=== PATIENT | female | born 1945 | race Caucasian/White ===

== ENCOUNTER 2023-10-10 03:09 | Observation (INO) | payer MEDICARE, OTHER, SELFPAY ==
[2023-10-10] VITALS (26 sets, daily range): BP systolic 98–188; BP diastolic 57–85; PULSE 66–85; RESP 10–22; TEMP 36.4–36.8; O2SAT 92–98; BMI 28.3; BMI 29.9
--- NOTE | 2023-10-10 03:22 | EDS_ITS ---
HPI History of Present Illness Chief Complaint: Headache Informant: patient and spouse/S.O. Narrative Narrative: Patient presents for a headache that started about 6 hours prior to arrival while she was resting. She states it is sharp, bifrontal, and seem like it was behind her eyes. She then states that she thinks she may have had a mini stroke. In discussing more these details, for symptom she had was that her left hand went numb around 1530 yesterday, which is around 12 hours prior to arrival/evaluation. She then noticed that the left side of her mouth/lower face did not seem to work and seem droopy then when she looked at it. She thinks this lasted maybe 30 minutes before went away. At some point she remembers being off balance yesterday but does not recall exactly what time that started. She has been walking crooked all day. The headache it seems started later, and at 1 point she states she had trouble seeing anything off to the left but that seems to have resolved. She denies having any trouble speaking or understanding others. The tells me that she was doing things that made him think she was confused off and on this evening. For instance she would turn the water faucet on for no good reason and then not know why she turned it on. She has a history of TIAs in the past. She also has a history of CAD status post CABG, stent last year, and A-fib. She is on aspirin and clopidogrel no anticoagulants. Denies any bleeding from anywhere recently. [facility] Medical History (Updated 10/10/23 @ 04:[address] Parish Cárdenas MD) CAD (coronary artery disease) GERD (gastroesophageal reflux disease) HTN (hypertension) Hypothyroid Home Medications amlodipine 10 mg tablet 10 mg PO DAILY 10/10/23 [History Last Taken Unknown] aspirin 81 mg tablet,delayed release 81 mg PO DAILY 10/10/23 [History Last Taken Unknown] atenolol 25 mg tablet 25 mg PO DAILY 10/10/23 [History Last Taken Unknown] atorvastatin 40 mg tablet 40 mg PO DAILY 10/10/23 [History Last Taken Unknown] clopidogrel 75 mg tablet 75 mg PO DAILY 10/10/23 [History Last Taken Unknown] ergocalciferol (vitamin D2) 1,250 mcg (50,000 unit) capsule 50,000 unit PO QWEEK 10/10/23 [History Last Taken Unknown] ferrous sulfate 325 mg (65 mg iron) tablet 650 mg PO DAILY 10/10/23 [History Last Taken Unknown] levothyroxine 100 mcg tablet 100 mcg PO MOWEFR 10/10/23 [History Last Taken Unknown] levothyroxine 88 mcg tablet 88 mcg PO SUTUTHSA 10/10/23 [History Last Taken Unknown] omeprazole 20 mg capsule,delayed release 20 mg PO DAILY 10/10/23 [History Last Taken Unknown] oxybutynin chloride 10 mg tablet,extended release 24 hr 10 mg PO DAILY 10/10/23 [History Last Taken Unknown] Allergy/AdvReac Type Severity Reaction Status Date / Time meperidine [From Demerol] Allergy Vomiting Verified 10/10/23 03:15 morphine Allergy Vomiting Verified 10/10/23 03:15 Surgical History (Updated 10/10/23 @ 04:[address] Parish Cárdenas MD) H/O heart artery stent Hx of CABG Social History Smoking Status: Never smoker ROS ROS ED Constitutional Constitutional ED: Denies chills or fever(s) Eyes Eyes: Reports change in vision bilateral (Trouble with visual rodriguez to the left earlier, but vision back to normal/baseline now); Denies diplopia ENT ENT ED: Denies rhinorrhea or sore throat Cardiovascular Cardiovascular: Denies chest pain or palpitations Respiratory/Chest Respiratory/Chest: Denies cough or dyspnea Gastrointestinal Gastrointestinal: Denies abdominal pain, diarrhea, nausea or vomiting Genitourinary Genitourinary ED: Denies dysuria or hematuria Musculoskeletal Musculoskeletal: Denies back pain or neck pain Integumentary Denies abscess or rash Neurologic Neurologic: Reports as per HPI, headache(s), lack of coordination and paresthesias LUE (Resolved now); Denies seizures, syncope, vertigo or weakness Psychiatric Psychiatric: Denies anxiety or suicidal thoughts EXAM Physical Exam Const Vital Signs: 10/10/23 03:10 10/10/23 03:30 10/10/23 03:51 Temperature 98.2 F Temperature Source Temporal Pulse Rate 66 74 Respiratory Rate 10 L 20 H Blood Pressure 171/79 H 169/76 H Blood Pressure Mean 109 107 Pulse Ox 92 94 Oxygen Delivery Method Room Air Room Air Room Air 10/10/23 04:00 10/10/23 04:30 10/10/23 04:47 Temperature 98.0 F Temperature Source Pulse Rate 70 73 78 Respiratory Rate 18 18 19 H Blood Pressure 161/75 H 170/85 H 169/77 H Blood Pressure Mean 103 113 107 Pulse Ox 98 93 97 Oxygen Delivery Method Room Air Room Air Positive well nourished and well developed General Appearance ED: well developed and NAD HEENT Reports moist mucous membranes normocephalic and atraumatic Eyes PERRL and EOMs intact bilaterally Neck full ROM and supple Neck Narrative: No audible carotid bruits bilaterally Resp normal respiratory effort and clear to auscultation bilaterally Cardio regular rate, regular rhythm and no murmurs Rate: Negative for tachycardic GI non-tender and non-distended Auscultation: normoactive bowel sounds Palpation: soft Back/Spine no CVA tenderness General Back: other FROM Extremity normal to inspection General Extremety ED: Negative for edema, pulses abnormal or tenderness General Extremity: Negative for edema or pulses abnormal Neuro oriented x3, CN's II-XII intact bilaterally and no sensory deficits noted Neuro Narrative: Normal speech, no aphasia. Normal neurologic exam. Normal [id number] and [id number] bilaterally. Ambulatory without ataxia but short shuffling, cautious gait. Sensorium / Orientation: awake and alert Motor Exam: strength 5/5 throughout Psych mental status grossly normal Skin no rashes or lesions noted and no wounds NIHSS NIHSS Initial: 1a Level of Consciousness: 0 1b LOC Questions (Score 2 if aphasic/stupor): 0 1c LOC Commands (Only score 1st attempt): 0 2 Best Gaze (If aphasic, use reflexive mvmts.): 0 3 Visual: 0 4 Facial Palsy: 0 5 Motor Arm Right (UN = amputation/fusion): 0 5 Motor Arm Left: 0 6 Motor Leg Right: 0 6 Motor Leg Left: 0 7 Limb ataxia (Only + if out of proportion): 0 8 Sensory (Aphasia/stupor=0 or 1, coma=2): 0 9 Best Language: 0 10 Dysarthria (mute, coma=2, intubated=UN): 0 11 Extinction and Inattention (only scored if +): 0 Total Score: 0 MDM MDM MDM Narrative Medical decision making narrative: Patient sent for emergent CT/CT angiography, I reviewed the images and the report which I agree with, it shows no hemorrhage and no LVO. Discussed with hospitalist for admission, patient was given Reglan to see if that would help her headache and prevent any nausea. It did not help her headache, so as long as she passes her ED dysphagia screen, she may have Tylenol. Blood pressure remained stable 169-171 systolic. She will need further workup. Lab Data Attestation: I reviewed the patient's lab results. Labs: Laboratory Results - last 24 hr 10/10/23 10/10/23 03:24 03:28 WBC 6.9 RBC 4.69 Hgb 13.5 Hct 41.9 MCV 89.3 MCH 28.8 MCHC 32.2 RDW Std Deviation 45.0 H RDW Coeff of Van 14.0 Plt Count 218 MPV 10.8 Immature Gran % (Auto) 0.400 Neut % (Auto) 62.8 Lymph % (Auto) 25.9 [place] % (Auto) 7.3 Eos % (Auto) 2.9 Baso % (Auto) 0.7 Absolute Neuts (auto) 4.3 Absolute Lymphs (auto) 1.78 Nucleated RBC % 0 PT 11.8 INR 0.9 APTT 27.4 Sodium 144 Potassium 3.6 Chloride 107 Carbon Dioxide 31.0 Anion Gap 6 BUN 11 Creatinine 0.77 Estim Creat Clear Calc 37.26 Est GFR (MDRD) Af Amer 93 Est GFR (MDRD) Non-Af 77 BUN/Creatinine Ratio 14.2 Glucose 120 H Calcium 8.6 Troponin I High Sens 20 POC Glucose 138 H Radiography Chest X-Ray - ED: 1 View, Read by ED Physician, No Acute Disease and Chronic Changes Diagnostic Testing: Clinical Impression(s) from Imaging Studies Head/Neck CTA 10/10/23 03:22 IMPRESSION: undefined Rhythm Strip Rhythm Strip: Sinus Rhythm Rate: 70 Ectopy: None EKG Initial EKG: Attestation: I personally reviewed and interpreted this EKG as follows: Interpretation: Sinus Rhythm, No Acute Injury Pattern and LBBB Prior EKG tracings: not available for review Prior: No Prior Management Discussion w/another healthcare provider: Hospitalist Stroke Documentation Questions Stroke Team Activated: No (Unknown when ataxia started; therefore exact last known well unk, NIHSS 0) Was Patient considered for Endovascular Intervention?: No-CTA negative, determined not to be an endovascular candidate IV Thrombolytic Administered: No (due to resolution of sx and timing) Discharge Plan Dx/Rx/DC Orders Clinical Impression: Brain TIA, Headache, Dysequilibrium Disposition Disposition: Acute Care Hospital [facility]
--- NOTE | 2023-10-10 03:22 | CT_ITS ---
EXAM: CT brain without IV contrast. HISTORY: Neuro deficit, acute, stroke suspected TECHNIQUE: No intravenous contrast. A radiation dose optimization technique was used for this scan. COMPARISON: None. LIMITATIONS: None. BRAIN: Mild involutional change. Mild low attenuation bilaterally within the deep white matter, likely secondary to chronic microvascular ischemia. 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 VENTRICLES: No hydrocephalus. EXTRA-AXIAL SPACES: No acute hemorrhage. CALVARIUM/SKULL BASE: No acute fracture. FACE/SINUSES: Mucous retention cysts or polyps in the maxillary sinuses bilaterally. SOFT TISSUES: Normal. OTHER: None. CONCLUSION: No acute intracranial abnormality. EXAM: CT angiogram brain. HISTORY: Neuro deficit, acute, stroke suspected TECHNIQUE: CTA Head and Neck Stroke W/ Contrast (and W/O if performed). Multiplanar reconstructions and 3-D reformats were obtained. A radiation dose optimization technique was used for this scan. COMPARISON: None. LIMITATIONS: None. DISTAL CAROTID ARTERIES: No significant stenosis. ANTERIOR CEREBRAL ARTERIES: No significant stenosis. MIDDLE CEREBRAL ARTERIES: No significant stenosis. POSTERIOR CEREBRAL ARTERIES: No significant stenosis. BASILAR ARTERY: No significant stenosis. OTHER: None. CONCLUSION: No aneurysm or significant stenosis. EXAM: CT angiogram neck. HISTORY: Neuro deficit, acute, stroke suspected TECHNIQUE: CTA Head and Neck Stroke W/ Contrast (and W/O if performed). Multiplanar reconstructions and 3-D reformats were obtained. A radiation dose optimization technique was used for this scan. COMPARISON: None. LIMITATIONS: Motion artifact. CAROTID ARTERIES: Calcification of the carotid bulbs bilaterally. Query postsurgical change at the left carotid bulb. Stenosis of the proximal left ICA with decrease in diameter of 50% or less. No significant stenosis. VERTEBRAL ARTERIES: No significant stenosis. BONES/SOFT TISSUES: No acute fracture. OTHER: Included portions of the upper chest show a 1.8 x 1.4 cm nodule in the right upper lobe. CONCLUSION: No significant stenosis. 1.8 cm pulmonary nodule in the right upper lobe. Malignancy is not excluded. Nonemergent chest CT is recommended to evaluate for additional pulmonary nodules. An additional chest CT is recommended in 3 months with consideration for PET/CT or biopsy. Electronically Signed: August Wang MD at 4:25 EST , CT/CTA Head AND Neck W/ Contrast IMPRESSION: undefined
[2023-10-10 03:31] LABS: Absolute Lymphocyte Count 1.78 X10^3/uL (0.83-4.51); Absolute Neutrophil Count 4.3 X10^3/uL (2.0-7.7); Basophil# 0.05 X10^3/uL; Basophil% 0.7 % (0-1); Eosinophils% 2.9 % (0-5); Hematocrit 41.9 % (37-47); Hemoglobin 13.5 g/dL (12.0-15.0); Lymphocyte # 1.78 X10^3/ul (0.83-4.51); Lymphocyte % 25.9 % (19-41); Mean Corp Hgb Conc 32.2 g/dL (32-36); Mean Corpuscular Hgb 28.8 pg (27.0-32.0); Mean Corpuscular Volume 89.3 fL (81-99); Mean Platelet Vol. 10.8 fl (6.2-12.0); Monocyte% 7.3 % (0-10); NRBC Flagged by Analyzer 0 % (0-5); Neutrophil # 4.32 X10^3/uL (2.7-7.7); Neutrophil % 62.8 % (47-70); Platelet Count 218 K/mm3 (150-450); Red Blood Count 4.69 M/mm3 (4.2-5.4); White Blood Count 6.9 K/mm3 (4.4-11.0)
--- NOTE | 2023-10-10 03:40 | RAD_ITS ---
INDICATION: Neuro deficit, acute, stroke suspected EXAMINATION: Frontal view of the chest COMPARISON: None. FINDINGS: Frontal view of the chest was obtained. The cardiac silhouette is not enlarged. No confluent airspace disease. 1.6 cm pulmonary nodule in the right upper lobe. No pneumothorax. Bilateral shoulder prostheses. Postsurgical changes after CABG. RAD/Chest 1 View IMPRESSION: 1.6 cm pulmonary nodule in the right upper lobe. Malignancy is not excluded. Nonemergent chest CT follow-up is recommended. Electronically Signed: August Wang MD at 5:19 EST ,
[2023-10-10 03:47] LABS: Bedside Glucose 138 mg/dL (74-106)
[2023-10-10] MEDS: Metoclopramide 10 MG/2 ML Vial 5 MG IV (03:49)
[2023-10-10 03:50] LABS: Anion Gap 6 (5-15); BUN 11 mg/dL (7-18); BUN/Creat Ratio 14.2 RATIO (10-20); Calcium,Total 8.6 mg/dL (8.5-10.1); Chloride 107 mmol/L (98-107); Creatinine, Serum 0.77 mg/dL (0.55-1.02); EST Glomerular Filtration Rate 77 mL/min (>60); Est Glom Filt Rate - Afr Amer 93 mL/min (>60); Estimated Creatinine Clearance 37.26 ml/min; Glucose 120 mg/dL (74-106); Potassium 3.6 mmol/L (3.5-5.1); Sodium Level 144 mmol/L (136-145); Troponin-I HS 20 pg/mL (3.0-54.0)
[2023-10-10 04:00] LABS: International Normalized Ratio 0.9; Prothrombin Time (Protime)PT. 11.8 SECONDS (11.7-14.9)
[2023-10-10 04:01] LABS: Partial Thromboplast Time 27.4 Seconds (24.1-36.2)
[2023-10-10] MEDS: Acetaminophen 500 MG Tablet 1000 MG PO (04:36)
--- NOTE | 2023-10-10 05:08 | PCM.HP.STD ---
[facility] - [facility] General Date of Service: 10/10/23 Chief Complaint: Severe left eye pain, headache, disequilibrium and confusion. HPI Narrative CORNELIO VERMA, is a 77 right-handed female with a past medical history of essential hypertension, hyperlipidemia, overweight; with a BMI of 28.3 this admission, history of CAD; s/p CABG with subsequent stent placed last year still on BASA and Plavix, history of Atrial Fibrillation, history of TIA, history of multinodular goiter; status post thyroidectomy on chronic Synthroid, history of coronary artery disease; status post stents on chronic baby aspirin and Plavix, history of carotid stenosis; status post endarterectomy, iron-deficiency anemia, overactive bladder, GERD and OA who presents to [facility] ER complaining of severe Left eye pain, headache, disequilibrium and confusion. Mrs. Verma has a vague recollection of recent events, but thankfully her was at the bedside to augment the history as he was a direct eyewitness. According to him her symptoms began abruptly around 19:00 hours on the evening of October 09, 2023 with the sudden-onset of a headache that was present across her entire forehead while she was resting. She then developed a sharp pain behind her Left eye that was ~9/10 and excruciating with a significant decrease in her Left-sided visual rodriguez along with a Left facial droop and numbness in her Left hand that lasted about 30 minutes before it virtually resolved. Her then noticed her having trouble with her balance while she was fumbling with the sink along with significant confusion with the patient not able to follow commands or understand him though she denies any trouble speaking or understanding others. She is not currently anticoagulated and she denies similar previous symptoms. She is still having a mild headache with faint residual pain behind her Left eye with her blood pressure persistently elevated in the ~170 mm Hg systolic range suspicious for TIA/CVA. She denies associated fever, chills, nausea, vomiting, diarrhea or constipation. She was then admitted to the CDU under observation status for a TIA/CVA workup for a stay that is expected to be less than 48 hours. [facility] Medical History (Updated 10/10/23 @ 06:[address] Kavon Whitt DO) CAD (coronary artery disease) GERD (gastroesophageal reflux disease) HTN (hypertension) Hypothyroid Home Medications amlodipine 10 mg tablet 10 mg PO DAILY 10/10/23 [History Last Taken Unknown] aspirin 81 mg tablet,delayed release 81 mg PO DAILY 10/10/23 [History Last Taken Unknown] atenolol 25 mg tablet 25 mg PO DAILY 10/10/23 [History Last Taken Unknown] atorvastatin 40 mg tablet 40 mg PO DAILY 10/10/23 [History Last Taken Unknown] clopidogrel 75 mg tablet 75 mg PO DAILY 10/10/23 [History Last Taken Unknown] ergocalciferol (vitamin D2) 1,250 mcg (50,000 unit) capsule 50,000 unit PO QWEEK 10/10/23 [History Last Taken Unknown] ferrous sulfate 325 mg (65 mg iron) tablet 650 mg PO DAILY 10/10/23 [History Last Taken Unknown] levothyroxine 100 mcg tablet 100 mcg PO MOWEFR 10/10/23 [History Last Taken Unknown] levothyroxine 88 mcg tablet 88 mcg PO SUTUTHSA 10/10/23 [History Last Taken Unknown] omeprazole 20 mg capsule,delayed release 20 mg PO DAILY 10/10/23 [History Last Taken Unknown] oxybutynin chloride 10 mg tablet,extended release 24 hr 10 mg PO DAILY 10/10/23 [History Last Taken Unknown] Allergy/AdvReac Type Severity Reaction Status Date / Time meperidine [From Demerol] Allergy Vomiting Verified 10/10/23 03:15 morphine Allergy Vomiting Verified 10/10/23 03:15 Surgical History (Updated 10/10/23 @ 06:[address] Kavon Whitt DO) H/O heart artery stent Hx of CABG Social History Smoking Status: Never smoker ROS ROS Narrative Review of systems: Constitutional: Patient denies fevers or chills. Eyes: Patient admits to left visual field cut with vision now back to baseline. She denies diplopia. ENT: Patient denies runny nose, sore throat or ear pain. Cardiovascular: Patient denies chest pain, palpitations or lower extremity edema. Respiratory: Patient denies shortness of breath or cough. Gastrointestinal: Patient denies abdominal pain, nausea, vomiting, diarrhea or constipation. Genitourinary: Patient denies dysuria, hematuria or urinary frequency. Musculoskeletal: Patient denies neck pain or back pain. Integumentary: Patient denies abscess, abrasion or rash. Neurologic: As per HPI the patient admits to frontal headache along with left visual field cut and severe pain from behind the left eye. Now the symptoms have virtually resolved. Psychiatric: Patient denies anxiety or suicidal thoughts. Allergic: Patient denies lip swelling, tongue swelling or urticaria. Hematologic: Patient denies easy bleeding or easy bruisability. 14 point review systems otherwise negative except for positives noted above in HPI. Vital Signs Vital Signs Vital Signs: 10/10/23 03:10 10/10/23 03:30 10/10/23 03:51 Temperature 98.2 F Temperature Source Temporal Pulse Rate 66 74 Respiratory Rate 10 L 20 H Blood Pressure 171/79 H 169/76 H Blood Pressure Mean 109 107 Pulse Ox 92 94 Oxygen Delivery Method Room Air Room Air Room Air 10/10/23 04:00 10/10/23 04:30 10/10/23 04:47 Temperature 98.0 F Temperature Source Pulse Rate 70 73 78 Respiratory Rate 18 18 19 H Blood Pressure 161/75 H 170/85 H 169/77 H Blood Pressure Mean 103 113 107 Pulse Ox 98 93 97 Oxygen Delivery Method Room Air Room Air 10/10/23 05:00 Temperature Temperature Source Pulse Rate 72 Respiratory Rate 16 Blood Pressure 155/81 H Blood Pressure Mean 105 Pulse Ox 98 Oxygen Delivery Method Room Air Weight Weight: 154 lb 15.759 oz Body Mass Index (BMI) 28.3 Physical Exam Const alert, oriented x3, no apparent distress, average body habitus and healthy appearing General Appearance: cooperative HEENT normocephalic, head/scalp atraumatic, hearing grossly normal bilaterally, moist oral mucous membranes and oropharynx normal Eyes PERRL, EOMs intact bilaterally and conjunctivae normal Neck no lymphadenopathy and supple Resp normal respiratory effort, no retractions, no use of accessory muscles and clear to auscultation bilaterally Cardio regular rate and regular rhythm GI normal to inspection, nondistended, normoactive bowel sounds, soft to palpation, non-tender and non-distended Extremity normal to inspection and full ROM Skin Skin Narrative: Patient has no evidence of rash at this time. Neuro oriented x3, CN's II-XII intact bilaterally, moves all extremities and no focal motor deficits Sensorium / Orientation: awake, alert, oriented to person, oriented to place and oriented to time Speech: speech normal Motor Exam: strength 5/5 throughout Psych affect normal Results Medical Records Data Attestation: I reviewed the patient's medical records Lab / Micro Data Attestation: I reviewed the patient's lab results. 10/10/23 03:24 10/10/23 03:24 Labs: Laboratory Results - last 24 hr 10/10/23 03:24: WBC 6.9, RBC 4.69, Hgb 13.5, Hct 41.9, MCV 89.3, MCH 28.8, MCHC 32.2, RDW Std Deviation 45.0 H, RDW Coeff of Van 14.0, Plt Count 218, MPV 10.8, Immature Gran % (Auto) 0.400, Neut % (Auto) 62.8, Lymph % (Auto) 25.9, [place] % (Auto) 7.3, Eos % (Auto) 2.9, Baso % (Auto) 0.7, Absolute Neuts (auto) 4.3, Absolute Lymphs (auto) 1.78, Nucleated RBC % 0, PT 11.8, INR 0.9, APTT 27.4, Sodium 144, Potassium 3.6, Chloride 107, Carbon Dioxide 31.0, Anion Gap 6, BUN 11, Creatinine 0.77, Estim Creat Clear Calc 37.26, Est GFR (MDRD) Af Amer 93, Est GFR (MDRD) Non-Af 77, BUN/Creatinine Ratio 14.2, Glucose 120 H, Calcium 8.6, Troponin I High Sens 20 10/10/23 03:28: POC Glucose 138 H Rhythm Strip Rhythm Strip: Sinus Rhythm Rate: 70 Ectopy: None Imagaing Radiology Impression Head/Neck CTA 10/10/23 03:22 IMPRESSION: undefined Assessment & Plan Assessment/Plan (1) Brain TIA: (2) Headache: QUALIFIERS: Headache type: unspecified Headache chronicity pattern: acute headache Intractability: not intractable Qualified Code(s): R51.9 - Headache, unspecified (3) Dysequilibrium: PLAN: Plan 1. TIA versus CVA; with transient frontal headache, severe retro-orbital left eye pain with transient loss of left-sided visual field, disequilibrium and confusion in the setting of a known previous history of TIA (but not as severe as this episode) - Admit to CDU under observation status. Proceed with MRI of the brain without contrast to definitively evaluate for CVA with CTA of the head and neck in the ER negative for acute pathologic changes. Check carotid Doppler to evaluate for stenosis. Check echocardiogram to evaluate left ventricular ejection fraction and to assess for possible thrombus in the left atrial appendage with history of atrial fibrillation. Continue baby aspirin, Plavix and statin as previous. Allow for permissive hypertension until CVA is definitively ruled out on MRI. Finally, we will consult [facility] to see this patient on rounds in the a.m. without appreciated in advance. 2. History of carotid stenosis; status post carotid endarterectomy - Apparently stable with no issues till now. Carotid Doppler pending in the a.m. as outlined above. 3. Essential hypertension - Hold scheduled antihypertensives. Systolic blood pressure should only be treated if it rises above ~210 mm Hg. 3. Hyperlipidemia - Continue statin and check lipid profile this admission in light of #1. 4. Overweight; with a BMI of 28.3 this admission - Weight loss will be recommended. 5. History of CAD; s/p CABG with subsequent stent placed last year still on BASA and Plavix - Stable. Resume current antiplatelet regimen as previous. 6. History of Atrial Fibrillation - Patient currently in normal sinus rhythm but we will monitor for possible intermittent arrhythmia that could potentially explain #1. 7. History of multinodular goiter; status post thyroidectomy on chronic Synthroid - Continue Synthroid as previous and check TSH this admission. 8. Iron-deficiency anemia - Resume oral iron supplementation. 9. Overactive bladder - Continue oxybutynin. 10. GERD - Stable with patient not on PPI or H2 heather at this time. 11. OA - Stable. Give Tylenol as needed pain 12. DVT prophylaxis - Lovenox 40 mg subcu daily. Total time: Approximately 45 minutes. Charges/Coding Visit Charges OBSV E&M: 18399 Observ/hosp same date L1
[2023-10-10] MEDS: Ondansetron 4 MG/2 ML Vial IV (06:03)
[2023-10-10] MEDS: fentaNYL 100 MCG/2 ML Ampul 25 MCG IV (06:04)
--- NOTE | 2023-10-10 06:15 | CDU_ITS ---
Reason For Study: TIA Rt. Velocities/BP Lt. Velocities/BP Prox CCA 56.3/12.8 cm/sec. Prox CCA 66.3/12.5 cm/sec. Mid CCA 53.5/14.7 cm/sec. Mid CCA 43.3/11.9 cm/sec. Dist CCA 48.7/12.8 cm/sec. Dist CCA 48.5/14.5 cm/sec. Prox ICA 65.8/20.4 cm/sec. Prox ICA 161.6/51.8 cm/sec. Mid ICA 64.6/25.3 cm/sec. Mid ICA 101.0/22.6 cm/sec. Dist ICA 75.6/29.0 cm/sec. Dist ICA 65.8/18.5 cm/sec. Rt. ICA/CCA = 1.4. Lt. ICA/CCA = 3.7. Prox ECA 62.9/9.1 cm/sec. Prox ECA 90.4/6.9 cm/sec. Rt. Vert. 44.9/13.0 cm/sec. Lt. Vert. 37.4/12.5 cm/sec. Right Extracranial There is intimal thickening but no significant atherosclerotic plaque noted in the right common carotid artery. There is heterogeneous, irregular atherosclerotic plaque noted in the right internal carotid artery. HX CEA. There is homogeneous, smooth atherosclerotic plaque noted in the right external carotid artery. Antegrade flow is noted in the right vertebral artery. Left Extracranial There is heterogeneous, irregular atherosclerotic plaque noted in the left common carotid artery. There is heterogeneous, irregular atherosclerotic plaque noted in the left internal carotid artery. There is heterogeneous, irregular atherosclerotic plaque noted in the left external carotid artery. Antegrade flow is noted in the left vertebral artery. Procedure Carotid Duplex [id number]. This is a Carotid Duplex examination using B-mode, color flow and specral Doppler. The exam was diagnostic. Exam performed in department. VL/Carotid Duplex Ultrasound Interpretation Summary Mild (<50%) stenosis right extracranial internal carotid. Moderate (50-69%) stenosis left extracranial internal carotid. Patent and antegrade vertebrals bilaterally. Ordering Physician: Kavon Whitt Performed By: Oscar Fuentes RVT
--- NOTE | 2023-10-10 06:15 | MRI_ITS ---
HISTORY: TIA versus CVA with severe left frontal headache. TECHNIQUE: Multiplanar and multisequence MR images of the brain were obtained without contrast. 278 images. COMPARISON: CT same day, MRI 04/15/2009. FINDINGS: BRAIN PARENCHYMA: Increased foci of increased FLAIR signal in the bilateral cerebral white matter compared to remote prior. No abnormal focus of restricted diffusion. No acute intracranial hemorrhage identified. CSF SPACES: Mild volume loss. No significant midline shift or other mass effect.No extra-axial fluid collection. VASCULAR SYSTEM: Major intracranial flow voids are maintained. PARANASAL SINUSES AND MASTOID AIR CELLS: No significant air fluid levels. ORBITS: Bilateral lens resections. MRI/Brain without Contrast IMPRESSION: No evidence for acute infarct. Chronic involutional and white matter changes. Electronically Signed: Betty Vang MD at 11:46 EST ,
--- NOTE | 2023-10-10 06:15 | ECHOD_ITS ---
Reason For Study: TIA/CVA Procedure This was a 2D Doppler, Color Flow transthoracic echocardiogram. Exam performed portable in patient room. Left Ventricle Normal LV size. Moderate concentric left ventricular hypertrophy. The left ventricular ejection fraction is 70 %. Diastolic function is indeterminate. Right Ventricle Normal right ventricle. Atria The left atrium is mildly enlarged. Normal right atrium. Bubble contrast study is negative for PFO/ASD. Mitral Valve Severe mitral annular calcification. Mild (1+) mitral valve insufficiency. Tricuspid Valve Moderate to severe tricuspid valve insufficiency. Right ventricular systolic pressure estimated to be 55 mmHg. Aortic Valve Trisinus/trileaflet aortic valve. Severe calcification of the noncoronary cusp of the aortic valve. Mild (1+) aortic valve insufficiency. Pulmonic Valve Mild (1+) pulmonic valve insufficiency. Great Vessels Normal sized aortic root. Pericardium/Pleural No pericardial effusion. Medication Performed a rapid injection of agitated mix of 9 cc saline and 1cc air to assess for atrial septal defect. MMode/2D Measurements & Calculations LVIDd: 4.4 cm IVSd: 1.3 cm LVOT diam: 2.0 cm LVIDs: 2.9 cm LVPWd: 1.2 cm RVDd: 3.7 cm FS: 33.5 % LVOT area: 3.0 cm2 Ao root diam: 3.2 cm LAV(MOD-bp): 51.6 ml LVAd ap4: 30.1 cm2 LAV(MOD-bp) Indexed: 30.2 ml/m2 LVLd ap4: 7.9 cm LAV(MOD-sp2): 50.1 ml EDV(MOD-sp4): 92.6 ml LAV(MOD-sp4): 50.4 ml EDV(sp4-el): 96.9 ml LVAs ap4: 16.6 cm2 LVLs ap4: 6.6 cm ESV(MOD-sp4): 34.0 ml ESV(sp4-el): 35.4 ml EF(MOD-sp4): 63.3 % EF(sp4-el): 63.5 % SV(MOD-sp4): 58.6 ml SV(sp4-el): 61.5 ml LA A4 area: 18.9 cm2 LA dimension(2D): 4.2 cm RA A4 area: 18.0 cm2 Time Measurements MV dec time: 0.24 sec Doppler Measurements & Calculations MV E max adrián: 136.0 cm/sec Lat Peak E' Adrián: 4.4 cm/sec Med Peak E' Adrián: 5.2 cm/sec MV A max adrián: 150.4 cm/sec E/E' lat: 30.8 E/E' med: 26.0 MV E/A: 0.90 MV V2 max: 170.6 cm/sec MV P1/2t max adrián: 135.1 cm/sec Ao V2 max: 182.1 cm/sec MV max P.6 mmHg MV P1/2t: 99.2 msec Ao max P.3 mmHg MV V2 mean: 112.7 cm/sec MV dec slope: 399.1 cm/sec2 Ao V2 mean: 139.0 cm/sec MV mean P.6 mmHg MVA(P1/2t): 2.2 cm2 Ao mean P.5 mmHg MV V2 VTI: 47.6 cm Ao V2 VTI: 44.6 cm MVA(VTI): 2.0 cm2 AV (velocity ratio): 0.72 CEDRIC(I,D): 2.2 cm2 CEDRIC(V,D): 2.0 cm2 AI max adrián: 463.0 cm/sec LV V1 max: 120.1 cm/sec SV(LVOT): 97.2 ml AI max P.8 mmHg LV V1 max P.8 mmHg LV V1 mean P.9 mmHg AI dec slope: 329.8 cm/sec2 LV V1 mean: 93.8 cm/sec AI P1/2t: 411.2 msec LV V1 VTI: 32.1 cm PA V2 max: 112.3 cm/sec TR max adrián: 352.6 cm/sec TR max P.7 mmHg ECHO/Echo Complete Interpretation Summary Moderate concentric left ventricular hypertrophy. The left ventricular ejection fraction is 70 %. Diastolic function is indeterminate. The left atrium is mildly enlarged. Bubble contrast study is negative for PFO/ASD. Severe mitral annular calcification. Mild (1+) mitral valve insufficiency. Moderate to severe tricuspid valve insufficiency. Right ventricular systolic pressure estimated to be 55 mmHg. Severe calcification of the noncoronary cusp of the aortic valve. Mild (1+) aortic valve insufficiency. Ordering Physician: Kavon Whitt Referring Physician: KEITH MARTI Performed By: Vita Womack RDCS
[2023-10-10 07:08] LABS: Alcohol, Blood (Medical)-Serum < 3.0 mg/dL
[2023-10-10 07:15] LABS: Thyroid Stim Hormone (TSH) 0.51 uIU/mL (0.358-3.74)
[2023-10-10] MEDS: Acetaminophen 325 MG Tablet 650 MG PO ×2 (10:27→14:36)
--- NOTE | 2023-10-10 11:12 | CT_ITS ---
INDICATION: lung mass EXAMINATION: CT CHEST WITHOUT CONTRAST - CT Chest W/O Contrast Injection TECHNIQUE: Helically acquired images were obtained of the chest. A radiation dose optimization technique was used for this scan. IV Contrast dosage and agent: None. RADIATION DOSAGE (If Supplied By Facility): CTDIvol = ( 14.23 ) mGy, DLP = ( 426.63 ) mGycm COMPARISON: Chest radiograph dated October 10, 2023 FINDINGS: Motion artifact degrades anatomic detail. LUNGS, PLEURA AND LARGE AIRWAYS: Within the right upper lobe there is a 2.2 x 1.6 x 1.6 cm pulmonary nodule. There is minimal lower lobe dependent atelectasis. THYROID: No thyroid lesions. HEART AND PERICARDIUM: There is cardiomegaly. No pericardial effusion. There are mitral annulus calcifications. CORONARY ARTERIES: Coronary artery calcification is seen. VESSELS: Thoracic aorta is not dilated. There are peripheral calcifications of the thoracic aorta. MEDIASTINUM AND BASILIA: There appears to be soft tissue prominence within the right hilar region. Esophagus is unremarkable. No hiatal hernia. UPPER ABDOMEN: No acute pathology. BONES: There are degenerative changes of the thoracic spine. There are bilateral shoulder arthroplasties in place. CT/Chest without Contrast IMPRESSION: 2.2 x 1.6 x 1.6 and meter right upper lobe pulmonary nodule concerning for malignancy, recommend tissue sampling or PET/CT for further evaluation. Prominence of the right hilar region which may be secondary to lymphadenopathy. Cardiomegaly. Atherosclerosis. Electronically Signed: Kayla Miner MD at 15:49 EST ,
--- NOTE | 2023-10-10 11:18 | PCM.PN.HOSP ---
Reason for Visit Reason for Visit: Diagnoses Transient cerebral ischemic attack, unspecified (10/10/23) Dizziness and giddiness (10/10/23) Headache, unspecified (10/10/23) Presence of aortocoronary bypass graft (10/10/23) Presence of coronary angioplasty implant and graft (10/10/23) Objective Data Objective Data Vital Signs: Vital Signs Temp Pulse Resp BP Pulse Ox O2 Del Method O2 Flow Rate 98.2 F 70 16 155/74 H 94 Nasal Cannula 2 10/10/23 08:05 10/10/23 08:05 10/10/23 08:05 10/10/23 08:05 10/10/23 08:05 10/10/23 08:05 10/10/23 08:05 Oxygen Flow Rate (L/min) 2 Oxygen Delivery Method Nasal Cannula Weight: 74.4 kg Body Mass Index (BMI) 29.9 Lab / Micro Data 10/10/23 03:24 10/10/23 03:24 Labs: Laboratory Results - last 24 hr 10/10/23 03:24: WBC 6.9, RBC 4.69, Hgb 13.5, Hct 41.9, MCV 89.3, MCH 28.8, MCHC 32.2, RDW Std Deviation 45.0 H, RDW Coeff of Van 14.0, Plt Count 218, MPV 10.8, Immature Gran % (Auto) 0.400, Neut % (Auto) 62.8, Lymph % (Auto) 25.9, Hubbard % (Auto) 7.3, Eos % (Auto) 2.9, Baso % (Auto) 0.7, Absolute Neuts (auto) 4.3, Absolute Lymphs (auto) 1.78, Nucleated RBC % 0, PT 11.8, INR 0.9, APTT 27.4, Sodium 144, Potassium 3.6, Chloride 107, Carbon Dioxide 31.0, Anion Gap 6, BUN 11, Creatinine 0.77, Estim Creat Clear Calc 37.26, Est GFR (MDRD) Af Amer 93, Est GFR (MDRD) Non-Af 77, BUN/Creatinine Ratio 14.2, Glucose 120 H, Calcium 8.6, Troponin I High Sens 20, TSH 0.51 10/10/23 03:28: POC Glucose 138 H 10/10/23 06:20: Ethyl Alcohol < 3.0 Radiography Diagnostic Testing: Radiology Impression Head/Neck CTA 10/10/23 03:22 IMPRESSION: undefined Chest X-Ray 10/10/23 03:40 IMPRESSION: 1.6 cm pulmonary nodule in the right upper lobe. Malignancy is not excluded. Nonemergent chest CT follow-up is recommended. Electronically Signed: August Wang MD at 5:19 EST Reading Location ID and State: [address] [place] [address] Tel , Service support , Rhythm Strip Rhythm Strip: Sinus Rhythm Rate: 70 Ectopy: None Assessment & Plan Assessment/Plan (1) Brain TIA: (2) Headache: QUALIFIERS: Headache type: unspecified Headache chronicity pattern: acute headache Intractability: not intractable Qualified Code(s): R51.9 - Headache, unspecified (3) Dysequilibrium: PLAN: Plan 1. TIA versus CVA; with transient frontal headache, severe retro-orbital left eye pain with transient loss of left-sided visual field, disequilibrium and confusion in the setting of a known previous history of TIA (but not as severe as this episode) - Admit to CDU under observation status. Proceed with MRI of the brain without contrast to definitively evaluate for CVA with CTA of the head and neck in the ER negative for acute pathologic changes. Check carotid Doppler to evaluate for stenosis. Check echocardiogram to evaluate left ventricular ejection fraction and to assess for possible thrombus in the left atrial appendage with history of atrial fibrillation. Continue baby aspirin, Plavix and statin as previous. Allow for permissive hypertension until CVA is definitively ruled out on MRI. Finally, we will consult [facility] to see this patient on rounds in the a.m. without appreciated in advance. 2. History of carotid stenosis; status post carotid endarterectomy - Apparently stable with no issues till now. Carotid Doppler pending in the a.m. as outlined above. 3. Essential hypertension - Hold scheduled antihypertensives. Systolic blood pressure should only be treated if it rises above ~210 mm Hg. 3. Hyperlipidemia - Continue statin and check lipid profile this admission in light of #1. 4. Overweight; with a BMI of 28.3 this admission - Weight loss will be recommended. 5. History of CAD; s/p CABG with subsequent stent placed last year still on BASA and Plavix - Stable. Resume current antiplatelet regimen as previous. 6. History of Atrial Fibrillation - Patient currently in normal sinus rhythm but we will monitor for possible intermittent arrhythmia that could potentially explain #1. 7. History of multinodular goiter; status post thyroidectomy on chronic Synthroid - Continue Synthroid as previous and check TSH this admission. 8. Iron-deficiency anemia - Resume oral iron supplementation. 9. Overactive bladder - Continue oxybutynin. 10. GERD - Stable with patient not on PPI or H2 heather at this time. 11. OA - Stable. Give Tylenol as needed pain 12. DVT prophylaxis - Lovenox 40 mg subcu daily. Total time: Approximately 45 minutes.
[2023-10-10] MEDS: Ketorolac 15 MG/ML Vial IV (12:05)
[2023-10-10] MEDS: 0.9% Saline Lock 10 ML Syringe IV ×2 (12:06→16:59)
--- NOTE | 2023-10-10 12:46 | STROKE.CONS ---
Assessment and Plan: Stroke Assessment/Plan CORNELIO VERMA is a 77 right handed F with a history of Afib (was on coumadin several years ago but was taken off it by her welfare aide- she denies bleeding problems on it), CAD s/p cardiac stents 07/2023 on Asa/plavix, GERD, HTN, Hypothyroidism who presents for evaluation of epsidoe of left facial droop and left hand numbness. Neurological examination shows nonfocal exam, NIHSS-0. Neuroimaging shows negative CT/CTA/MRI brain DWI. Assessment: DWI negative TIA Plan: TIA work-up completed. TIA mechanism most like cardioembolism due to atrial fibrillation. Discussed with patient, the guidelines for secondary stroke prevention in Afib is for anti-coagulation. Recommend starting NOAC (Eliquis). However, I recommend avoiding triple therapy (Eliquis/asa/plavix) which is to high risk for bleeding. If agree [facility] hospital cardiology, would favor Eliquis and aspirin (stopping plavix). If cardiology wants dual anti-platelets due to cardiac stents, then would delay eliquis until after dAPT is discontinued. I messaged primary team Dr. Freedman my recommendations. HPI Consult Data Date of Consult: 10/10/23 HPI Narrative HPI Narrative: CORNELIO VERMA, is a 77 F right handed F with a history of Afib (was on coumadin several years ago but was taken off it by her welfare aide- she denies bleeding problems on it), CAD s/p cardiac stents, GERD, HTN, Hypothyroidism on Asa/plavix at home who presents for evaluation of episode of left facial droop and left hand numbness that occurred on 10/09/2023 at 7p. Episode lasted abut 30 minutes then resolved. She also noted a severe headache since yesterday 06/16, tylenol does not work. She presented to [place] ER yesterday. CT brain negative. CTA head/neck negative. MRI brain DWI negative. TTE EF 70% with mild LA enlargement, no shunt. This morning she feels back to baseline, aside from the headache which persists. She denies history of migraines. [facility] Medical History CAD (coronary artery disease) GERD (gastroesophageal reflux disease) HTN (hypertension) Hypothyroid Home Medications amlodipine 10 mg tablet 10 mg PO DAILY blood pressure 10/10/23 [History Last Taken Unknown] aspirin 81 mg tablet,delayed release 81 mg PO DAILY heart health 10/10/23 [History Last Taken Unknown] atenolol 25 mg tablet 25 mg PO DAILY blood pressure 10/10/23 [History Last Taken Unknown] atorvastatin 40 mg tablet 40 mg PO DAILY cholesterol 10/10/23 [History Last Taken Unknown] clopidogrel 75 mg tablet 75 mg PO DAILY blood thinner 10/10/23 [History Last Taken Unknown] ergocalciferol (vitamin D2) 1,250 mcg (50,000 unit) capsule 50,000 unit PO QWEEK supplement 10/10/23 [History Last Taken Unknown] ferrous sulfate 325 mg (65 mg iron) tablet 650 mg PO DAILY supplement 10/10/23 [History Last Taken Unknown] levothyroxine 100 mcg tablet 100 mcg PO MOWEFR thryoid 10/10/23 [History Last Taken Unknown] levothyroxine 88 mcg tablet 88 mcg PO SUTUTHSA thyroid 10/10/23 [History Last Taken Unknown] omeprazole 20 mg capsule,delayed release 20 mg PO DAILY stomach 10/10/23 [History Last Taken Unknown] oxybutynin chloride 10 mg tablet,extended release 24 hr 10 mg PO DAILY bladder 10/10/23 [History Last Taken Unknown] Allergy/AdvReac Type Severity Reaction Status Date / Time meperidine [From Demerol] Allergy Vomiting Verified 10/10/23 03:15 morphine Allergy Vomiting Verified 10/10/23 03:15 Surgical History H/O heart artery stent Hx of CABG Social History (Updated 10/10/23 @ 08:26 by Raeann Treadwell) household members: spouse housing: house Smoking Status: Never smoker Vital Signs Vital Signs Vital Signs: 10/10/23 03:10 10/10/23 03:30 10/10/23 03:51 Temperature 98.2 F Temperature Source Temporal Pulse Rate 66 74 Respiratory Rate 10 L 20 H Blood Pressure 171/79 H 169/76 H Blood Pressure Mean 109 107 Blood Pressure Source Blood Pressure Position Blood Pressure Location Pulse Ox 92 94 Oxygen Delivery Method Room Air Room Air Room Air Oxygen Flow Rate (L/min) 10/10/23 04:00 10/10/23 04:30 10/10/23 04:47 Temperature 98.0 F Temperature Source Pulse Rate 70 73 78 Respiratory Rate 18 18 19 H Blood Pressure 161/75 H 170/85 H 169/77 H Blood Pressure Mean 103 113 107 Blood Pressure Source Blood Pressure Position Blood Pressure Location Pulse Ox 98 93 97 Oxygen Delivery Method Room Air Room Air Oxygen Flow Rate (L/min) 10/10/23 05:00 10/10/23 05:30 10/10/23 06:00 Temperature Temperature Source Pulse Rate 72 85 74 Respiratory Rate 16 15 18 Blood Pressure 155/81 H 155/68 H 161/72 H Blood Pressure Mean 105 97 101 Blood Pressure Source Blood Pressure Position Blood Pressure Location Pulse Ox 98 94 93 Oxygen Delivery Method Room Air Room Air Room Air Oxygen Flow Rate (L/min) 10/10/23 06:30 10/10/23 07:00 10/10/23 07:09 Temperature Temperature Source Pulse Rate 68 68 Respiratory Rate 16 16 16 Blood Pressure 163/67 H 143/67 H Blood Pressure Mean 99 92 Blood Pressure Source Blood Pressure Position Blood Pressure Location Pulse Ox 98 95 Oxygen Delivery Method Room Air Room Air Oxygen Flow Rate (L/min) 10/10/23 08:05 Temperature 98.2 F Temperature Source Temporal Pulse Rate 70 Respiratory Rate 16 Blood Pressure 155/74 H Blood Pressure Mean 101 Blood Pressure Source Monitor Blood Pressure Position Semi-Fowlers Blood Pressure Location Right Arm Pulse Ox 94 Oxygen Delivery Method Nasal Cannula Oxygen Flow Rate (L/min) 2 Weight Weight: 74.4 kg Body Mass Index (BMI) 29.9 EEG Results Procedure Details EEG Procedure Details: NIHSS NIHSS Nursing Documentation NIHSS Nursing Documentation: NIHSS: Ischemic Stroke/TIA Start: 10/10/23 07:58 Text: For ICU Patients: NIH sroke scale at Status: Complete presentation and every 2 hours or with change in RN caregiver Freq: [id number] Protocol: Activity Type Activity Date Activity User E-sign Co-sign Detail Recorded Client Recorded Date Recorded By Document 10/10/23 08:06 JS Desktop 10/10/23 08:16 JS 10/10/23 08:06 NIH Stroke Scale [NIHSS] A score of 0 is normal or asymptomatic . Total possible score is 42. Inpatient: RN or Physician to activate a stroke alert for onset of new stroke symptoms or with NIHSS increase >/= 3 points. Following change in neurological status, NIHSS will be performed per physician order or more frequently PRN. -1a. Level of Consciousness Alert; keenly responsive -1b. LOC Questions Answers BOTH questions correctly. -1c. LOC Commands Performs both tasks correctly . -2. Best Gaze Normal -3. Visual Partial hemianopia -4. Facial Palsy Normal symmetrical movements -5a. Left Arm No drift; arm holds 90 (or 45 ) degrees for full 10 seconds -'UN' explanation Unable to fully extend arm d/t bad shoulder -5b. Right Arm No drift; arm holds 90 (or 45 ) degrees for full 10 seconds -6a. Left Leg No drift; leg holds 30-degree position for full 5 seconds -6b. Right Leg No drift; leg holds 30-degree position for full 5 seconds -7. Limb Ataxia Absent -8. Sensory Normal; no sensory loss -9. Best Language No aphasia; normal -10. Dysarthria Normal -11. Extinction and Inattention No abnormality -Total 1 Query Text:A score of 0 is normal or asymptomatic. Total possible score is 42 . ED: Notify Physician for NIHSS increase by > / = 3 points. Inpatient: RN or Physician to activate a stroke alert for NIHSS increase of > / = 3 points. Coma Scale [Assess] -Eye Opening Spontaneous -Motor Obeys Commands -Verbal Oriented [Total] -Coma Scale Total 15 NIHSS 1a. Level of Consciousness: Alert; keenly responsive 1b. LOC Questions: Answers BOTH questions correctly. 1c. LOC Commands: Performs both tasks correctly. 2. Best Gaze: Normal 3. Visual: No visual loss 4. Facial Palsy: Normal symmetrical movements 5a. Left Arm: No drift; arm holds 90 (or 45) degrees for full 10 seconds 5b. Right Arm: No drift; arm holds 90 (or 45) degrees for full 10 seconds 6a. Left Leg: No drift; leg holds 30-degree position for full 5 seconds 6b. Right Leg: No drift; leg holds 30-degree position for full 5 seconds 7. Limb Ataxia: Absent 8. Sensory: Normal; no sensory loss 9. Best Language: No aphasia; normal 10. Dysarthria: Normal 11. Extinction and Inattention: No abnormality Total: 0 Physical Exam Neuro Neuro Narrative: Neurological examination: General: The patient appears nutritionally appropriate, well-groomed, and appears comfortable in no acute distress. Mental Status: The patient?s mental status was normal including orientation. Language was intact. Cranial nerves: Visual rodriguez full, extra-ocular motion was intact. Face motion symmetric. Bilateral shoulder shrug was intact. Tongue was midline with normal movement. There was no dysarthria. Motor: Normal strength in all four extremities. No pronator drift. Sensation: Intact light touch bilaterally, no extinction. Coordination: Bilateral finger to nose was normal. There was no dysmetria. Gait: deferred. NIHSS-0 Lab / Micro Data 10/10/23 03:24 10/10/23 03:24 Labs: Laboratory Results - last 24 hr 10/10/23 03:24: WBC 6.9, RBC 4.69, Hgb 13.5, Hct 41.9, MCV 89.3, MCH 28.8, MCHC 32.2, RDW Std Deviation 45.0 H, RDW Coeff of Van 14.0, Plt Count 218, MPV 10.8, Immature Gran % (Auto) 0.400, Neut % (Auto) 62.8, Lymph % (Auto) 25.9, Dodge % (Auto) 7.3, Eos % (Auto) 2.9, Baso % (Auto) 0.7, Absolute Neuts (auto) 4.3, Absolute Lymphs (auto) 1.78, Nucleated RBC % 0, PT 11.8, INR 0.9, APTT 27.4, Sodium 144, Potassium 3.6, Chloride 107, Carbon Dioxide 31.0, Anion Gap 6, BUN 11, Creatinine 0.77, Estim Creat Clear Calc 37.26, Est GFR (MDRD) Af Amer 93, Est GFR (MDRD) Non-Af 77, BUN/Creatinine Ratio 14.2, Glucose 120 H, Calcium 8.6, Troponin I High Sens 20, TSH 0.51 10/10/23 03:28: POC Glucose 138 H 10/10/23 06:20: Ethyl Alcohol < 3.0 Rhythm Strip Rhythm Strip: Sinus Rhythm Rate: 70 Ectopy: None Imagaing Radiology Impression Head/Neck CTA 10/10/23 03:22 IMPRESSION: undefined Chest X-Ray 10/10/23 03:40 IMPRESSION: 1.6 cm pulmonary nodule in the right upper lobe. Malignancy is not excluded. Nonemergent chest CT follow-up is recommended. Electronically Signed: August Wang MD at 5:19 EST , Brain MRI 10/10/23 06:15 IMPRESSION: No evidence for acute infarct. Chronic involutional and white matter changes. Electronically Signed: Betty Vang MD at 11:46 EST , Echocardiogram 10/10/23 06:15 Interpretation Summary Moderate concentric left ventricular hypertrophy. The left ventricular ejection fraction is 70 %. Diastolic function is indeterminate. The left atrium is mildly enlarged. Bubble contrast study is negative for PFO/ASD. Severe mitral annular calcification. Mild (1+) mitral valve insufficiency. Moderate to severe tricuspid valve insufficiency. Right ventricular systolic pressure estimated to be 55 mmHg. Severe calcification of the noncoronary cusp of the aortic valve. Mild (1+) aortic valve insufficiency. Ordering Physician: Kavon Whitt Referring Physician: KEITH MARTI Performed By: Vita Womack RDCS Active Medications Active Medications Active Medications: Current Medications Generic Name Dose Route Start Last Admin Trade Name Freq PRN Reason Stop Dose Admin Acetaminophen 650 mg 10/10/23 07:58 10/10/23 10:27 Acetaminophen 325 Mg Tablet PO 650 mg Q4H PRN PRN Administration Pain 1-10 Or Fever>99.6 Aspirin 81 mg 10/10/23 10:00 Aspirin E.C. 81 Mg Tablet PO DAILY [facility] Atorvastatin Calcium 40 mg 10/10/23 10:00 Atorvastatin Calcium 40 Mg Tablet PO DAILY [facility] Clopidogrel Bisulfate 75 mg 10/10/23 10:00 Clopidogrel Bisulfate 75 Mg Tablet PO DAILY [facility] Ergocalciferol 1.25 mg 10/13/23 10:00 Ergocalciferol 1.25 Mg (50, 000 Unit) Capsule PO QWEEK [facility] Ferrous Sulfate 650 mg 10/10/23 10:00 [facility] 5 mg 10/10/23 07:58 Hydralazine 20 Mg/Ml Vial IV Q30M PRN to maintain BP goals Sodium Chloride 250 mls @ 15 mls/hr 10/10/23 09:43 IV .[id number] PRN Additional IVPB Infusion Sodium Chloride 250 mls @ 15 mls/hr 10/10/23 09:43 IV .[id number] PRN Saline Flush Levothyroxine Sodium 100 mcg 10/11/23 06:00 Levothyroxine 100 Mcg Tablet PO [email or web address] [facility] Levothyroxine Sodium 88 mcg 10/10/23 10:00 Levothyroxine 88 Mcg Tablet PO [email or web address] [facility] Pantoprazole Sodium 20 mg 10/10/23 10:00 Pantoprazole Sodium 20 Mg Tablet PO DAILY [facility] Sodium Chloride 10 - 40 ml 10/10/23 09:43 10/10/23 12:06 0.9% Saline Lock 10 Ml Syringe IV 10 ml UD PRN Administration SALINE FLUSH Tolterodine Tartrate 2 mg 10/10/23 10:00 Tolterodine Tartrate 2 Mg Cap.Sa PO DAILY [facility]
[2023-10-10] MEDS: Levothyroxine 88 MCG Tablet PO (12:53)
[2023-10-10] MEDS: Aspirin E.C. 81 MG Tablet PO (14:36)
[2023-10-10] MEDS: Atorvastatin Calcium 40 MG Tablet PO (14:36)
[2023-10-10] MEDS: Clopidogrel Bisulfate 75 MG Tablet PO (14:36)
[2023-10-10] MEDS: Pantoprazole Sodium 20 MG Tablet PO (14:36)
[2023-10-10] MEDS: Tolterodine Tartrate 2 MG CAP.SA PO (14:36)
[2023-10-10] MEDS: Ferrous Sulfate 325 MG Tablet 650 MG PO (14:36)
[2023-10-10] MEDS: proMETHazine 25 MG Tablet PO (14:36)
--- NOTE | 2023-10-10 15:13 | CHAPLAIN ---
Type of Pastoral Visit ___ Initial Visit ___ Follow-up Visit ___ On-call Visit ___ General Patient Visit ___ Spiritual Assessment ___ Family Conference ___ Bereavement ___ Rapid Response ___ Code Blue ___ Other (describe below) Pastoral Care Referral From ___ Patient ___ Family ___ Nurse ___ Physician ___ Encapsulator ___ Bench Precision Assembler ___ Other (describe below) Sacrament/Intervention ___ Active listening ___ Anointing ___ Hinduism ___ Bereavement ___ Communion ___ Grecia exploration ___ ___ Life review ___ Prayer ___ Reconciliation ___ Sacrament of Sick ___ Supportive presence ___ Wedding ___ Other (describe below) Pastoral Comments patient was having a procedure done at time of the attempted visit
--- NOTE | 2023-10-10 16:03 | PCM.DC.SUM ---
Providers Date of Admission: 10/10/23 Primary Care Physician: Dr. Keith Marti, DO Consultations 10/10/23 07:58 Consult: Tele-Neurology Routine Consulting Provider: [facility] Reason for Consult: Acute Ischemic Stroke/TIA EMERGENT Consult: No MD Notified: Yes Date Notified: 10/10/23 Time Notified: 08:36 Method of Notification: Answering Service Method of Consult:: Telemedicine Nursing Unit Staff Notify [facility] of Tele-Neurology Consult: Yes Reason For Visit: TIA VERSUS CVA Diagnosis Discharge Diagnosis (1) Brain TIA: Status: Acute Code(s): G45.9 - Transient cerebral ischemic attack, unspecified (2) Headache: Status: Acute Code(s): R51.9 - Headache, unspecified Qualifiers: Headache type: unspecified Headache chronicity pattern: acute headache Intractability: not intractable Qualified Code(s): R51.9 - Headache, unspecified (3) Dysequilibrium: Status: Acute Code(s): R42 - Dizziness and giddiness Medications at Discharge Home Medications amlodipine 10 mg tablet 10 mg PO DAILY blood pressure 10/10/23 apixaban 5 mg tablet 5 mg PO BID #60 tabs 10/10/23 aspirin 81 mg tablet,delayed release 81 mg PO DAILY heart health 10/10/23 atenolol 25 mg tablet 25 mg PO DAILY blood pressure 10/10/23 atorvastatin 40 mg tablet 40 mg PO DAILY cholesterol 10/10/23 ergocalciferol (vitamin D2) 1,250 mcg (50,000 unit) capsule 50,000 unit PO QWEEK supplement 10/10/23 ferrous sulfate 325 mg (65 mg iron) tablet 650 mg PO DAILY supplement 10/10/23 levothyroxine 100 mcg tablet 100 mcg PO MOWEFR thryoid 10/10/23 levothyroxine 88 mcg tablet 88 mcg PO SUTUTHSA thyroid 10/10/23 omeprazole 20 mg capsule,delayed release 20 mg PO DAILY stomach 10/10/23 oxybutynin chloride 10 mg tablet,extended release 24 hr 10 mg PO DAILY bladder 10/10/23 Hospital Course Summary of Care Provided Minutes Spent on Discharge: 35 Hospital Course: Patient is a 77-year-old lady who presented with transient loss of left-sided vision disequilibrium with some confusion as well as headache 1. Ischemic attack ? MRI of the brain was negative this was thought to be secondary to cardioembolism given her history of atrial fibrillation Case was discussed with telemetry neuro from [facility] recommendation was made to discharge patient on apixaban as well as aspirin with discontinuation of Plavix 2. Carotid artery stenosis ? With previous carotid artery endarterectomy 3. Hypertension - Blood pressure controlled, home medications continued with dose adjustment as needed 4. Dyslipidemia -Patient is on statin therapy, continued at home dose 5. Paroxysmal A-fib ? Patient was started on apixaban on discharge 6. Coronary artery disease ? With previous history of CABG with subsequent stent placement. Patient is on guideline directed medical therapy 7. History of multinodular goiter ? Status post thyroidectomy currently on supplement therapy with levothyroxine 8. Anemia - Secondary to chronic disorder monitoring H&H and transfuse if patient becomes symptomatic or hemoglobin falls below 7 9. GERD ? Remains stable at this point Physical Exam Narrative GENERAL: cooperative HEENT: Atraumatic; normocephalic EYES; Anicteric, Normal Conjunctiva NECK; supple, normal thyroid, RESPIRATORY: Diminished to auscultation CARDIOVASCULAR: Regular S1 S2, GI: soft, normoactive bowel sounds, : No Renal angle tenderness; EXTREMITIES: No edema, no clubbing, MUSCULOSKELETAL: no muscle wasting NEURO: Awake; no lateralizing signs. SKIN: No Rash PSYCH; Flat affect Weight / BMI Weight Weight: 74.4 kg Body Mass Index (BMI) 29.9 ABG / Lab / Microbiology Data 10/10/23 03:24 10/10/23 03:24 Laboratory: Laboratory Results - last 24 hr 10/10/23 03:24: WBC 6.9, RBC 4.69, Hgb 13.5, Hct 41.9, MCV 89.3, MCH 28.8, MCHC 32.2, RDW Std Deviation 45.0 H, RDW Coeff of Van 14.0, Plt Count 218, MPV 10.8, Immature Gran % (Auto) 0.400, Neut % (Auto) 62.8, Lymph % (Auto) 25.9, Buchanan % (Auto) 7.3, Eos % (Auto) 2.9, Baso % (Auto) 0.7, Absolute Neuts (auto) 4.3, Absolute Lymphs (auto) 1.78, Nucleated RBC % 0, PT 11.8, INR 0.9, APTT 27.4, Sodium 144, Potassium 3.6, Chloride 107, Carbon Dioxide 31.0, Anion Gap 6, BUN 11, Creatinine 0.77, Estim Creat Clear Calc 37.26, Est GFR (MDRD) Af Amer 93, Est GFR (MDRD) Non-Af 77, BUN/Creatinine Ratio 14.2, Glucose 120 H, Calcium 8.6, Troponin I High Sens 20, TSH 0.51 10/10/23 03:28: POC Glucose 138 H 10/10/23 06:20: Ethyl Alcohol < 3.0 Radiography Diagnostic Testing: Radiology Impression Head/Neck CTA 10/10/23 03:22 IMPRESSION: undefined Chest X-Ray 10/10/23 03:40 IMPRESSION: 1.6 cm pulmonary nodule in the right upper lobe. Malignancy is not excluded. Nonemergent chest CT follow-up is recommended. Electronically Signed: August Wang MD at 5:19 EST , Brain MRI 10/10/23 06:15 IMPRESSION: No evidence for acute infarct. Chronic involutional and white matter changes. Electronically Signed: Betty Vang MD at 11:46 EST , Echocardiogram 10/10/23 06:15 Interpretation Summary Moderate concentric left ventricular hypertrophy. The left ventricular ejection fraction is 70 %. Diastolic function is indeterminate. The left atrium is mildly enlarged. Bubble contrast study is negative for PFO/ASD. Severe mitral annular calcification. Mild (1+) mitral valve insufficiency. Moderate to severe tricuspid valve insufficiency. Right ventricular systolic pressure estimated to be 55 mmHg. Severe calcification of the noncoronary cusp of the aortic valve. Mild (1+) aortic valve insufficiency. Ordering Physician: Kavon Whitt Referring Physician: KEITH MARTI Performed By: Vita Womack RDCS Chest CT 10/10/23 11:12 IMPRESSION: 2.2 x 1.6 x 1.6 and meter right upper lobe pulmonary nodule concerning for malignancy, recommend tissue sampling or PET/CT for further evaluation. Prominence of the right hilar region which may be secondary to lymphadenopathy. Cardiomegaly. Atherosclerosis. Electronically Signed: Kayla Miner MD at 15:49 EST , D/C Instructions Discharge Diet: Low fat / Low cholesterol Discharge Activity: Return to Normal Activity Call your doctor if you observe: Fever of 101 or Higher, Shortness of breath, Fainting spells and Chest pain Meaningful Use Info Meaningful Use Diagnoses (Choose all that apply): None applicable Discharge Plan Admission Admit Date/Time: 10/10/23 06:08 Attending Provider: Kavon Freedman Primary Care Provider: Keith Marti Consulting Providers: Kavon Whitt; Robin Morrison; Ivy Coe; Nelia Mccormack; Gracie Chavis; Shalonda Shah; Mich Gamez; Nereyda Marti; Jimenez Guo; Art Guo; Nini Deutsch; Ashkan Pantoja; Alena Madrid; Yusef Hinson; Hazel Henry; Tani Dunbar; Al Saba; Fabián Manning; Vannessa Ang; Earnest Ferrara Discharge Orders/Prescriptions Prescriptions: New apixaban 5 mg tablet 5 mg PO BID Qty: 60 0RF Continued atenolol 25 mg tablet 25 mg PO DAILY Patient Comments: TAKE 1 TABLET BY MOUTH EVERY DAY ferrous sulfate 325 mg (65 mg iron) tablet 650 mg PO DAILY Patient Comments: TAKE 1 TABLET BY MOUTH TWICE A DAY TAKE WITH VITAMIN C omeprazole 20 mg capsule,delayed release(DR/EC) 20 mg PO DAILY Patient Comments: TAKE 1 CAPSULE BY MOUTH EVERY DAY amlodipine 10 mg tablet 10 mg PO DAILY Patient Comments: TAKE 1 TABLET BY MOUTH EVERY DAY IN THE MORNING atorvastatin 40 mg tablet 40 mg PO DAILY Patient Comments: TAKE 1 TABLET BY MOUTH EVERY DAY oxybutynin chloride 10 mg tablet extended release 24hr 10 mg PO DAILY Patient Comments: TAKE 1 TABLET BY MOUTH EVERY DAY ergocalciferol (vitamin D2) 1,250 mcg (50,000 unit) capsule 50,000 unit PO QWEEK Patient Comments: TAKE 1 CAPSULE BY MOUTH ON THURSDAYS levothyroxine 100 mcg tablet 100 mcg PO Patient Comments: TAKE 1 TABLET ON MONDAYS, WEDNESDAYS, AND FRIDAYS, ALTERNATE WITH 88 MCG ON OTHER DAY levothyroxine 88 mcg tablet 88 mcg PO Patient Comments: PLEASE SEE ATTACHED FOR DETAILED DIRECTIONS aspirin 81 mg tablet,delayed release (DR/EC) 81 mg PO DAILY Patient Comments: TAKE 1 TABLET BY MOUTH EVERY DAY Discontinued clopidogrel 75 mg tablet 75 mg PO DAILY Patient Comments: TAKE 1 TABLET BY MOUTH EVERY DAY Referrals / Follow Up: Keith Marti DO [Primary Care Provider] - Within 2 Weeks [facility],Out of [Non-Staff] - Disposition Disposition (needs filled in before D/C Order can be placed): Home, Self Care
--- NOTE | 2023-10-10 16:30 | CASEMGMT ---
EVELINA MURRELL updated that patient is discharging today. EVELINA MURRELL updated by nursing that patient is appropriate for HHC vs outpatient therapy. EVELINA MURRELL in to discuss with patient and . would like outpatient therapy and will schudule appointment. and patient denied further needs. EVELINA MURRELL received script and provided in discharge paperwork along with [place] therapy information.
[2023-10-10] MEDS: hydrALAZINE 20 MG/ML Vial IV (16:58)
--- NOTE | 2023-10-10 19:00 | CT_ITS ---
We are attempting to reach an attending provider to discuss findings. An addendum with communication details will be sent when the communication is complete. INDICATION: STROKE EXAMINATION: CT BRAIN - CT Head Stroke Protocol W/O Contrast Injection TECHNIQUE: Multiple axial images were obtained of the head without intravenous contrast. A radiation dose optimization technique was used for this scan. IV Contrast dosage and agent: None. COMPARISON: CT brain 10/10/2023 at 0336 hours a.m. FINDINGS: BRAIN PARENCHYMA: No intra- or extra-axial hemorrhage. No evidence of acute infarct. No intracranial mass or mass effect. There is scattered decreased attenuation within the deep white matter compatible with microangiopathic disease. Posterior fossa structures are unremarkable. CSF SPACES: Appropriate for age. No hydrocephalus. Basal cisterns are patent. CALVARIUM, SKULL BASE, PARANASAL SINUSES AND MASTOID AIR CELLS: Clear. No discrete lytic or blastic abnormalities. ORBITS: Both globes, extraocular muscles, optic nerves and retrobulbar fat appear unremarkable. CT/STROKE Brain/Head without Cont IMPRESSION: Nonspecific microangiopathic white matter changes. No acute intracranial hemorrhage or space-occupying lesion. Electronically Signed: Andressa Leal MD at 19:14 EST ,
--- NOTE | 2023-10-10 19:04 | CT_ITS ---
We are attempting to reach an attending provider to discuss findings. An addendum with communication details will be sent when the communication is complete. STUDY: CTA HEAD AND NECK WITH CONTRAST REASON FOR EXAM: Female, 77 years old. STROKE RADIATION DOSAGE (If Supplied By Facility): CTDIvol = ( 10.31 ) mGy, DLP = ( 630.78 ) mGycm TECHNIQUE: CT angiography was performed with a multi-detector CT scanner. Data acquisition was obtained from the skull base through the vertex following intravenous administration of IV 100mL [id number]-[id number]. MIP images were reconstructed from the axial data set. Post-processing of the angiographic images was performed, with multiplanar reformation and 3D reconstruction. Individualized dose optimization techniques were used for this CT. COMPARISON: No relevant priors. FINDINGS: Normal bilateral petrous carotid arteries. There is calcified plaque formation of the right cavernous carotid artery, without a cross-sectional luminal stenosis. There is calcified plaque formation of the left cavernous carotid artery, without a cross-sectional luminal stenosis. Normal right A1 segments of the anterior cerebral artery. Normal left A1 segments of the anterior cerebral artery. Normal intact anterior communicating artery (ACOM). Normal bilateral A2 segments of the anterior cerebral arteries. Normal right M1 and M2 segments of the middle cerebral arteries, with a normal M1 bifurcation. Normal left M1 and M2 segments of the middle cerebral arteries, with a normal M1 bifurcation. There is non-visualization of the right posterior communicating artery (PCOM). There is a persistent origin of the left posterior cerebral artery with absence of the posterior communicating artery (PCOM). Normal bilateral vertebral arteries. Normal basilar artery with a normal basilar bifurcation. The visualized bilateral superior cerebellar (SCA) arteries are normal. Normal bilateral P1, P2 and visualized P3 segments of the posterior cerebral arteries. There is no demonstrated aneurysm of the [place]. There is no demonstrated abnormality of the visualized brain. AORTIC ARCH: Redemonstrated is a right apical lung nodule measuring 1.8 cm with mild peripheral spiculations described in detail in CT chest 24. There is atherosclerotic calcific plaque formation of the aortic arch and great vessels arising from the aortic arch, without a hemodynamically significant stenosis. There is a normal origin of the brachiocephalic, left common carotid, and left subclavian arteries. RIGHT CAROTID ARTERIES: Normal right common carotid artery (CCA). There is mild atherosclerotic plaque formation with minimal narrowing of the right carotid bulb. There is mild atherosclerotic plaque formation of the origin of the right internal carotid artery with no stenosis. Normal visualized cervical portion of the right internal carotid artery. Normal origin of the right external carotid artery (ECA). LEFT CAROTID ARTERIES: Minimal scattered calcified plaques with the left common carotid artery. Mild to moderate calcified plaque at the left carotid bulb. There is mild atherosclerotic plaque formation of the origin of the left internal carotid artery with less than 50% cross sectional diameter stenosis. Normal visualized cervical portion of the left internal carotid artery. There is mild atherosclerotic plaque formation of the origin of the left external carotid artery with less than 50% cross sectional diameter stenosis. Incidental note is made of significantly dilated right jugular vein. VERTEBRAL ARTERIES: Normal bilateral vertebral arteries. CT/STROKE CTA Head AND Neck W/Con IMPRESSION: CTA neck: No significant stenosis, occlusion or dissection involving the bilateral carotid and vertebral arteries. CT brain: Mild atherosclerotic disease through the cavernous portion of bilateral internal carotid arteries otherwise no significant stenosis, occlusion or aneurysm involving the [place]. Electronically Signed: Andressa Leal MD at 19:36 EST ,
--- NOTE | 2023-10-10 19:12 | NURSING ---
Stroke alert called on patient. [facility] stroke line called at [phone].
[2023-10-10 19:14] LABS: Bedside Glucose 117 mg/dL (74-106)
--- NOTE | 2023-10-10 19:39 | PCM.HOSP.N ---
Hospitalist Note Responded to stroke call for patient at 650. With last known well at 640, Patient and went from an age of 1 to an NIH of 13 with left-sided upper and lower deficits and left visual field deficit. CT and CTA performed and did not show LVO, bleed, other acute process but patient had persistent deficits and was reevaluated by neurology for stroke call, it was recommended she receive TNK and order set placed. Given difficulties with staffing and bed status it was unclear if patient could be safely maintained at our facility for the duration of the TNK protocol and it was advised that we try to transfer patient to [facility], discussed with [facility] stroke neurologist who is agreeable for transfer. Discussed with patient's family and updated them as well on current plan status. Patient received TNK and be transferred to [facility].
[2023-10-10] MEDS: TENECTEPLASE 2678.40000000000009 MG IV (20:09)
--- NOTE | 2023-10-10 20:13 | DS.PCM_ITS ---
Providers Date of Admission: 10/10/23 Date of Discharge: 10/10/23 Primary Care Physician: Dr. Keith Marti, DO Consultations 10/10/23 07:58 Consult: Tele-Neurology Routine Consulting Provider: [facility] Reason for Consult: Acute Ischemic Stroke/TIA EMERGENT Consult: No MD Notified: Yes Date Notified: 10/10/23 Time Notified: 08:36 Method of Notification: Answering Service Method of Consult:: Telemedicine Nursing Unit Staff Notify [facility] of Tele-Neurology Consult: Yes 10/10/23 19:40 Consult: Tele-Neurology Routine Consulting Provider: [facility] Reason for Consult: stroke for thrombolytic EMERGENT Consult: No MD Notified: Yes Date Notified: 10/10/23 Time Notified: 19:40 Method of Notification: Verbal Comments:: Seen as stroke call, recommended TNK Nursing Unit Staff Notify [facility] of Tele-Neurology Consult: Yes Reason For Visit: TIA VERSUS CVA Diagnosis Discharge Diagnosis (1) CVA (cerebral vascular accident): Status: Acute Code(s): I63.9 - Cerebral infarction, unspecified (2) Brain TIA: Status: Acute Code(s): G45.9 - Transient cerebral ischemic attack, unspecified (3) Headache: Status: Acute Code(s): R51.9 - Headache, unspecified Qualifiers: Headache type: unspecified Headache chronicity pattern: acute headache Intractability: not intractable Qualified Code(s): R51.9 - Headache, unspecified (4) Dysequilibrium: Status: Acute Code(s): R42 - Dizziness and giddiness Plan #CVA w/ TNK administration #CABG # Hypothyroidism # A-fib Medications at Discharge Home Medications amlodipine 10 mg tablet 10 mg PO DAILY blood pressure 10/10/23 apixaban 5 mg tablet 5 mg PO BID #60 tabs 10/10/23 aspirin 81 mg tablet,delayed release 81 mg PO DAILY heart health 10/10/23 atenolol 25 mg tablet 25 mg PO DAILY blood pressure 10/10/23 atorvastatin 40 mg tablet 40 mg PO DAILY cholesterol 10/10/23 ergocalciferol (vitamin D2) 1,250 mcg (50,000 unit) capsule 50,000 unit PO QWEEK supplement 10/10/23 ferrous sulfate 325 mg (65 mg iron) tablet 650 mg PO DAILY supplement 10/10/23 levothyroxine 100 mcg tablet 100 mcg PO MOWEFR thryoid 10/10/23 levothyroxine 88 mcg tablet 88 mcg PO SUTUTHSA thyroid 10/10/23 omeprazole 20 mg capsule,delayed release 20 mg PO DAILY stomach 10/10/23 oxybutynin chloride 10 mg tablet,extended release 24 hr 10 mg PO DAILY bladder 10/10/23 Hospital Course Summary of Care Provided Minutes Spent on Discharge: 60 Hospital Course: HPI: CORNELIO VERMA, is a 77 right-handed female with a past medical history of essential hypertension, hyperlipidemia, overweight; with a BMI of 28.3 this admission, history of CAD; s/p CABG with subsequent stent placed last year still on BASA and Plavix, history of Atrial Fibrillation, history of TIA, history of multinodular goiter; status post thyroidectomy on chronic Synthroid, history of coronary artery disease; status post stents on chronic baby aspirin and Plavix, history of carotid stenosis; status post endarterectomy, iron-deficiency anemia, overactive bladder, GERD and OA who presents to [facility] ER complaining of severe Left eye pain, headache, disequilibrium and confusion. Mrs. Verma has a vague recollection of recent events, but thankfully her was at the bedside to augment the history as he was a direct eyewitness. According to him her symptoms began abruptly around 19:00 hours on the evening of October 09, 2023 with the sudden-onset of a headache that was present across her entire forehead while she was resting. She then developed a sharp pain behind her Left eye that was ~9/10 and excruciating with a significant decrease in her Left-sided visual rodriguez along with a Left facial droop and numbness in h er Left hand that lasted about 30 minutes before it virtually resolved. Her then noticed her having trouble with her balance while she was fumbling with the sink along with significant confusion with the patient not able to follow commands or understand him though she denies any trouble speaking or understanding others. She is not currently anticoagulated and she denies similar previous symptoms. She is still having a mild headache with faint residual pain behind her Left eye with her blood pressure persistently elevated in the ~170 mm Hg systolic range suspicious for TIA/CVA. She denies associated fever, chills, nausea, vomiting, diarrhea or constipation. She was then admitted to the CDU under observation status for a TIA/CVA workup for a stay that is expected to be less than 48 hours. INTERVAL HISTORY: Patient had negative CT and MRI and it was felt after reevaluation by neurology that she had a TIA, she also previously had history of A-fib but was taken off of Coumadin in the past due to bleeding problems. She was on aspirin and Plavix and it was recommended aspirin and Eliquis be initiated reasonable. Plan was to discharge patient on Eliquis and aspirin but Eliquis and yet to be initiated as patient was set to leave in the evening. Unfortunately patient's clinical status changed. Responded to stroke call for patient at 650. With last known well at 640, Patient and went from an age of 1 to an NIH of 13 with left-sided upper and lower deficits and left visual field deficit. CT and CTA performed and did not show LVO, bleed, other acute process but patient had persistent deficits and was reevaluated by neurology for stroke call, it was recommended she receive TNK and order set placed. Given difficulties with staffing and bed status it was unclear if patient could be safely maintained at our facility for the duration of the TNK protocol and it was advised that we try to transfer [facility], discussed with [facility] stroke neurologist who is agreeable for transfer. Discussed with patient's family and updated them as well on current plan status. Patient received TNK and be transferred to [facility]. Physical Exam Narrative NIH 13 Weight / BMI Weight Weight: 74.4 kg Body Mass Index (BMI) 29.9 ABG / Lab / Microbiology Data 10/10/23 03:24 10/10/23 03:24 Laboratory: Laboratory Results - last 24 hr 10/10/23 03:24: WBC 6.9, RBC 4.69, Hgb 13.5, Hct 41.9, MCV 89.3, MCH 28.8, MCHC 32.2, RDW Std Deviation 45.0 H, RDW Coeff of Van 14.0, Plt Count 218, MPV 10.8, Immature Gran % (Auto) 0.400, Neut % (Auto) 62.8, Lymph % (Auto) 25.9, Caroline % (Auto) 7.3, Eos % (Auto) 2.9, Baso % (Auto) 0.7, Absolute Neuts (auto) 4.3, Absolute Lymphs (auto) 1.78, Nucleated RBC % 0, PT 11.8, INR 0.9, APTT 27.4, Sodium 144, Potassium 3.6, Chloride 107, Carbon Dioxide 31.0, Anion Gap 6, BUN 11, Creatinine 0.77, Estim Creat Clear Calc 37.26, Est GFR (MDRD) Af Amer 93, Est GFR (MDRD) Non-Af 77, BUN/Creatinine Ratio 14.2, Glucose 120 H, Calcium 8.6, Troponin I High Sens 20, TSH 0.51 10/10/23 03:28: POC Glucose 138 H 10/10/23 06:20: Ethyl Alcohol < 3.0 10/10/23 18:54: POC Glucose 117 H Radiography Diagnostic Testing: Radiology Impression Head/Neck CTA 10/10/23 03:22 IMPRESSION: undefined Chest X-Ray 10/10/23 03:40 IMPRESSION: 1.6 cm pulmonary nodule in the right upper lobe. Malignancy is not excluded. Nonemergent chest CT follow-up is recommended. Electronically Signed: August Wang MD at 5:19 EST , Brain MRI 10/10/23 06:15 IMPRESSION: No evidence for acute infarct. Chronic involutional and white matter changes. Electronically Signed: Betty Vang MD at 11:46 EST , Carotid Duplex 10/10/23 06:15 Interpretation Summary Mild (<50%) stenosis right extracranial internal carotid. Moderate (50-69%) stenosis left extracranial internal carotid. Patent and antegrade vertebrals bilaterally. Ordering Physician: Kavon Whitt Performed By: Oscar Fuentes, T Echocardiogram 10/10/23 06:15 Interpretation Summary Moderate concentric left ventricular hypertrophy. The left ventricular ejection fraction is 70 %. Diastolic function is indeterminate. The left atrium is mildly enlarged. Bubble contrast study is negative for PFO/ASD. Severe mitral annular calcification. Mild (1+) mitral valve insufficiency. Moderate to severe tricuspid valve insufficiency. Right ventricular systolic pressure estimated to be 55 mmHg. Severe calcification of the noncoronary cusp of the aortic valve. Mild (1+) aortic valve insufficiency. Ordering Physician: Kavon Whitt Referring Physician: KEITH MARTI Performed By: Vita Womack RDCS Chest CT 10/10/23 11:12 IMPRESSION: 2.2 x 1.6 x 1.6 and meter right upper lobe pulmonary nodule concerning for malignancy, recommend tissue sampling or PET/CT for further evaluation. Prominence of the right hilar region which may be secondary to lymphadenopathy. Cardiomegaly. Atherosclerosis. Electronically Signed: Kayla Miner MD at 15:49 EST , Brain CT 10/10/23 19:00 IMPRESSION: Nonspecific microangiopathic white matter changes. No acute intracranial hemorrhage or space-occupying lesion. Electronically Signed: Andressa Leal MD at 19:14 EST , ADDENDUM: 10/10/231941 IMPRESSION: Nonspecific microangiopathic white matter changes. No acute intracranial hemorrhage or space-occupying lesion. N.B. : The above Results were Read Back by Andressa Leal MD to Hope Marie MD, and understanding confirmed on 10/10/2023 19:36:07 (ET). Electronically Signed: Andressa Leal MD at 19:14 EST Reading Location ID and State: [email or web address] [facility] [employer] , Service support , Head/Neck CTA 10/10/23 19:04 IMPRESSION: CTA neck: No significant stenosis, occlusion or dissection involving the bilateral carotid and vertebral arteries. CT brain: Mild atherosclerotic disease through the cavernous portion of bilateral internal carotid arteries otherwise no significant stenosis, occlusion or aneurysm involving the [place]. Electronically Signed: Andressa Leal MD at 19:36 EST Reading Location ID and State: [email or web address] [facility] [employer] , Service support , ADDENDUM: 10/10/231943 IMPRESSION: CTA neck: No significant stenosis, occlusion or dissection involving the bilateral carotid and vertebral arteries. CT brain: Mild atherosclerotic disease through the cavernous portion of bilateral internal carotid arteries otherwise no significant stenosis, occlusion or aneurysm involving the [place]. N.B. : The above Results were Read Back by Andressa Leal MD to Hope Marie MD, and understanding confirmed on 10/10/2023 19:38:19 (ET). Electronically Signed: Andressa Leal MD at 19:36 EST , D/C Instructions Discharge Diet: Low fat / Low cholesterol Call your doctor if you observe: Fever of 101 or Higher, Shortness of breath, Fainting spells and Chest pain Meaningful Use Info Meaningful Use Diagnoses (Choose all that apply): Ischemic CVA CVA Therapy Assessed for PT,OT and/or ST?: Yes Ischemic Stroke Antithrombotic order at d/c?: Yes Dx of Atrial fib/flutter?: Yes Anticoagulant at discharge?: Yes Statins at discharge?: Yes Primary Dx Acute Ischemic CVA?: Yes Discharge Plan Admission Admit Date/Time: 10/10/23 06:08 Attending Provider: Kavon Freedman Primary Care Provider: Keith Marti Consulting Providers: Kavon Whitt; Robin Morrison; Ivy Coe; Nelia Mccormack; Gracie Chavis; Shalonda Shah; Mich Gamez; Nereyda Marti; Jimenez Guo; Art Guo; Nini Deutsch; Ashkan Pantoja; Alena Madrid; Yusef Hinson; Hazel Henry; Tani Dunbar; Al Saab; Soni Manning; Vannessa Ang; Earnest Ferrara Discharge Orders/Prescriptions Prescriptions: New apixaban 5 mg tablet 5 mg PO BID Qty: 60 0RF Continued atenolol 25 mg tablet 25 mg PO DAILY Patient Comments: TAKE 1 TABLET BY MOUTH EVERY DAY ferrous sulfate 325 mg (65 mg iron) tablet 650 mg PO DAILY Patient Comments: TAKE 1 TABLET BY MOUTH TWICE A DAY TAKE WITH VITAMIN C omeprazole 20 mg capsule,delayed release(DR/EC) 20 mg PO DAILY Patient Comments: TAKE 1 CAPSULE BY MOUTH EVERY DAY amlodipine 10 mg tablet 10 mg PO DAILY Patient Comments: TAKE 1 TABLET BY MOUTH EVERY DAY IN THE MORNING atorvastatin 40 mg tablet 40 mg PO DAILY Patient Comments: TAKE 1 TABLET BY MOUTH EVERY DAY oxybutynin chloride 10 mg tablet extended release 24hr 10 mg PO DAILY Patient Comments: TAKE 1 TABLET BY MOUTH EVERY DAY ergocalciferol (vitamin D2) 1,250 mcg (50,000 unit) capsule 50,000 unit PO QWEEK Patient Comments: TAKE 1 CAPSULE BY MOUTH ON THURSDAYS levothyroxine 100 mcg tablet 100 mcg PO Patient Comments: TAKE 1 TABLET ON MONDAYS, WEDNESDAYS, AND FRIDAYS, ALTERNATE WITH 88 MCG ON OTHER DAY levothyroxine 88 mcg tablet 88 mcg PO [facility] Patient Comments: PLEASE SEE ATTACHED FOR DETAILED DIRECTIONS aspirin 81 mg tablet,delayed release (DR/EC) 81 mg PO DAILY Patient Comments: TAKE 1 TABLET BY MOUTH EVERY DAY Discontinued clopidogrel 75 mg tablet 75 mg PO DAILY Patient Comments: TAKE 1 TABLET BY MOUTH EVERY DAY Referrals / Follow Up: Keith Marti DO [Primary Care Provider] - 10/17/23 1:30 am [facility] Doctor,Out of [Non-Staff] - Disposition Disposition (needs filled in before D/C Order can be placed): Home, Self Care
--- NOTE | 2023-10-10 20:26 | NURSING ---
1950-pt transported to ICU [address] Bedside report given to Oliver. NIHSS preformed. 2016-Update provided to family, informed that ASSOCIATE DIRECTOR QA would be out to speak with them. Family voiced appreciation for care provided by nursing.
--- NOTE | 2023-10-10 20:40 | NURSING ---
1840-This RN into room to speak with pt and about discharge. Both had vocalized concerns with being discharged home with pt having 9/10 headache. Informed them that this RN had informed Dr Freedman of their concern. Educated both and pt that they had to right to refuse discharge and that CM/SW could help with contesting discharge. Offered to provide a few minutes for them to discuss privately. and stated they would 'just got home'. Pt was laying in bed A&Ox3 during this conversation. Education on stroke signs/symptoms provided verbally and written, when to call 911. Pt and verbalized understanding. 0-This RN back into room with A Muna RN, pt noted to have complete mentation change. NIHSS preformed, stroke alert called.
== END 2023-10-10 21:15 | disposition short-term general hospital (02) ==
LOC: ED 06:02 → PCU 06:17 → ICU 10-11 11:47
PROVIDERS: Admitting Provider Internal Medicine; Emergency Provider Emergency Medicine; PCP Family Medicine; Visit Provider Internal Medicine
DX: I63.9 Cerebral infarction, unspecified (principal); I48.0 Paroxysmal atrial fibrillation; I25.10 Atherosclerotic heart disease of native coronary artery without angina pectoris; E89.0 Postprocedural hypothyroidism; Z79.891 Long term (current) use of opiate analgesic; E78.5 Hyperlipidemia, unspecified; I10 Essential (primary) hypertension; Z95.1 Presence of aortocoronary bypass graft; Z95.5 Presence of coronary angioplasty implant and graft; D63.8 Anemia in other chronic diseases classified elsewhere; K21.9 Gastro-esophageal reflux disease without esophagitis; Z79.899 Other long term (current) drug therapy; Z79.890 Hormone replacement therapy; Z79.82 Long term (current) use of aspirin; R20.0 Anesthesia of skin; H54.7 Unspecified visual loss; R29.713 NIHSS score 13
CPT/HCPCS: 51702; 70450; 70496; 70498; 70551; 71045; 71250; 80048; 80320; 82962; 84443; 84484; 85025; 85610; 85730; 93005; 93306; 93880; 96374; 96375; 97162; 97167; 97802; 99221; 99284; J3101; Q9967; A4216; G0378; G0480; J2405

== ENCOUNTER 2024-02-05 11:23 | Outpatient (CLI) | payer MEDICARE, OTHER, SELFPAY ==
[2024-02-05 11:51] VITALS: BP 119/51; PULSE 74; RESP 16; TEMP 36; O2SAT 97; BMI 30.3
[2024-02-05 12:18] VITALS: BP 118/53; PULSE 75; RESP 16; TEMP 36.2; O2SAT 96
[2024-02-05 13:25] VITALS: BP 126/55; PULSE 77; RESP 16; TEMP 36.4; O2SAT 95
[2024-02-05 13:57] VITALS: BP 118/57; PULSE 78; RESP 16; TEMP 36.3
== END 2024-02-05 11:24 | disposition home or self-care (01) ==
LOC: MEDOUTP 11:23
PROVIDERS: PCP Family Medicine; Referring Provider Internal Medicine Hematology & Oncology; Visit Provider Internal Medicine Hematology & Oncology
DX: D64.81 Anemia due to antineoplastic chemotherapy (principal)
CPT/HCPCS: 36430; 86850; 86900; 86901; 86920; 86921; 86922; J7040; P9016; A4216

== ENCOUNTER 2024-02-26 08:48 | Outpatient (CLI) | payer MEDICARE, OTHER, SELFPAY ==
[2024-02-26 08:59] VITALS: BP 123/53; PULSE 80; RESP 16; TEMP 35.6; O2SAT 98
[2024-02-26 09:40] VITALS: BP 126/76; PULSE 77; RESP 16; TEMP 36.4; O2SAT 96
[2024-02-26 10:40] VITALS: BP 124/79; PULSE 74; RESP 16; TEMP 36.2; O2SAT 99
[2024-02-26 11:31] VITALS: BP 109/56; PULSE 78; RESP 16; TEMP 35.8; O2SAT 96
[2024-02-26 12:50] VITALS: BP 124/64; PULSE 76; RESP 16; TEMP 35.8; O2SAT 98
[2024-02-26 13:06] VITALS: BP 100/63; PULSE 78; RESP 16; TEMP 35.9; O2SAT 98
== END 2024-02-26 23:59 | disposition home or self-care (01) ==
LOC: MEDOUTP 08:49
PROVIDERS: PCP Family Medicine; Referring Provider Internal Medicine Hematology & Oncology; Visit Provider Internal Medicine Hematology & Oncology
DX: Z51.89 Encounter for other specified aftercare (principal); D64.81 Anemia due to antineoplastic chemotherapy
CPT/HCPCS: 36430; 86850; 86900; 86901; 86920; 86922; J7040; P9016; A4216

== ENCOUNTER 2024-03-04 08:24 | Outpatient (CLI) | payer MEDICARE, OTHER, SELFPAY ==
[2024-03-04] VITALS (7 sets, daily range): BP systolic 114–135; BP diastolic 54–69; PULSE 73–85; RESP 14–16; TEMP 36–36.9; O2SAT 95–100
[2024-03-04] MEDS: 0.9% NaCl VAD Flush IV (09:15)
== END 2024-03-04 23:59 | disposition home or self-care (01) ==
LOC: MEDOUTP 08:24
PROVIDERS: PCP Family Medicine; Referring Provider Specialist; Visit Provider Specialist
DX: D64.81 Anemia due to antineoplastic chemotherapy (principal)
CPT/HCPCS: 96374; 36430; 86850; 86900; 86901; 86920; 86922; 86965; J7040; P9016; P9035; A4216

== ENCOUNTER 2024-03-27 09:19 | Outpatient (CLI) | payer MEDICARE, OTHER, SELFPAY ==
[2024-03-27 09:45] VITALS: BP 109/51; PULSE 71; RESP 16; TEMP 36.2; O2SAT 96; BMI 29.4
[2024-03-27] MEDS: 0.9% NaCl Peripheral Flush Adult/Peds IV (10:03)
[2024-03-27] MEDS: 0.9% Normal Saline (500mL Bag) 500 ML 15 ML IV (10:03)
[2024-03-27 10:33] VITALS: BP 104/52; PULSE 73; RESP 16; TEMP 35.9; O2SAT 96
[2024-03-27 11:33] VITALS: BP 112/48; PULSE 78; RESP 16; TEMP 35.8; O2SAT 94
[2024-03-27 12:16] VITALS: BP 115/52; PULSE 77; RESP 16; TEMP 35.8; O2SAT 93
== END 2024-03-27 23:59 | disposition home or self-care (01) ==
LOC: MEDOUTP 09:20
PROVIDERS: PCP Family Medicine; Visit Provider Internal Medicine Hematology & Oncology
DX: Z51.89 Encounter for other specified aftercare (principal)
CPT/HCPCS: 96360; 96361; 36430; 86850; 86900; 86901; 86920; 86922; J7040; P9016; A4216

== ENCOUNTER 2024-04-01 08:46 | Outpatient (CLI) | payer MEDICARE, OTHER, SELFPAY ==
[2024-04-01 09:05] VITALS: BP 125/61; PULSE 77; RESP 16; TEMP 36; O2SAT 95; BMI 29.4
[2024-04-01 09:31] VITALS: BP 115/52; PULSE 67; RESP 16; TEMP 36.2
[2024-04-01 10:31] VITALS: BP 112/55; PULSE 72; RESP 16; TEMP 36.5; O2SAT 95
[2024-04-01] MEDS: 0.9% NaCl Peripheral Flush Adult/Peds IV (11:18)
[2024-04-01] MEDS: 0.9% Normal Saline (500mL Bag) 500 ML 15 ML IV (11:19)
== END 2024-04-01 23:59 | disposition home or self-care (01) ==
LOC: MEDOUTP 08:46
PROVIDERS: PCP Family Medicine; Referring Provider Internal Medicine Hematology & Oncology; Visit Provider Internal Medicine Hematology & Oncology
DX: D64.81 Anemia due to antineoplastic chemotherapy (principal)
CPT/HCPCS: 36430; 86850; 86900; 86901; 86920; 86922; J7040; P9016; A4216

== ENCOUNTER 2024-07-08 12:13 | Inpatient (IN) | payer MEDICARE, OTHER, SELFPAY ==
[2024-07-08] VITALS (7 sets, daily range): BP systolic 138–148; BP diastolic 54–70; PULSE 65–99; RESP 16–25; TEMP 36.2–36.6; O2SAT 92–98; BMI 29.1; BMI 27.0
--- NOTE | 2024-07-08 13:36 | ED.RN ---
PT WITH HISTORY OF SMALL CELL LUNG CANCER, LAST CHEMO IN MARCH, LAST RADIATION IN APRIL 2024. SINCE SATURDAY PT HAS HAD DECREASED ORAL INTAKE AND INCREASED WEAKNESS AND FATIGUE. PT STATES I'M JUST NOT HUNGRY...I TAKE A BITE OF FOOD AND IT JUST FEELS LIKE I COULD THROW IT UP FAMILY STATES PATIENT SEEMS MORE CONFUSED THAN NORMAL AND IS SOMEWHAT SLOW TO RESPOND. PT STATES SHE HAS PAIN IN THE LEFT GROIN AND THIGH WHICH MAKES IT HARD TO WALK. DENIES INJURY.
[2024-07-08 13:42] LABS: Absolute Lymphocyte Count 0.94 X10^3/uL (0.83-4.51); Absolute Neutrophil Count 2.2 X10^3/uL (2.0-7.7); Basophil# 0.02 X10^3/uL; Basophil% 0.6 % (0-1); Eosinophils% 2.8 % (0-5); Lymphocyte # 0.94 X10^3/ul (0.83-4.51); Lymphocyte % 26.6 % (19-41); Mean Corp Hgb Conc 32.4 g/dL (32-36); Mean Corpuscular Hgb 30.7 pg (27.0-32.0); Mean Corpuscular Volume 94.6 fL (81-99); Mean Platelet Vol. 10.3 fl (6.2-12.0); Monocyte# 0.32 X10^3/uL; NRBC Flagged by Analyzer 0 % (0-5); Neutrophil # 2.15 X10^3/uL (2.7-7.7); Neutrophil % 60.7 % (47-70); Platelet Count 216 K/mm3 (150-450); RBC Distribution Width CV 15.1 % (11.6-14.6); RBC Distribution Width SD 52.3 fl (35.1-43.9); Red Blood Count 3.91 M/mm3 (4.2-5.4); White Blood Count 3.5 K/mm3 (4.4-11.0)
[2024-07-08 14:02] LABS: ALB/GLOB Ratio 1.6 RATIO (0.9-2.4); AST(SGOT) 12 U/L (15-37); Alanine Aminotransfer ALT/SGPT 10 U/L (13-56); Albumin, Serum 3.8 g/dL (3.2-5.0); Alkaline Phosphatase 74 U/L (45-117); Anion Gap 5 (5-15); BUN 18 mg/dL (7-18); BUN/Creat Ratio 16.1 RATIO (10-20); Calcium,Total 9.4 mg/dL (8.5-10.1); Chloride 107 mmol/L (98-107); Creatinine, Serum 1.12 mg/dL (0.55-1.02); EST Glomerular Filtration Rate 50 mL/min (>60); Est Glom Filt Rate - Afr Amer 60 mL/min (>60); Globulin 2.4 g/dL (2.2-4.2); Glucose 106 mg/dL (74-106); Potassium 3.1 mmol/L (3.5-5.1); Protein, Total 6.2 g/dL (6.4-8.2); Sodium Level 143 mmol/L (136-145)
--- NOTE | 2024-07-08 14:12 | CT_ITS ---
STUDY: CT BRAIN WITHOUT CONTRAST REASON FOR EXAM: Female, 78 years old. Weakness RADIATION DOSAGE (If Supplied By Facility): CTDIvol = ( 47.06 ) mGy, DLP = ( 855.03 ) mGycm TECHNIQUE: Transaxial CT imaging of the brain was performed without administration of intravenous contrast material. Individualized dose optimization techniques were used for this CT. COMPARISON: Comparison is made with prior study October 10, 2003. FINDINGS: Normal soft tissue structures. Normal calvarium. There is mild cerebral atrophy with widening of the extra-axial spaces and ventricular dilatation. There are areas of decreased attenuation within the white matter tracts of the supratentorial brain, consistent with microvascular disease changes. There are small punctate calcifications of the basal ganglia which are seen in the aging brain as a normal variant. Normal brainstem. Normal cerebellum. There is no intracranial hemorrhage. There are no findings of an acute ischemic infarction. Atherosclerotic calcification of the cavernous portions of the internal carotid arteries bilaterally. Small mucosal polyp or retention cyst at the base of the left maxillary sinus. CT/Brain/Head without Contrast IMPRESSION: Chronic involutional changes of the brain. Electronically Signed: Solomon Martin MD at 14:49 EDT ,
--- NOTE | 2024-07-08 14:12 | EKG12_ITS ---
Test Reason : Blood Pressure : / mmHG Vent. Rate : 066 BPM Atrial Rate : 066 BPM P-R Int : 190 ms QRS Dur : 126 ms QT Int : 496 ms P-R-T Axes : 023 -30 017 degrees QTc Int : 519 ms Normal sinus rhythm Left axis deviation Left bundle branch block Abnormal ECG Confirmed by NAS HUTCHINSON, LI ([id number]), editor index ALLISON MEAD ([id number]) on 07/10/2024 11:42:09 AM Referred By: Deloris Reilly Confirmed By:LI LOVELL MD
[2024-07-08] MEDS: 0.9% Normal Saline (1000mL) 1,000 ML 100 ML IV (14:20)
--- NOTE | 2024-07-08 14:44 | RAD_ITS ---
STUDY: X-RAY CHEST REASON FOR EXAM: Female, 78 years old. cough, weakness, lung Ca TECHNIQUE: AP and lateral views of the chest. COMPARISON: Comparison is made with prior study dated October 10, 2023. FINDINGS: EKG electrodes are seen. The lungs are clear and expanded. The previously seen nodular density in the right upper lobe is not well seen at this time. There is no demonstrated pleural abnormality. Sternal cerclage wires and vascular clips are present from a prior sternotomy and coronary artery bypass graft procedure (CABG). Coronary artery calcification. Normal mediastinum and lázaro. Normal visualized pulmonary arteries. Normal visualized aortic arch and descending thoracic aorta. There is demineralization of the osseous structures. Status post bilateral shoulder replacement. There is no demonstrated abnormality of the visualized soft tissue structures of the upper abdomen. RAD/Chest PA and Lateral IMPRESSION: The lungs are clear. The previously seen nodule in the right upper lobe is not well seen at this time. No acute abnormality is seen. Electronically Signed: Solomon Martin MD at 15:00 EDT ,
--- NOTE | 2024-07-08 15:29 | HP.PCM.HOS_ITS ---
HPI - General General Date of Admission: 07/08/24 Date of Service: 07/08/24 Chief Complaint: Acute on chronic debility HPI Narrative CORNELIO VERMA, is a 78 F who presented to [facility] ED on 07/08/2024 with worsening debility. Patient was diagnosed with small cell lung cancer in December of this year. Follows with Dr. Parehk. Saw Dr. Parekh in the office yesterday and I reviewed his office note in [facility]. 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 PET scan showed no metastatic disease. She completed carboplatin and etoposide chemotherapy in March. She then completed approximately 40 sessions of radiation therapy to the chest and 10 sessions of whole brain radiation therapy by the end of April. She did well with both chemotherapy and radiation. However, since ending therapy she has had progressively worsening debility. She has lost 20 pounds since beginning of April. Family notes that she has had very minimal appetite over the past few weeks especially. She has hardly been able to get out of bed. She tried using a 4 point walker recently for the first time but was still unsteady on her feet with this. She reported having difficulty with swallowing some foods and a sensation of gagging. Also reported that her taste sensation has been different recently. Family has had difficulty caring for her at home so they brought her to the ED today for further evaluation. Patient afebrile and hemodynamically stable on room air. Labs notable for mild creatinine elevation at 1.12 and potassium of 3.1. UA notable for 500 leukocyte esterase, negative nitrites, 3+ bacteria. Chest x-ray showed clear lung rodriguez, previously seen right upper lobe nodule now not able to be identified. CT brain showed no acute changes. Given her worsening weakness and debility, hospice was contacted for admission. I saw the patient at bedside in the ED, patient's , daughter and son were present. Patient was moderately fatigued appearing and dry appearing on exam. She was sitting up in bed comfortably and answering questions with short appropriate responses, was in no acute distress. She generally appeared weak and debilitated. She noted the decreased appetite and swallowing difficulty again to me as she had to Dr. Parekh. Also noted that foods do not taste right to her anymore. She denies any chest pain or shortness of breath on exertion. Denies any abdominal pain or discomfort. Has been having fairly normal bowel movements. No other acute concerns at this time. 1) Limited stage small cell carcinoma. HPI: The patient is a 78-year-old female former smoker (quit smoking 1984; approximate [id number] history prior) with a PMH significant for CAD (four-vessel bypass), atrial fibrillation (on apixaban), osteoporosis, GERD, hypertension, hypothyroidism and recent stroke ([facility] 10/10/2023 for left facial droop and left hand numbness. Received thrombolytic therapy with resolution of symptoms). Following her stroke, she was transferred to [facility]. Imaging there suggested right upper lobe nodule. She was advised to follow-up on this after discharge. CT chest done 11/19/2023 at [facility] demonstrated 2 irregular right upper lobe lesions both concerning for malignancy. There was also an enlarged right hilar lymph node. In the right upper lobe 1 mass measured 2.3 cm and an additional irregular shaped lesion in the posterior right upper lobe measured 0.6 x 2.4 cm. The right hilar lymph node was noted to measure 2.3 cm in short axis. No other adenopathy was noted. Fatty infiltration of the liver was suspected. There was a small low-density lesion in the right hepatic lobe measuring approximately 7 mm but was too small to characterize. Underwent bronchoscopy/EBUS . Biopsy 4R and washing of airway. No endobronchial lesions. Pathology: -4R--small cell carcinoma. -Cytology of airway washings positive for small cell carcinoma. PET scan 12/18/2023 demonstrated no evidence of metastatic disease. There was a multilobulated growth in the renal pelvis of the left kidney that was [id number]. Per initial OV: She feels well in general. Denies musculoskeletal pain. Has bilateral knee and bilateral shoulder replacements. Has a difficult time with stairs because of that. Has had episodic shortness of breath but infrequently has cough. No wheezing. Denies chest pain. No exertional chest pain. Denies palpitations and sensations of tachycardia. This with her in [place]. Has 4 children. Two of whom (son Ryan and daughter Geeta) were present at today's visit. Previous therapy: 1) Carbo/etoposide. 2) RT starting cycle #2. 3) PCI completed 05/06/2024. Presents for ongoing oncologic management. Interim history: Weight down 6 more pounds since last here. She is down a total of 20 pounds from the beginning of April. Family really noticed a drop in appetite over the last week or 2. Feels like when she swallows a lot of foods make her want a gag. No reflux. Bowels have been moving. No abdominal pain. Family notes that she is more confused especially when tired. ASSESSMENT/PLAN: (C33, C34.80) Cancer of trachea, bronchus, and lung (HCC) (primary encounter diagnosis) Assessment: -The patient is a 78-year-old female with a past medical history outlined above who was diagnosed with a limited stage (IIIA) small cell carcinoma of the right upper lobe. -History of atrial fibrillation and previous stroke in October of this year. -Started radiation concurrently with cycle #2. -CTs now indicate stable disease. Perhaps minimal decrease in the right upper lobe nodule. -Continue close surveillance with CTs every 3 months for the first 2 years. MRI every 6 months. -Failure to thrive. -Discussed plan as outlined below. Plan: -Check TSH, T4 and vitamin D today. -Rx olanzapine 2.5 mg at at bedtime. Can increase to 5 mg if well-tolerated after 2 or 3 nights. -MRI brain if above does not help although I discussed with the family that her symptoms I believe are secondary to PCI. -May benefit from very low-dose stimulant. -Otherwise repeat CTs in about 3 months. [facility] Medical History Small cell lung cancer GERD (gastroesophageal reflux disease) Hypothyroid HTN (hypertension) CAD (coronary artery disease) Home Medications ?Medication ?Instructions ?Recorded ?Last Taken ?Type amlodipine 10 mg tablet 10 mg PO DAILY blood pressure 10/10/23 Unknown History aspirin 81 mg tablet,delayed 81 mg PO DAILY heart health 10/10/23 Unknown History release atenolol 25 mg tablet 25 mg PO DAILY blood pressure 10/10/23 Unknown History atorvastatin 40 mg tablet 40 mg PO DAILY cholesterol 10/10/23 Unknown History ergocalciferol (vitamin D2) 1,250 50,000 unit PO QWEEK supplement 10/10/23 Unknown History mcg (50,000 unit) capsule levothyroxine 100 mcg tablet 100 mcg PO MOWEFR thryoid 10/10/23 Unknown History levothyroxine 88 mcg tablet 88 mcg PO SUTUTHSA thyroid 10/10/23 Unknown History omeprazole 20 mg capsule,delayed 20 mg PO DAILY stomach 10/10/23 Unknown History release hydrochlorothiazide 12.5 mg capsule 12.5 mg PO DAILY 02/05/24 Unknown History losartan 100 mg tablet (Cozaar) 100 mg PO DAILY 02/05/24 Unknown History potassium chloride 10 mEq 10 meq PO DAILY 02/05/24 Unknown History tablet,extended release (Klor-Con) rivaroxaban 20 mg tablet (Xarelto) 20 mg PO QPM 07/08/24 Unknown History Allergy/AdvReac Type Severity Reaction Status Date / Time meperidine (From Demerol) Allergy Vomiting Verified 07/08/24 12:14 morphine Allergy Vomiting Verified 07/08/24 12:14 Surgical History H/O heart artery stent Hx of CABG Social History household members: spouse housing: house Smoking Status: Never smoker ROS Constitutional Constitutional: Reports fatigue and weakness; Denies chills or fever(s) Eyes Eyes: Denies change in vision Cardiovascular Cardiovascular: Denies chest pain, dyspnea on exertion, edema, lightheadedness, palpitations or rapid heart rate Respiratory/Chest Respiratory/Chest: Denies cough, shortness of breath at rest or wheezing Gastrointestinal Gastrointestinal: Denies abdominal pain, constipation, diarrhea, dyspepsia, nausea or vomiting Genitourinary Genitourinary: Denies dysuria, urinary frequency or urinary urgency Musculoskeletal Musculoskeletal: Denies arthralgias, back pain or myalgias Neurologic Neurologic: Denies dizziness, focal weakness or headache(s) Vital Signs Vital Signs Vital Signs: 07/08/24 12:14 07/08/24 13:35 07/08/24 14:13 Temperature 97.5 F L Temperature Source Temporal Pulse Rate 68 99 Respiratory Rate 16 22 H Respiratory Effort Normal Respiratory Pattern Normal Blood Pressure 148/62 H 139/68 H Blood Pressure Mean 90 91 Pulse Ox 98 95 Oxygen Delivery Method Room Air Room Air Weight Weight: 72.2 kg Body Mass Index (BMI) 29.1 Physical Exam Const alert, oriented x3 and no apparent distress Constitutional Narrative: Elderly female, overweight, somewhat pale and moderately fatigued appearing, generally weak appearing, otherwise sitting up comfortably in bed, answering questions with short appropriate responses, in no acute distress. General Appearance: cooperative and comfortable HEENT normocephalic, head/scalp atraumatic, hearing grossly normal bilaterally and nasal mucous membranes and turbinates normal HEENT Narrative: Dry mucous membranes. Eyes PERRL, EOMs intact bilaterally and conjunctivae normal Neck full ROM Chest inspection of chest normal Resp normal respiratory effort, normal air movement, no use of accessory muscles and clear to auscultation bilaterally Cardio regular rate, regular rhythm, no murmurs and peripheral pulses 2+ throughout GI normal to inspection, nondistended, normoactive bowel sounds, soft to palpation, non-tender and non-distended Back/Spine normal ROM Extremity normal to inspection and no pedal edema Skin no rashes or lesions noted Neuro moves all extremities and no focal motor deficits Speech: speech normal Psych mental status grossly normal Psych Narrative: Flat affect. Results Lab / Micro Data 07/08/24 13:29 07/08/24 13:29 Labs: Laboratory Results - last 24 hr 07/08/24 13:29: WBC 3.5 L, RBC 3.91 L, Hgb 12.0, Hct 37.0, MCV 94.6, MCH 30.7, MCHC 32.4, RDW Std Deviation 52.3 H, RDW Coeff of Van 15.1 H, Plt Count 216, MPV 10.3, Immature Gran % (Auto) 0.300, Neut % (Auto) 60.7, Lymph % (Auto) 26.6, [place] % (Auto) 9.0, Eos % (Auto) 2.8, Baso % (Auto) 0.6, Absolute Neuts (auto) 2.2, Absolute Lymphs (auto) 0.94, Nucleated RBC % 0, Sodium 143, Potassium 3.1 L , Chloride 107, Carbon Dioxide 31.0, Anion Gap 5, BUN 18, Creatinine 1.12 H, Est GFR (MDRD) Af Amer 60, Est GFR (MDRD) Non-Af 50 L, BUN/Creatinine Ratio 16.1, Glucose 106, Calcium 9.4, Total Bilirubin 0.70, AST 12 L, ALT 10 L, Alkaline Phosphatase 74, Total Protein 6.2 L, Albumin 3.8, Globulin 2.4, Albumin/Globulin Ratio 1.6 Imaging Radiology Impression Brain CT 07/08/24 14:12 IMPRESSION: Chronic involutional changes of the brain. Electronically Signed: Solomon Martin MD at 14:49 EDT , Chest X-Ray 07/08/24 14:44 IMPRESSION: The lungs are clear. The previously seen nodule in the right upper lobe is not well seen at this time. No acute abnormality is seen. Electronically Signed: Solomon Martin MD at 15:00 EDT , Assessment & Plan Assessment/Plan (1) Weakness: (2) Acute UTI: (3) MAGALI (acute kidney injury): (4) Hypokalemia: PLAN: Plan Patient is a 78-year-old female who presented [facility] ED on 07/08/2024 with worsening generalized weakness. 1. Acute on chronic debility ? Admit under observation status to [facility]. PT/OT/case management consulted. Seems primarily failure to thrive in setting of recent chemoradiation treatment for lung cancer with other underlying comorbidities noted below. Will evaluate for possible dysphagia as noted below. Acute cystitis could be playing a small role. TSH, T4 and vitamin D ordered. Patient notably lives with and has 4 children who live in the area. Has never been to a SNF before but patient and family would be open to this. 2. Small cell lung cancer ? Follows with Dr. Parekh. See HPI for further history. Completed chemoradiation therapy at the end of April. Chest x-ray on admit showed essentially complete resolution of right upper lobe nodules. No oncology inpatient needs, continue close outpatient follow-up. 3. Concern for acute cystitis ? UA showed 500 leukocyte esterase, negative nitrites, 3+ bacteria. Patient denied any UTI symptoms. Given concern that a UTI could be contributing to her debility as noted above, will empirically treat with ceftriaxone for now. Urine culture pending. No significant history of UTIs, no prior urine culture results available. 4. Mild MAGALI ? Creatinine 1.12 on admit, baseline appears to be around 0.7. Suspect mild prerenal MAGALI due to poor p.o. intake. Supplemental fluids given in the ED and will run low-dose maintenance fluids through tomorrow morning. Follow-up a.m. BMP and monitor urine output. 5. Hypokalemia ? Potassium 3.1 on admit. Mag and Phos normal. Suspect due to poor p.o. intake. Replete as needed. 6. Concern for dysphagia ? Speech therapy consulted. Patient reports difficulty with swallowing some foods and notes that they feel like they are getting stuck in her upper esophagus. Notably did have radiation therapy to the chest for her lung cancer recently. Will keep patient on clear liquid diet for now. Chronic medical conditions: ? History of CAD s/p CABG, hypertension, hyperlipidemia, history of TIA, history of carotid stenosis s/p carotid endarterectomy: Stable. Continue home aspirin, statin, and amlodipine. Will hold home losartan and hydrochlorothiazide for now given mild MAGALI, resume when able. ? History of multinodular goiter s/p thyroidectomy: TSH and T4 ordered. Continue home Synthroid. ? Paroxysmal A-fib: In normal sinus rhythm on admit. Continue home atenolol and Xarelto. ? GERD: Stable, no recent symptoms noted. Continue home PPI. DVT prophylaxis: Not indicated, on Xarelto CODE STATUS: Full code, verified. Confirmed with patient and family on admission. Expected disposition: TBD Total clinical time spent by myself addressing the patient's medical issues, reviewing all the data, and collaborating with patient's care team: 75 minutes. Charges/Coding Visit Charges Inpatient E&M: 19163 Init Hosp L3
[2024-07-08 15:54] LABS: Mucous, Urine 0 SEEN /hpf (<or=2+)
[2024-07-08 15:56] LABS: Color, Urine Yellow (Yellow); Glucose, Dipstick Normal (Normal); Ketone-Dipstick 15 mg/dl (Negative); Leukocyte Esterase-Dipstick 500 /ul (Negative); Nitrite-Dipstick Negative (Negative); Occult Blood-Urine 10 /ul (Negative); Protein-Dipstick 15 mg/dl (Negative); Specific Gravity, Urine 1.015 (1.002-1.030); Urine Bilirubin Dipstick Negative (Negative); Urine Clarity Sl. Cloudy (Clear); Urine Urobilinogen Normal (Normal)
[2024-07-08 16:05] LABS: Squamous Epithelial Cells - UA 0-5 SEEN /hpf (5-10); White Blood Cells 50-100 SEEN /hpf (0-5)
--- NOTE | 2024-07-08 16:05 | NURSING ---
MED SURG OBS MOSTELLER WEAKNESS, DEHYDRATION
[2024-07-08 16:06] LABS: Bacteria 3+ /hpf (None Seen); Red Blood Cells-Urine 0-5 SEEN /hpf (0-5); Renal Epithelial Cells 0-5 SEEN /hpf (0-5); Transitional Epithelial - Ur 0-5 SEEN /hpf (0-5)
[2024-07-08 16:08] LABS: Magnesium 1.7 mg/dL (1.6-2.6); Phosphorus 4.2 mg/dL (2.5-4.9)
--- NOTE | 2024-07-08 16:22 | EDS_ITS ---
HPI History of Present Illness Chief Complaint: Weakness Informant: patient Narrative Narrative: Patient 78-year-old female with history of small cell lung cancer (previously underwent chemotherapy and radiation this summer), GERD, hypothyroid, hypertension and coronary artery disease status post CABG and heart stents presenting with generalized weakness. He states for the past few days she has been too weak to even walk. She has had this progressive weakness for the past month or so. She has that she has been having some intermittent headache for the past 4 weeks. She has not really been eating or drinking anything. She states nothing tastes good. Denies any associated chest pain, difficulty breathing, nausea or vomiting. Follows with Dr. Parekh for oncology. Does not report any recent falls. No other complaints or concerns reported at this time. As with the family and at this time does not feel safe at home because she is so weak. [facility] Medical History Small cell lung cancer GERD (gastroesophageal reflux disease) Hypothyroid HTN (hypertension) CAD (coronary artery disease) Home Medications ?Medication ?Instructions ?Recorded ?Last Taken ?Type amlodipine 10 mg tablet 10 mg PO DAILY blood pressure 10/10/23 Unknown History aspirin 81 mg tablet,delayed 81 mg PO DAILY heart health 10/10/23 Unknown History release atenolol 25 mg tablet 25 mg PO DAILY blood pressure 10/10/23 Unknown History atorvastatin 40 mg tablet 40 mg PO DAILY cholesterol 10/10/23 Unknown History ergocalciferol (vitamin D2) 1,250 50,000 unit PO QWEEK supplement 10/10/23 Unknown History mcg (50,000 unit) capsule levothyroxine 100 mcg tablet 100 mcg PO MOWEFR thryoid 10/10/23 Unknown History levothyroxine 88 mcg tablet 88 mcg PO SUTUTHSA thyroid 10/10/23 Unknown History omeprazole 20 mg capsule,delayed 20 mg PO DAILY stomach 10/10/23 Unknown History release hydrochlorothiazide 12.5 mg capsule 12.5 mg PO DAILY 02/05/24 Unknown History losartan 100 mg tablet (Cozaar) 100 mg PO DAILY 02/05/24 Unknown History potassium chloride 10 mEq 10 meq PO DAILY 02/05/24 Unknown History tablet,extended release (Klor-Con) rivaroxaban 20 mg tablet (Xarelto) 20 mg PO QPM 07/08/24 Unknown History Allergy/AdvReac Type Severity Reaction Status Date / Time meperidine (From Demerol) Allergy Vomiting Verified 07/08/24 12:14 morphine Allergy Vomiting Verified 07/08/24 12:14 Surgical History H/O heart artery stent Hx of CABG Social History household members: spouse housing: house Smoking Status: Never smoker ROS ROS ED Constitutional Constitutional ED: Reports other Details: Generalized weakness, anorexia ; Denies chills or fever(s) Cardiovascular Cardiovascular: Denies chest pain Respiratory/Chest Respiratory/Chest: Denies cough or dyspnea Gastrointestinal Gastrointestinal: Denies abdominal pain, nausea or vomiting Genitourinary Genitourinary ED: Reports urinary frequency Musculoskeletal Musculoskeletal: Denies arthralgias or myalgias Integumentary Denies rash Neurologic Neurologic: Reports headache(s) and weakness; Denies paresthesias Hematologic/Lymphatic Hematologic/Lymphatic: Reports easy bleeding, easy bruising and other Details: On Xarelto EXAM Physical Exam Const Vital Signs: 07/08/24 12:14 07/08/24 13:35 07/08/24 14:13 Temperature 97.5 F L Temperature Source Temporal Pulse Rate 68 99 Respiratory Rate 16 22 H Respiratory Effort Normal Respiratory Pattern Normal Blood Pressure 148/62 H 139/68 H Blood Pressure Mean 90 91 Pulse Ox 98 95 Oxygen Delivery Method Room Air Room Air 07/08/24 15:39 07/08/24 16:00 Temperature 97.9 F Temperature Source Pulse Rate 70 69 Respiratory Rate 25 H 17 Respiratory Effort Respiratory Pattern Blood Pressure 148/67 H 138/66 H Blood Pressure Mean 94 90 Pulse Ox 97 96 Oxygen Delivery Method Room Air Positive well nourished and well developed Constitutional Narrative: Generally weak General Appearance ED: well developed and NAD HEENT Reports dry mucous membranes Mouth ED: Yes dry mucous membranes Mouth: dry mucous membranes Eyes PERRL Neck supple Chest Wall inspection of chest normal and palpation of chest normal Resp normal respiratory effort and clear to auscultation bilaterally Cardio regular rate and regular rhythm GI normal to inspection, nondistended, normoactive bowel sounds GI Narrative: Mild suprapubic tenderness to palpation Palpation: Negative for guarding Back/Spine no CVA tenderness Extremity normal to inspection General Extremety ED: Negative for edema General Extremity: Negative for edema Neuro oriented x3 Sensorium / Orientation: alert Motor Exam: general weakness Psych mental status grossly normal Skin no rashes or lesions noted and no wounds MDM MDM MDM Narrative Medical decision making narrative: Patient for generalized weakness and ability to even get out of bed or walk at this point. Does have a significant medical history including lung cancer as well as cardiac disease. Vital signs normal emergency room. Clinically she appears dehydrated. Workup including CT of the brain given her profound weakness and also ensure that she does not have a new space-occupying lesion, EKG, chest x-ray, CBC and CMP as well as urinalysis obtained. Patient is given IV fluids in the ER. She denies any pain at this time. She does not have any focal neurologic deficits on exam. Her workup shows a mild leukopenia and urinalysis is consistent with infection with 50-100 white blood cells, 3+ bacteria and negative nitrites. Patient started on IV Rocephin and urine culture sent. Will be admitted for further treatment of UTI as well as her weakness. Case discussed with main physician, Dr. Mendieta. Lab Data Attestation: I reviewed the patient's lab results. Labs: Laboratory Results - last 24 hr 07/08/24 07/08/24 13:29 15:42 WBC 3.5 L RBC 3.91 L Hgb 12.0 Hct 37.0 MCV 94.6 MCH 30.7 MCHC 32.4 RDW Std Deviation 52.3 H RDW Coeff of Van 15.1 H Plt Count 216 MPV 10.3 Immature Gran % (Auto) 0.300 Neut % (Auto) 60.7 Lymph % (Auto) 26.6 [place] % (Auto) 9.0 Eos % (Auto) 2.8 Baso % (Auto) 0.6 Absolute Neuts (auto) 2.2 Absolute Lymphs (auto) 0.94 Nucleated RBC % 0 Sodium 143 Potassium 3.1 L Chloride 107 Carbon Dioxide 31.0 Anion Gap 5 BUN 18 Creatinine 1.12 H Est GFR (MDRD) Af Amer 60 Est GFR (MDRD) Non-Af 50 L BUN/Creatinine Ratio 16.1 Glucose 106 Calcium 9.4 Phosphorus 4.2 Magnesium 1.7 Total Bilirubin 0.70 AST 12 L ALT 10 L Alkaline Phosphatase 74 Total Protein 6.2 L Albumin 3.8 Globulin 2.4 Albumin/Globulin Ratio 1.6 Urine Color Yellow Urine Clarity Sl. Cloudy Urine pH 6.0 Ur Specific [place] 1.015 Urine Protein 15 H Urine Glucose (UA) Normal Urine Ketones 15 H Urine Occult Blood 10 H Urine Nitrite Negative Urine Bilirubin Negative Urine Urobilinogen Normal Ur Leukocyte Esterase 500 H Urine RBC 0-5 SEEN Urine WBC 50-100 SEEN Ur Squamous Epith Cells 0-5 SEEN Ur Transition Epith Cell 0-5 SEEN Ur Renal Epithelial Cell 0-5 SEEN Urine Bacteria 3+ Urine Mucus 0 SEEN Radiography Chest X-Ray - ED: 2 View, Read by ED Physician, Read by Radiologist and No Acute Disease Diagnostic Testing: Clinical Impression(s) from Imaging Studies Brain CT 07/08/24 14:12 IMPRESSION: Chronic involutional changes of the brain. Electronically Signed: Solomon Martin MD at 14:49 EDT , Chest X-Ray 07/08/24 14:44 IMPRESSION: The lungs are clear. The previously seen nodule in the right upper lobe is not well seen at this time. No acute abnormality is seen. Electronically Signed: Solomon Martin MD at 15:00 EDT , Rhythm Strip Rhythm Strip: Sinus Rhythm Rate: 66 Ectopy: None EKG Initial EKG: Attestation: I personally reviewed and interpreted this EKG as follows: Interpretation: Sinus Rhythm Comments: Normal sinus rhythm at a rate of 66 bpm Left axis deviation Left bundle branch block Normal ST segments Prior EKG tracings: available for review Prior: Unchanged Management Discussion w/another healthcare provider: Hospitalist Discharge Plan Triage Chief Complaint: Weakness ED Provider: Deloris Reilly Dx/Rx/DC Orders Clinical Impression: Acute UTI, Weakness Prescriptions: No Action atenolol 25 mg tablet 25 mg PO DAILY Patient Comments: TAKE 1 TABLET BY MOUTH EVERY DAY omeprazole 20 mg capsule,delayed release(DR/EC) 20 mg PO DAILY Patient Comments: TAKE 1 CAPSULE BY MOUTH EVERY DAY amlodipine 10 mg tablet 10 mg PO DAILY Patient Comments: TAKE 1 TABLET BY MOUTH EVERY DAY IN THE MORNING atorvastatin 40 mg tablet 40 mg PO DAILY Patient Comments: TAKE 1 TABLET BY MOUTH EVERY DAY ergocalciferol (vitamin D2) 1,250 mcg (50,000 unit) capsule 50,000 unit PO QWEEK Patient Comments: TAKE 1 CAPSULE BY MOUTH ON THURSDAYS levothyroxine 100 mcg tablet 100 mcg PO Patient Comments: TAKE 1 TABLET ON MONDAYS, WEDNESDAYS, AND FRIDAYS, ALTERNATE WITH 88 MCG ON OTHER DAY levothyroxine 88 mcg tablet 88 mcg PO Patient Comments: PLEASE SEE ATTACHED FOR DETAILED DIRECTIONS aspirin 81 mg tablet,delayed release (DR/EC) 81 mg PO DAILY Patient Comments: TAKE 1 TABLET BY MOUTH EVERY DAY Xarelto 20 mg tablet 20 mg PO QPM hydrochlorothiazide 12.5 mg capsule 12.5 mg PO DAILY potassium chloride [Klor-Con 10] 10 mEq tablet extended release 10 meq PO DAILY losartan [Cozaar] 100 mg tablet 100 mg PO DAILY Primary Care Provider: Ailyn Will Referrals: Ailyn Will DO [Primary Care Provider] - Print Language: Luxembourgish Disposition Disposition: Acute Care Hospital [facility]
[2024-07-08] MEDS: Ceftriaxone 1 GM/50 ML BAG IV (17:00)
[2024-07-08 17:16] LABS: T4 Free Direct 1.23 ng/dL (0.76-1.46); Thyroid Stim Hormone (TSH) 0.384 uIU/mL (0.358-3.740)
[2024-07-08] MEDS: Lactated Ringers 1,000 ML 125 ML IV (18:43)
[2024-07-08] MEDS: Atorvastatin Calcium 40 MG Tablet PO (21:16)
[2024-07-08] MEDS: Rivaroxaban 20 MG Tablet PO (21:16)
[2024-07-09 02:23] VITALS: BP 148/66; PULSE 72; RESP 16; TEMP 36.9; O2SAT 93
[2024-07-09] MEDS: 0.9% Saline Lock 10 ML Syringe IV (02:31)
[2024-07-09] MEDS: Levothyroxine 88 MCG Tablet PO (06:41)
[2024-07-09 06:52] LABS: Hematocrit 33.6 % (37-47); Hemoglobin 10.7 g/dL (12.0-15.0); Mean Corp Hgb Conc 31.8 g/dL (32-36); Mean Corpuscular Hgb 30.5 pg (27.0-32.0); Mean Corpuscular Volume 95.7 fL (81-99); Mean Platelet Vol. 10.4 fl (6.2-12.0); Platelet Count 170 K/mm3 (150-450); RBC Distribution Width CV 14.7 % (11.6-14.6); Red Blood Count 3.51 M/mm3 (4.2-5.4); White Blood Count 3.1 K/mm3 (4.4-11.0)
[2024-07-09 07:35] LABS: Anion Gap 7 (5-15); BUN 15 mg/dL (7-18); BUN/Creat Ratio 21.2 RATIO (10-20); Calcium,Total 8.5 mg/dL (8.5-10.1); Chloride 110 mmol/L (98-107); Creatinine, Serum 0.71 mg/dL (0.55-1.02); EST Glomerular Filtration Rate 85 mL/min (>60); Est Glom Filt Rate - Afr Amer 103 mL/min (>60); Estimated Creatinine Clearance 52.02 ml/min; Glucose 88 mg/dL (74-106); Potassium 2.7 mmol/L (3.5-5.1); Sodium Level 144 mmol/L (136-145)
[2024-07-09 07:52] VITALS: BP 142/68; PULSE 69; RESP 14; TEMP 36.8; O2SAT 95
[2024-07-09 08:12] VITALS: PULSE 69; RESP 14; O2SAT 95
[2024-07-09 08:24] LABS: Vitamin D,25 Hydroxy 117.9 ng/mL
[2024-07-09] MEDS: Aspirin E.C. 81 MG Tablet PO (08:29)
[2024-07-09] MEDS: amLODIPine 10 MG Tablet PO (08:30)
[2024-07-09] MEDS: Potassium Chloride Oral Tablet 10 MEQ PO (08:30)
[2024-07-09] MEDS: Cyanocobalamin 500 MCG Tablet 1000 MCG PO (08:31)
[2024-07-09] MEDS: Pantoprazole Sodium 20 MG Tablet PO (08:31)
[2024-07-09] MEDS: Atenolol 25 MG Tablet PO (08:31)
[2024-07-09] MEDS: Potassium Chloride 10mEq/100mL 10 MEQ/100 ML IV.SOLN. 100 MEQ IV BOLUS ×4 (08:50→13:14)
[2024-07-09] MEDS: Potassium Chloride Oral Soln 20 MEQ/15 ML UDC 40 MEQ PO (08:58)
--- NOTE | 2024-07-09 13:42 | PN_ITS ---
Subjective Subjective Patient seen and examined. Her [id number] was by her bedside. She had no active complaints. She was admitted with a complaint of weakness and failure to thrive in the setting of lung cancer. She denies any nausea or vomiting, fever or chills or any other complaints. She does not been able to eat or drink well at home and was brought in for possible placement. Review of systems is otherwise negative. She did have an uneventful night. Objective Data Objective Data Vital Signs: Vital Signs Temp Pulse Resp BP Pulse Ox O2 Del Method 98.3 F 69 14 142/68 H 95 Room Air 07/09/24 07:52 07/09/24 08:12 07/09/24 08:12 07/09/24 07:52 07/09/24 08:12 07/09/24 08:12 Oxygen Delivery Method Room Air Weight: 147 lb 11.355 oz Body Mass Index (BMI) 27.0 Intake & Output: Intake and Output for Last 24 Hours 07/07/24 07/08/24 07/09/24 23:59 23:59 23:59 Intake Total 488.33 / 488.33 1500 / 1500 Output Total 300 / 300 325 / 325 Balance 188.33 / 188.33 1175 / 1175 Lab / Micro Data 07/09/24 06:06 07/09/24 06:06 Labs: Laboratory Results - last 24 hr 07/08/24 13:29: WBC 3.5 L, RBC 3.91 L, Hgb 12.0, Hct 37.0, MCV 94.6, MCH 30.7, MCHC 32.4, RDW Std Deviation 52.3 H, RDW Coeff of Van 15.1 H, Plt Count 216, MPV 10.3, Immature Gran % (Auto) 0.300, Neut % (Auto) 60.7, Lymph % (Auto) 26.6, [place] % (Auto) 9.0, Eos % (Auto) 2.8, Baso % (Auto) 0.6, Absolute Neuts (auto) 2.2, Absolute Lymphs (auto) 0.94, Nucleated RBC % 0, Sodium 143, Potassium 3.1 L , Chloride 107, Carbon Dioxide 31.0, Anion Gap 5, BUN 18, Creatinine 1.12 H, Est GFR (MDRD) Af Amer 60, Est GFR (MDRD) Non-Af 50 L, BUN/Creatinine Ratio 16.1, Glucose 106, Calcium 9.4, Phosphorus 4.2, Magnesium 1.7, Total Bilirubin 0.70, A ST 12 L, ALT 10 L, Alkaline Phosphatase 74, Total Protein 6.2 L, Albumin 3.8, Globulin 2.4, Albumin/Globulin Ratio 1.6, TSH 0.384, Free T4 1.23 07/08/24 15:42: Urine Color Yellow, Urine Clarity Sl. Cloudy, Urine pH 6.0, Ur Specific Baker 1.015, Urine Protein 15 H, Urine Glucose (UA) Normal, Urine Ketones 15 H, Urine Occult Blood 10 H, Urine Nitrite Negative, Urine Bilirubin Negative, Urine Urobilinogen Normal, Ur Leukocyte Esterase 500 H, Urine RBC 0-5 SEEN, Urine WBC 50-100 SEEN, Ur Squamous Epith Cells 0-5 SEEN, Ur Transition Epith Cell 0-5 SEEN, Ur Renal Epithelial Cell 0-5 SEEN, Urine Bacteria 3+, Urine Mucus 0 SEEN 07/09/24 06:06: WBC 3.1 L, RBC 3.51 L, Hgb 10.7 L, Hct 33.6 L, MCV 95.7, MCH 30.5, MCHC 31.8 L, RDW Std Deviation 51.0 H, RDW Coeff of Van 14.7 H, Plt Count 170, MPV 10.4, Sodium 144, Potassium 2.7 L*, Chloride 110 H, Carbon Dioxide 27.0, Anion Gap 7, BUN 15, Creatinine 0.71, Estim Creat Clear Calc 52.02, Est GFR (MDRD) Af Amer 103, Est GFR (MDRD) Non-Af 85, BUN/Creatinine Ratio 21.2 H, Glucose 88, Calcium 8.5, Magnesium 1.6, Vitamin D 25-Hydroxy 117.9 Micro: Microbiology 07/08/24 14:17 Mucosa - Nose SARS-CoV-2, Influenza & RSV (PCR) - Final Radiography Diagnostic Testing: Radiology Impression Brain CT 07/08/24 14:12 IMPRESSION: Chronic involutional changes of the brain. Electronically Signed: Solomon Martin MD at 14:49 EDT , Chest X-Ray 07/08/24 14:44 IMPRESSION: The lungs are clear. The previously seen nodule in the right upper lobe is not well seen at this time. No acute abnormality is seen. Electronically Signed: Solomon Martin MD at 15:00 EDT , Rhythm Strip Rhythm Strip: Sinus Rhythm Rate: 66 Ectopy: None Physical Exam Const alert, oriented x3 and no apparent distress Constitutional Narrative: frail, weak General Appearance: cooperative HEENT normocephalic and head/scalp atraumatic HEENT Narrative: dry oral mucosa Eyes PERRL and EOMs intact bilaterally Neck no lymphadenopathy and supple Lymph Lymphatic: no lymphadenopathy noted and no lymphedema noted Resp normal respiratory effort, normal air movement and clear to auscultation bilaterally Cardio regular rate, regular rhythm, S1 normal heart sound, S2 normal heart sound and no murmurs GI normal to inspection, nondistended, normoactive bowel sounds, soft to palpation and non-tender Extremity normal capillary refill, no clubbing, cyanosis or edema and no calf tenderness General Extremity: no tenderness to palpation of joints or extremities Skin General Skin Exam: no breakdown Neuro CN's II-XII intact bilaterally and no focal motor deficits Motor Exam: general weakness Psych thought process normal and cooperative Appearance: appropriate Assessment & Plan Assessment/Plan (1) Hypokalemia: (2) Weakness: (3) Acute UTI: (4) MAGALI (acute kidney injury): PLAN: Plan #Debility with failure to thrive in the setting of small cell lung cancer * Was diagnosed with small cell lung cancer in December 2023. She follows up with [facility] oncology and PET scan showed no metastatic disease. He completed chemotherapy with carboplatin and etoposide in March and subsequently completed about 40 sessions of radiation to the chest and 10 sessions of whole brain radiotherapy out of April. * Has been getting weaker at home and unable to carry out her activities of daily living. She has had very minimal appetite and sensitive spots have changed. Family could not care for her at home. * PT OT on board. Will likely need placement. Fall precautions. * Hydrate gently with IV fluids. * CT of the brain showed no acute intracranial pathology. #UTI: Urinalysis showed evidence of UTI. Urine cultures ordered. Patient currently on IV ceftriaxone. #History of small cell lung cancer * As stated diagnosed with right upper lung small cell lung cancer in December of this year. Completed chemotherapy with etoposide and carboplatin and has had 40 cc of radiation to the chest incision and 10 sessions of whole brain radiation. * Follow-up with oncology on outpatient basis. * #MAGALI: Resolved. Creatinine has trended downwards to her baseline. Continue gentle hydration with IV fluids. Hypokalemia: Potassium was 2.7 today. Was 3.1 on admission. I will replace aggressively. #Dysphagia: * Patient has not been able to eat or drink well. * Considering the radiation she had to her chest she is at risk for radiation esophagitis. * She says she feels like the food gets stuck in her upper esophagus. Speech therapy consulted. * She will likely need a modified barium swallow and will consider GI consult based on the results of this. #History of CAD s/p CABG: On aspirin and statin as well as amlodipine. Losartan and hydrochlorothiazide were held due to the MAGALI. #Hypertension: On amlodipine. Losartan and hydrochlorothiazide held as above. Will continue with cefoxitin improves #History of multinodular goiter s/p thyroidectomy: On Synthroid. #Paroxysmal A-fib: On Xarelto and atenolol GERD: On PPI DVT prophylaxis: on xarelto. Hold xarelto for now and place on therapeutic lovenox as she may need an EGD due to dysphagia COde status: full code Charges/Coding Visit Charges Inpatient E&M: 28944 Subs Hosp L3
[2024-07-09 14:00] VITALS: BP 137/64; PULSE 71; RESP 14; TEMP 36.7; O2SAT 96
--- NOTE | 2024-07-09 14:16 | CASEMGMT ---
Met with patient to complete HANCOCK form. HANCOCK form explained to patient who voiced understanding and signed form. Original form placed in pt?s chart and copy provided to patient. Bekah Chavis, Discharge Planning Ass
--- NOTE | 2024-07-09 14:39 | CHAPLAIN ---
Type of Pastoral Visit _x__ Initial Visit ___ Follow-up Visit ___ On-call Visit ___ General Patient Visit ___ Spiritual Assessment ___ Family Conference ___ Bereavement ___ Rapid Response ___ Code Blue ___ Other (describe below) Pastoral Care Referral From _x__ Patient ___ Family ___ Nurse ___ Physician ___ Business Programmer ___ National Expansion Recruiter ___ Other (describe below) Sacrament/Intervention _x__ Active listening ___ Anointing ___ Episcopal ___ Bereavement ___ Communion _x__ Grecia exploration ___ _x__ Life review _x__ Prayer ___ Reconciliation ___ Sacrament of Sick ___ Supportive presence ___ Wedding ___ Other (describe below) Pastoral Comments patient is given time to speak of her health situation and to express concern that today her spouse is having surgery in another hospital; pt's son recently went through successful cancer treatments also; pt MINESH is in the room with her for support; pt sees herself as having blessings and that she is making it through her cancer although she needs strength and appetite for these days; pt is of the Taoism grecia and is active in her baptist; pt welcomes the support of spiritual care and prayer at this time
--- NOTE | 2024-07-09 15:45 | CASEMGMT ---
Social Work SW met with pt to discuss advance directives.? Pt confirms she has completed a living will and health care POA naming her son Ryan Brown.? Pt notified that documents are not on file at [facility] and SW requested they be brought in for scanning into the EMR.? JUDITH Flores
--- NOTE | 2024-07-09 15:46 | CASEMGMT ---
Social Work SW met with pt and dgt in law Nemo and discussed dischrage plan. Pt lives in a one story home with 2 steps to enter. Pt lives with her spouse and has been having a significant functional decline over the last few weeks. Pt's spouse had scheduled surgery today. Pt spouse does not feel like he can care for pt at this time due to new debility. A list of SNF providers including quality and resource use data and consistent with the patient?s preferred geographic region, medical needs, and insurance network were provided from the [employer] Guide. SW explained that insurance may not cover cost of SNF stay and pt may need to private pay at SNF. Pt's dgt in law will speak with pts children [facility] to discuss SNF choices and review list. ULYSSES will meet with family tomorrow to continue discharge discussion. JUDITH Polk
[2024-07-09] MEDS: Ceftriaxone 1 GM/50 ML BAG IV (15:49)
[2024-07-09] MEDS: FLU VACCINE **HIGH DOSE** TV 24-25 180 MCG/0.5 ML SYRINGE IM (15:50)
[2024-07-09 16:23] LABS: Magnesium 2.1 mg/dL (1.6-2.6)
[2024-07-09 20:05] VITALS: BP 152/72; PULSE 68; RESP 16; TEMP 37.2; O2SAT 94
[2024-07-09] MEDS: Atorvastatin Calcium 40 MG Tablet PO (20:11)
[2024-07-09] MEDS: MELATONIN 3 MG TABLET PO (20:12)
[2024-07-09] MEDS: Ensure Plus High Protein 120 ML LIQUID PO (20:12)
[2024-07-10 05:55] VITALS: BP 150/57; PULSE 67; RESP 16; TEMP 37; O2SAT 92
[2024-07-10] MEDS: Levothyroxine 100 MCG Tablet PO (06:05)
[2024-07-10] MEDS: Enoxaparin 80 MG/0.8 ML Syringe 70 MG SC (06:06)
[2024-07-10 06:36] LABS: Absolute Lymphocyte Count 0.56 X10^3/uL (0.83-4.51); Basophil# 0.01 X10^3/uL; Basophil% 0.3 % (0-1); Eosinophil# 0.04 X10^3/uL; Hematocrit 32.3 % (37-47); Hemoglobin 10.4 g/dL (12.0-15.0); Lymphocyte # 0.56 X10^3/ul (0.83-4.51); Lymphocyte % 14.4 % (19-41); Mean Corp Hgb Conc 32.2 g/dL (32-36); Mean Corpuscular Hgb 30.6 pg (27.0-32.0); Mean Platelet Vol. 10.4 fl (6.2-12.0); Monocyte# 0.26 X10^3/uL; Monocyte% 6.7 % (0-10); NRBC Flagged by Analyzer 0 % (0-5); Neutrophil % 77.1 % (47-70); POSITIVE DIFFERENTIAL YES; Platelet Count 169 K/mm3 (150-450); RBC Distribution Width CV 14.5 % (11.6-14.6); RBC Distribution Width SD 49.6 fl (35.1-43.9); White Blood Count 3.9 K/mm3 (4.4-11.0)
[2024-07-10 07:06] LABS: Anion Gap 6 (5-15); BUN 11 mg/dL (7-18); BUN/Creat Ratio 18.5 RATIO (10-20); Calcium,Total 8.7 mg/dL (8.5-10.1); Chloride 110 mmol/L (98-107); Creatinine, Serum 0.59 mg/dL (0.55-1.02); EST Glomerular Filtration Rate 104 mL/min (>60); Est Glom Filt Rate - Afr Amer 126 mL/min (>60); Estimated Creatinine Clearance 52.02 ml/min; Glucose 93 mg/dL (74-106); Potassium 3.2 mmol/L (3.5-5.1); Sodium Level 143 mmol/L (136-145)
[2024-07-10 08:25] VITALS: BP 148/67; PULSE 69; RESP 14; TEMP 36.8; O2SAT 96
[2024-07-10] MEDS: Potassium Chloride Oral Tablet 10 MEQ PO (10:06)
[2024-07-10] MEDS: Aspirin E.C. 81 MG Tablet PO (10:07)
[2024-07-10] MEDS: Atenolol 25 MG Tablet PO (10:07)
[2024-07-10] MEDS: Ferrous Sulfate 325 MG Tablet PO (10:08)
[2024-07-10] MEDS: amLODIPine 10 MG Tablet PO (10:08)
[2024-07-10] MEDS: Pantoprazole Sodium 20 MG Tablet PO (10:08)
[2024-07-10] MEDS: Cyanocobalamin 500 MCG Tablet 1000 MCG PO (10:09)
[2024-07-10] MEDS: Potassium Chloride Oral Tablet 20 MEQ 40 MEQ PO (10:36)
[2024-07-10] MEDS: Ensure Plus High Protein 120 ML LIQUID PO ×4 (10:40→21:26)
--- NOTE | 2024-07-10 11:00 | PN_ITS ---
Subjective Subjective Patient seen and examined. Her daughter was by her bedside. She had no complaints and had an uneventful night. Review of systems is otherwise negative. he has remained hemodynamically stable. Objective Data Objective Data Vital Signs: Vital Signs Temp Pulse Resp BP Pulse Ox O2 Del Method 98.3 F 69 14 148/67 H 96 Room Air 07/10/24 08:25 07/10/24 08:25 07/10/24 08:25 07/10/24 08:25 07/10/24 08:25 07/10/24 10:46 Oxygen Delivery Method Room Air Weight: 147 lb 11.355 oz Body Mass Index (BMI) 27.0 Intake & Output: Intake and Output for Last 24 Hours 07/08/24 07/09/24 07/10/24 23:59 23:59 23:59 Intake Total 488.33 / 488.33 2450 / 2450 100 / 100 Output Total 300 / 300 875 / 875 300 / 300 Balance 188.33 / 188.33 1575 / 1575 -200 / -200 Lab / Micro Data 07/10/24 05:48 07/10/24 05:48 Labs: Laboratory Results - last 24 hr 07/09/24 06:06: Magnesium 2.1 07/10/24 05:48: WBC 3.9 L, RBC 3.40 L, Hgb 10.4 L, Hct 32.3 L, MCV 95.0, MCH 30.6, MCHC 32.2, RDW Std Deviation 49.6 H, RDW Coeff of Van 14.5, Plt Count 169, MPV 10.4, Immature Gran % (Auto) 0.500, Neut % (Auto) 77.1 H, Lymph % (Auto) 14.4 L, [place] % (Auto) 6.7, Eos % (Auto) 1.0, Baso % (Auto) 0.3, Absolute Neuts (auto) 3.0, Absolute Lymphs (auto) 0.56 L, Nucleated RBC % 0, Sodium 143, P otassium 3.2 L, Chloride 110 H, Carbon Dioxide 27.0, Anion Gap 6, BUN 11, Creatinine 0.59, Estim Creat Clear Calc 52.02, Est GFR (MDRD) Af Amer 126, Est GFR (MDRD) Non-Af 104, BUN/Creatinine Ratio 18.5, Glucose 93, Calcium 8.7 Micro: Microbiology 07/08/24 15:42 Urine, Clean Catch Urine Culture - Final Mixed Gram Positive Organisms 07/08/24 14:17 Mucosa - Nose SARS-CoV-2, Influenza & RSV (PCR) - Final Rhythm Strip Rhythm Strip: Sinus Rhythm Rate: 66 Ectopy: None Physical Exam Const alert, oriented x3 and no apparent distress Constitutional Narrative: frail, weak General Appearance: cooperative and comfortable HEENT normocephalic, head/scalp atraumatic, hearing grossly normal bilaterally and nasal mucous membranes and turbinates normal HEENT Narrative: alopecia from chemotherapy Eyes PERRL, EOMs intact bilaterally and conjunctivae normal Neck full ROM, no lymphadenopathy and supple Lymph Lymphatic: no lymphadenopathy noted and no lymphedema noted Chest inspection of chest normal Resp normal respiratory effort, normal air movement, no use of accessory muscles and clear to auscultation bilaterally Cardio regular rate, regular rhythm, S1 normal heart sound, S2 normal heart sound, no murmurs and peripheral pulses 2+ throughout GI normal to inspection, nondistended, normoactive bowel sounds, soft to palpation, non-tender and non-distended Back/Spine normal ROM Extremity normal to inspection, normal capillary refill, no clubbing, cyanosis or edema, no calf tenderness and no pedal edema General Extremity: no tenderness to palpation of joints or extremities Skin no rashes or lesions noted General Skin Exam: no breakdown Neuro CN's II-XII intact bilaterally, moves all extremities and no focal motor deficits Speech: speech normal Motor Exam: general weakness Psych mental status grossly normal, thought process normal and cooperative Psych Narrative: Flat affect. Appearance: appropriate Assessment & Plan Assessment/Plan (1) Hypokalemia: (2) Weakness: (3) Acute UTI: (4) MAGALI (acute kidney injury): PLAN: Plan #Debility with failure to thrive in the setting of small cell lung cancer * Was diagnosed with small cell lung cancer in December 2023. She follows up with [facility]ology and PET scan showed no metastatic disease. He completed chemotherapy with carboplatin and etoposide in March and subsequently completed about 40 sessions of radiation to the chest and 10 sessions of whole brain radiotherapy out of April. * Has been getting weaker at home and unable to carry out her activities of daily living. She has had very minimal appetite and sensitive spots have changed. Family could not care for her at home. * PT OT on board. Will likely need placement. Fall precautions. * CT of the brain showed no acute intracranial pathology. #UTI: * Urinalysis showed evidence of UTI. * Urine culture growing mixed gram positive organisms. * Patient currently on IV ceftriaxone. * WIll switch to PO cefdinir. #History of small cell lung cancer * As stated diagnosed with right upper lung small cell lung cancer in December of this year. Completed chemotherapy with etoposide and carboplatin and has had 40 cc of radiation to the chest incision and 10 sessions of whole brain radiation. * Follow-up with oncology on outpatient basis. * #MAGALI: Resolved. Creatinine has trended downwards to her baseline. Continue gentle hydration with IV fluids. Hypokalemia:potassium is 3.2 today. Will replace orally and trend. #Dysphagia: * Patient has not been able to eat or drink well. * Considering the radiation she had to her chest she is at risk for radiation esophagitis. * she tells me today she feels her eating has improved. Speech therapy on board and diagnosed patient with mild oropharyngeal dysphagia * IF swallowing worsens, will consider GI consult to evaluate for EGD * Per speech therapy, to be on small bites and small sips as well as alternate bites and solids and sips and remains sitting upright for 30 minutes after p.o. intake. #History of CAD s/p CABG: On aspirin and statin as well as amlodipine. Losartan and hydrochlorothiazide were held due to the MAGALI. #Hypertension: * On amlodipine. * Losartan and hydrochlorothiazide held as above. * Wll resume BP meds as MAGALI has resolved and BP is trending upwards. * IV hydralazine prn. * #History of multinodular goiter s/p thyroidectomy: On Synthroid. #Paroxysmal A-fib: On Xarelto and atenolol GERD: On PPI DVT prophylaxis: resume her xarelto as her swallowing is improving. COde status: full code Charges/Coding Visit Charges Inpatient E&M: 73280 Subs Hosp L2
--- NOTE | 2024-07-10 11:11 | CASEMGMT ---
Social Work SW met with pt's spouse and dgt Tereza to discuss discharge plans. Family discussed pt situation at length and support provided by ULYSSES. Family does not feel pt can return home at this time and pt will need short term placement for rehab prior to returning home with spouse. Preferred provider is [facility]. DC assistant professor of education notified and to make referral. Pt's family to review list and come up with other options should [facility] not accept. Plan: [facility], pending acceptance JUDITH Flores
--- NOTE | 2024-07-10 11:21 | CASEMGMT ---
Addendum entered by Bekah Chavis 07/13/24 08:16: [facility] has accepted. SW updated. Bekah Chavis DC Planning Asst. Original Note: Discharge Planning Referral faxed to [facility]. Bekah Chavis DC Planning Asst.
[2024-07-10] MEDS: Ceftriaxone 1 GM/50 ML BAG IV (12:30)
--- NOTE | 2024-07-10 16:48 | CASEMGMT ---
Social Work Phone call to [facility] and still no determination on acceptance. SW updated family. If [facility] is unable to accept, next SNF choices are [facility] then [facility]. Plan: [facility], pending acceptance JUDITH Flores
[2024-07-10 17:00] VITALS: BP 137/74; PULSE 65; RESP 12; TEMP 36.8; O2SAT 94
[2024-07-10] MEDS: Rivaroxaban 20 MG Tablet PO (17:57)
[2024-07-10 21:16] VITALS: BP 149/86; PULSE 69; RESP 18; TEMP 36.8; O2SAT 96
[2024-07-10] MEDS: MELATONIN 3 MG TABLET PO (21:23)
[2024-07-10] MEDS: Mirtazapine 15 MG Tablet PO (21:23)
[2024-07-10] MEDS: Atorvastatin Calcium 40 MG Tablet PO (21:23)
[2024-07-11 05:00] VITALS: BP 149/81; PULSE 69; RESP 18; TEMP 36.7; O2SAT 97
[2024-07-11] MEDS: Levothyroxine 88 MCG Tablet PO (05:47)
[2024-07-11 07:16] LABS: Anion Gap 5 (5-15); BUN 11 mg/dL (7-18); BUN/Creat Ratio 16.2 RATIO (10-20); Calcium,Total 8.9 mg/dL (8.5-10.1); Chloride 110 mmol/L (98-107); Creatinine, Serum 0.68 mg/dL (0.55-1.02); EST Glomerular Filtration Rate 89 mL/min (>60); Est Glom Filt Rate - Afr Amer 108 mL/min (>60); Estimated Creatinine Clearance 52.02 ml/min; Glucose 103 mg/dL (74-106); Potassium 3.5 mmol/L (3.5-5.1); Sodium Level 143 mmol/L (136-145)
[2024-07-11 07:18] LABS: Absolute Lymphocyte Count 0.58 X10^3/uL (0.83-4.51); Basophil# 0.01 X10^3/uL; Basophil% 0.3 % (0-1); Eosinophil# 0.05 X10^3/uL; Eosinophils% 1.7 % (0-5); Hematocrit 34.3 % (37-47); Hemoglobin 11.1 g/dL (12.0-15.0); Lymphocyte # 0.58 X10^3/ul (0.83-4.51); Lymphocyte % 19.9 % (19-41); Mean Corp Hgb Conc 32.4 g/dL (32-36); Mean Corpuscular Hgb 30.9 pg (27.0-32.0); Mean Corpuscular Volume 95.5 fL (81-99); Mean Platelet Vol. 10.6 fl (6.2-12.0); Monocyte# 0.24 X10^3/uL; Monocyte% 8.2 % (0-10); NRBC Flagged by Analyzer 0 % (0-5); Neutrophil # 2.04 X10^3/uL (2.7-7.7); Neutrophil % 69.9 % (47-70); POSITIVE DIFFERENTIAL YES; Platelet Count 175 K/mm3 (150-450); RBC Distribution Width CV 14.6 % (11.6-14.6); RBC Distribution Width SD 50.5 fl (35.1-43.9); Red Blood Count 3.59 M/mm3 (4.2-5.4); White Blood Count 2.9 K/mm3 (4.4-11.0)
[2024-07-11 07:26] LABS: Differential Indicated SCAN CRITERIA MET
--- NOTE | 2024-07-11 08:47 | CASEMGMT ---
Addendum entered by Nemo Harrell 07/11/24 11:32: Social Work SW called [facility] again, still getting voicemail. SW will await call back, if SW does not receive a call back then pt will be here until Saturday. HITESH Smith Original Note: Social Work SW called [facility] to check on the status of pt's referral, message left to call SW back today. HITESH Smith
[2024-07-11 08:56] LABS: Differential Comment SCANNED; Ovalocyte 3+; Platelet Estimate ADEQUATE (ADEQ)
[2024-07-11 09:14] VITALS: BP 152/81; PULSE 68; RESP 18; TEMP 37.2; O2SAT 98
[2024-07-11 09:16] VITALS: BP 152/81; PULSE 68; RESP 18; TEMP 37.2; O2SAT 98
[2024-07-11] MEDS: Ferrous Sulfate 325 MG Tablet PO (09:18)
[2024-07-11] MEDS: hydroCHLOROthiazide 12.5mg 12.5 MG PO (09:18)
[2024-07-11] MEDS: amLODIPine 10 MG Tablet PO (09:18)
[2024-07-11] MEDS: Potassium Chloride Oral Tablet 10 MEQ PO (09:19)
[2024-07-11] MEDS: Pantoprazole Sodium 20 MG Tablet PO (09:19)
[2024-07-11] MEDS: Aspirin E.C. 81 MG Tablet PO (09:19)
[2024-07-11] MEDS: Cyanocobalamin 500 MCG Tablet 1000 MCG PO (09:20)
[2024-07-11] MEDS: Losartan Potassium 100 MG Tablet PO (09:20)
[2024-07-11] MEDS: Atenolol 25 MG Tablet PO (09:21)
[2024-07-11] MEDS: Polyethylene Glycol 3350 17 GM PACKET PO (09:28)
[2024-07-11] MEDS: Cefdinir 300 MG Capsule PO ×2 (09:28→21:35)
[2024-07-11] MEDS: Ensure Plus High Protein 120 ML LIQUID PO ×4 (09:29→21:35)
--- NOTE | 2024-07-11 10:48 | PN_ITS ---
Subjective Subjective Patient seen and examined. Her daughter in law was by her bedside. She had no active complaints. She had an uneventful night. Review of systems is otherwise negative. She has remained hemodynamically stable. Objective Data Objective Data Vital Signs: Vital Signs Temp Pulse Resp BP Pulse Ox O2 Del Method 98.9 F 68 18 152/81 H 98 Room Air 07/11/24 09:16 07/11/24 09:16 07/11/24 09:16 07/11/24 09:16 07/11/24 09:16 07/11/24 10:00 Oxygen Delivery Method Room Air Weight: 147 lb 11.355 oz Body Mass Index (BMI) 27.0 Intake & Output: Intake and Output for Last 24 Hours 07/09/24 07/10/24 07/11/24 23:59 23:59 23:59 Intake Total 2450 / 2450 630 / 980 470 / 470 Output Total 875 / 875 300 / 725 775 / 775 Balance 1575 / 1575 330 / 255 -305 / -305 Lab / Micro Data 07/11/24 06:30 07/11/24 06:30 Labs: Laboratory Results - last 24 hr 07/11/24 06:30: WBC 2.9 L, RBC 3.59 L, Hgb 11.1 L, Hct 34.3 L, MCV 95.5, MCH 30.9, MCHC 32.4, RDW Std Deviation 50.5 H, RDW Coeff of Avn 14.6, Plt Count 175, MPV 10.6, Immature Gran % (Auto) 0.000, Neut % (Auto) 69.9, Lymph % (Auto) 19.9, [place] % (Auto) 8.2, Eos % (Auto) 1.7, Baso % (Auto) 0.3, Absolute Neuts (auto) 2.0, Absolute Lymphs (auto) 0.58 L, Nucleated RBC % 0, Differential Comment SCANNED, Platelet Estimate ADEQUATE, Ovalocytes 3+, Sodium 143, Potassium 3.5, C hloride 110 H, Carbon Dioxide 27.0, Anion Gap 5, BUN 11, Creatinine 0.68, Estim Creat Clear Calc 52.02, Est GFR (MDRD) Af Amer 108, Est GFR (MDRD) Non-Af 89, BUN/Creatinine Ratio 16.2, Glucose 103, Calcium 8.9 Micro: Microbiology 07/08/24 15:42 Urine, Clean Catch Urine Culture - Final Mixed Gram Positive Organisms 07/08/24 14:17 Mucosa - Nose SARS-CoV-2, Influenza & RSV (PCR) - Final Rhythm Strip Rhythm Strip: Sinus Rhythm Rate: 66 Ectopy: None Physical Exam Const alert, oriented x3 and no apparent distress Constitutional Narrative: frail, weak General Appearance: cooperative and comfortable HEENT normocephalic, head/scalp atraumatic, hearing grossly normal bilaterally and nasal mucous membranes and turbinates normal Eyes PERRL, EOMs intact bilaterally and conjunctivae normal Neck full ROM, no lymphadenopathy and supple Lymph Lymphatic: no lymphadenopathy noted and no lymphedema noted Chest inspection of chest normal Resp normal respiratory effort, normal air movement, no use of accessory muscles and clear to auscultation bilaterally Cardio regular rate, regular rhythm, S1 normal heart sound, S2 normal heart sound, no murmurs and peripheral pulses 2+ throughout GI normal to inspection, nondistended, normoactive bowel sounds, soft to palpation, non-tender and non-distended Back/Spine normal ROM Extremity normal to inspection, normal capillary refill, no clubbing, cyanosis or edema, no calf tenderness and no pedal edema General Extremity: no tenderness to palpation of joints or extremities Skin no rashes or lesions noted General Skin Exam: no breakdown Neuro CN's II-XII intact bilaterally, moves all extremities and no focal motor deficits Speech: speech normal Motor Exam: general weakness Psych mental status grossly normal, thought process normal and cooperative Appearance: appropriate Assessment & Plan Assessment/Plan (1) Hypokalemia: (2) Weakness: (3) Acute UTI: (4) MAGALI (acute kidney injury): PLAN: Plan #Debility with failure to thrive in the setting of small cell lung cancer * Was diagnosed with small cell lung cancer in December 2023. She follows up with [facility] oncology and PET scan showed no metastatic disease. He completed chemotherapy with carboplatin and etoposide in March and subsequently completed about 40 sessions of radiation to the chest and 10 sessions of whole brain radiotherapy out of April. * Has been getting weaker at home and unable to carry out her activities of daily living. She has had very minimal appetite and sensitive spots have changed. Family could not care for her at home. * PT OT on board. Will likely need placement. Fall precautions. * CT of the brain showed no acute intracranial pathology. #UTI: * Urinalysis showed evidence of UTI. * Urine culture growing mixed gram positive organisms. * Was on IV ceftriaxone. * Now on PO cefdinir, to complete a 5 day course. #History of small cell lung cancer * As stated diagnosed with right upper lung small cell lung cancer in December of this year. Completed chemotherapy with etoposide and carboplatin and has had 40 cc of radiation to the chest incision and 10 sessions of whole brain radiation. * Follow-up with oncology on outpatient basis. * #MAGALI: Resolved. Creatinine has trended downwards to her baseline. Continue gentle hydration with IV fluids. Hypokalemia:resolved. K is 3.5 today. #Dysphagia: * Patient has not been able to eat or drink well. * Considering the radiation she had to her chest she is at risk for radiation esophagitis. * she tells me today she feels her eating has improved. Speech therapy on board and diagnosed patient with mild oropharyngeal dysphagia * IF swallowing worsens, will consider GI consult to evaluate for EGD * Per speech therapy, to be on small bites and small sips as well as alternate bites and solids and sips and remains sitting upright for 30 minutes after p.o. intake. #History of CAD s/p CABG: On aspirin and statin as well as amlodipine. #Hypertension: * On amlodipine. * Amlodipine and losartan resumed as well as atenolol and HCTZ. * IV hydralazine prn. * #History of multinodular goiter s/p thyroidectomy: On Synthroid. #Paroxysmal A-fib: On Xarelto and atenolol GERD: On PPI DVT prophylaxis: on xarelto Code status: full code Disposition: for likely dc to SNF tomorrow. Charges/Coding Visit Charges Inpatient E&M: 45813 Subs Hosp L2
[2024-07-11 16:00] VITALS: BP 144/66; PULSE 68; RESP 18; TEMP 37.1; O2SAT 98
[2024-07-11 17:00] VITALS: BP 144/66; PULSE 68; RESP 18; TEMP 37.1; O2SAT 98
[2024-07-11] MEDS: Rivaroxaban 20 MG Tablet PO (18:05)
[2024-07-11 21:28] VITALS: BP 147/83; PULSE 71; RESP 18; TEMP 36.6; O2SAT 93
[2024-07-11] MEDS: MELATONIN 3 MG TABLET PO (21:35)
[2024-07-11] MEDS: Atorvastatin Calcium 40 MG Tablet PO (21:35)
[2024-07-11] MEDS: Mirtazapine 15 MG Tablet PO (21:35)
[2024-07-11] MEDS: Acetaminophen 325 MG Tablet 650 MG PO (21:38)
[2024-07-12 05:00] VITALS: BP 142/72; PULSE 67; RESP 18; TEMP 36.6; O2SAT 96
[2024-07-12] MEDS: Levothyroxine 88 MCG Tablet PO (05:22)
[2024-07-12 07:21] LABS: Absolute Lymphocyte Count 0.76 X10^3/uL (0.83-4.51); Absolute Neutrophil Count 1.8 X10^3/uL (2.0-7.7); Basophil# 0.02 X10^3/uL; Basophil% 0.7 % (0-1); Eosinophil# 0.09 X10^3/uL; Hematocrit 36.3 % (37-47); Hemoglobin 11.6 g/dL (12.0-15.0); Lymphocyte # 0.76 X10^3/ul (0.83-4.51); Lymphocyte % 25.5 % (19-41); Mean Corpuscular Hgb 30.4 pg (27.0-32.0); Mean Platelet Vol. 10.3 fl (6.2-12.0); Monocyte% 10.1 % (0-10); NRBC Flagged by Analyzer 0 % (0-5); Neutrophil % 60.4 % (47-70); Platelet Count 168 K/mm3 (150-450); RBC Distribution Width CV 14.7 % (11.6-14.6); RBC Distribution Width SD 51.5 fl (35.1-43.9); Red Blood Count 3.82 M/mm3 (4.2-5.4)
[2024-07-12 07:42] LABS: Anion Gap 7 (5-15); BUN 12 mg/dL (7-18); BUN/Creat Ratio 18.2 RATIO (10-20); Calcium,Total 9.1 mg/dL (8.5-10.1); Chloride 110 mmol/L (98-107); Creatinine, Serum 0.66 mg/dL (0.55-1.02); EST Glomerular Filtration Rate 92 mL/min (>60); Est Glom Filt Rate - Afr Amer 111 mL/min (>60); Estimated Creatinine Clearance 52.02 ml/min; Glucose 90 mg/dL (74-106); Potassium 3.4 mmol/L (3.5-5.1); Sodium Level 142 mmol/L (136-145)
[2024-07-12 07:58] VITALS: BP 134/69; PULSE 85; RESP 18; TEMP 36.1; O2SAT 98
[2024-07-12] MEDS: Pantoprazole Sodium 20 MG Tablet PO (08:08)
[2024-07-12] MEDS: Atenolol 25 MG Tablet PO (08:08)
[2024-07-12] MEDS: Losartan Potassium 100 MG Tablet PO (08:09)
[2024-07-12] MEDS: Potassium Chloride Oral Tablet 10 MEQ PO (08:09)
[2024-07-12] MEDS: Cyanocobalamin 500 MCG Tablet 1000 MCG PO (08:10)
[2024-07-12] MEDS: Cefdinir 300 MG Capsule PO ×2 (08:10→20:48)
[2024-07-12] MEDS: Aspirin E.C. 81 MG Tablet PO (08:10)
[2024-07-12] MEDS: amLODIPine 10 MG Tablet PO (08:10)
[2024-07-12] MEDS: hydroCHLOROthiazide 12.5mg 12.5 MG PO (08:10)
[2024-07-12] MEDS: Ferrous Sulfate 325 MG Tablet PO (08:11)
[2024-07-12] MEDS: Ensure Plus High Protein 120 ML LIQUID PO ×2 (08:14→18:07)
--- NOTE | 2024-07-12 09:59 | PN_ITS ---
Subjective Subjective Patient seen and examined. Her and daughter were by her bedside. She had no active complaints. Daughter and were concerned about her poor appetite. THey wish for GI evaluation, since she had radiation for her cancer. She has remained hemodynamically stable. Objective Data Objective Data Vital Signs: Vital Signs Temp Pulse Resp BP Pulse Ox O2 Del Method 97.0 F L 85 18 134/69 H 98 Room Air 07/12/24 07:58 07/12/24 07:58 07/12/24 07:58 07/12/24 07:58 07/12/24 07:58 07/12/24 07:58 Oxygen Delivery Method Room Air Weight: 147 lb 11.355 oz Body Mass Index (BMI) 27.0 Intake & Output: Intake and Output for Last 24 Hours 07/10/24 07/11/24 07/12/24 23:59 23:59 23:59 Intake Total 630 / 980 2019 Output Total 300 / 725 2375 / 2375 Balance 330 / 255 -355 / -355 Lab / Micro Data 07/12/24 06:00 07/12/24 06:00 Labs: Laboratory Results - last 24 hr 07/12/24 06:00: WBC 3.0 L, RBC 3.82 L, Hgb 11.6 L, Hct 36.3 L, MCV 95.0, MCH 30.4, MCHC 32.0, RDW Std Deviation 51.5 H, RDW Coeff of Van 14.7 H, Plt Count 168, MPV 10.3, Immature Gran % (Auto) 0.300, Neut % (Auto) 60.4, Lymph % (Auto) 25.5, [place] % (Auto) 10.1 H, Eos % (Auto) 3.0, Baso % (Auto) 0.7, Absolute Neuts (auto) 1.8 L, Absolute Lymphs (auto) 0.76 L, Nucleated RBC % 0, Sodium 142, P otassium 3.4 L, Chloride 110 H, Carbon Dioxide 25.0, Anion Gap 7, BUN 12, Creatinine 0.66, Estim Creat Clear Calc 52.02, Est GFR (MDRD) Af Amer 111, Est GFR (MDRD) Non-Af 92, BUN/Creatinine Ratio 18.2, Glucose 90, Calcium 9.1 Micro: Microbiology 07/08/24 15:42 Urine, Clean Catch Urine Culture - Final Mixed Gram Positive Organisms 07/08/24 14:17 Mucosa - Nose SARS-CoV-2, Influenza & RSV (PCR) - Final Rhythm Strip Rhythm Strip: Sinus Rhythm Rate: 66 Ectopy: None Physical Exam Const alert, oriented x3 and no apparent distress Constitutional Narrative: frail, weak General Appearance: cooperative and comfortable HEENT normocephalic, head/scalp atraumatic, hearing grossly normal bilaterally and nasal mucous membranes and turbinates normal Eyes PERRL, EOMs intact bilaterally and conjunctivae normal Neck full ROM, no lymphadenopathy and supple Lymph Lymphatic: no lymphadenopathy noted and no lymphedema noted Chest inspection of chest normal Resp normal respiratory effort, normal air movement, no use of accessory muscles and clear to auscultation bilaterally Cardio regular rate, regular rhythm, S1 normal heart sound, S2 normal heart sound, no murmurs and peripheral pulses 2+ throughout GI normal to inspection, nondistended, normoactive bowel sounds, soft to palpation, non-tender and non-distended Back/Spine normal ROM Extremity normal to inspection, normal capillary refill, no clubbing, cyanosis or edema, no calf tenderness and no pedal edema General Extremity: no tenderness to palpation of joints or extremities Skin no rashes or lesions noted General Skin Exam: no breakdown Neuro CN's II-XII intact bilaterally, moves all extremities and no focal motor deficits Speech: speech normal Motor Exam: strength 5/5 throughout and general weakness Psych mental status grossly normal, thought process normal and cooperative Psych Narrative: Flat affect. Appearance: appropriate Assessment & Plan Assessment/Plan (1) Hypokalemia: (2) Weakness: (3) Acute UTI: (4) MAGALI (acute kidney injury): PLAN: Plan #Debility with failure to thrive in the setting of small cell lung cancer * Was diagnosed with small cell lung cancer in December 2023. She follows up with [facility] oncology and PET scan showed no metastatic disease. He completed chemotherapy with carboplatin and etoposide in March and subsequently completed about 40 sessions of radiation to the chest and 10 sessions of whole brain radiotherapy out of April. * Has been getting weaker at home and unable to carry out her activities of daily living. She has had very minimal appetite and sensitive spots have changed. Family could not care for her at home. * PT OT on board. awaiting placement Fall precautions. * CT of the brain showed no acute intracranial pathology. #UTI: * Urinalysis showed evidence of UTI. * Urine culture growing mixed gram positive organisms. * Was on IV ceftriaxone. * Now on PO cefdinir, to complete a 5 day course. #History of small cell lung cancer * As stated diagnosed with right upper lung small cell lung cancer in December of this year. Completed chemotherapy with etoposide and carboplatin and has had 40 cc of radiation to the chest incision and 10 sessions of whole brain radiation. * Follow-up with oncology on outpatient basis. * #MAGALI: Resolved. Creatinine has trended downwards to her baseline. Encourage oral hydration Hypokalemia:potassium is 3.4 today. WIll replace and trend. #Dysphagia: * Patient has not been able to eat or drink well. * Considering the radiation she had to her chest she is at risk for radiation esophagitis. * she tells me today she feels her eating has improved. Speech therapy on board and diagnosed patient with mild oropharyngeal dysphagia * Per speech therapy, to be on small bites and small sips as well as alternate bites and solids and sips and remains sitting upright for 30 minutes after p.o. intake. * family still very concerned about her swallowing and lack of appetite. WIll therefore consult GI for possible EGD to evaluate for a mechanical cause of dysphagia * on mirtazapine to help with her appetite. #History of CAD s/p CABG: On aspirin and statin as well as amlodipine. #Hypertension: * On amlodipine. * Amlodipine and losartan as well as HCTZ and atenolol. * IV hydralazine prn. * #History of multinodular goiter s/p thyroidectomy: On Synthroid. #Paroxysmal A-fib: On Xarelto and atenolol GERD: On PPI DVT prophylaxis: on xarelto Code status: full code Disposition: for likely dc to SNF tomorrow. Charges/Coding Visit Charges Inpatient E&M: 91237 Subs Hosp L2
[2024-07-12 14:54] VITALS: BP 116/50; PULSE 74; RESP 18; TEMP 36.4; O2SAT 95
--- NOTE | 2024-07-12 19:53 | CON.PCM.GI_ITS ---
HPI Consult Data Date of Consult: 07/12/24 HPI Narrative Reason for Consultation: Dysphagia HPI Narrative: CORNELIO VERMA, is a 78-year-old female with history of small cell lung cancer (previously underwent chemotherapy and radiation this summer), GERD, hypothyroid, hypertension and coronary artery disease status post CABG and heart stents presenting with generalized weakness. She states for the past few days she has been too weak to even walk. She has had this progressive weakness for the past month or so. She has that she has been having some intermittent headache for the past 4 weeks. She has not really been eating or drinking anything. She states nothing tastes good. She also says she has been having worsening pain with swallowing. [facility] Medical History Small cell lung cancer GERD (gastroesophageal reflux disease) Hypothyroid HTN (hypertension) CAD (coronary artery disease) Home Medications ?Medication ?Instructions ?Recorded ?Last Taken ?Type amlodipine 10 mg tablet 10 mg PO DAILY blood pressure 10/10/23 Unknown History aspirin 81 mg tablet,delayed 81 mg PO DAILY heart health 10/10/23 Unknown History release atenolol 25 mg tablet 25 mg PO DAILY blood pressure 10/10/23 Unknown History atorvastatin 40 mg tablet 40 mg PO DAILY cholesterol 10/10/23 Unknown History ergocalciferol (vitamin D2) 1,250 50,000 unit PO QWEEK supplement 10/10/23 Unknown History mcg (50,000 unit) capsule levothyroxine 100 mcg tablet 100 mcg PO MOWEFR thryoid 10/10/23 Unknown History levothyroxine 88 mcg tablet 88 mcg PO SUTUTHSA thyroid 10/10/23 Unknown History omeprazole 20 mg capsule,delayed 20 mg PO DAILY stomach 10/10/23 Unknown History release hydrochlorothiazide 12.5 mg capsule 12.5 mg PO DAILY 02/05/24 Unknown History losartan 100 mg tablet (Cozaar) 100 mg PO DAILY 02/05/24 Unknown History potassium chloride 10 mEq 10 meq PO DAILY 02/05/24 Unknown History tablet,extended release (Klor-Con) rivaroxaban 20 mg tablet (Xarelto) 20 mg PO QPM 07/08/24 Unknown History Allergy/AdvReac Type Severity Reaction Status Date / Time meperidine (From Demerol) Allergy Vomiting Verified 07/08/24 12:14 morphine Allergy Vomiting Verified 07/08/24 12:14 Surgical History H/O heart artery stent Hx of CABG Social History household members: spouse housing: house Smoking Status: Never smoker ROS Constitutional Constitutional: Reports fatigue and weakness; Denies chills or fever(s) Eyes Eyes: Denies change in vision Cardiovascular Cardiovascular: Denies chest pain, dyspnea on exertion, edema, lightheadedness, palpitations or rapid heart rate Respiratory/Chest Respiratory/Chest: Denies cough, shortness of breath at rest or wheezing Gastrointestinal Gastrointestinal: Denies abdominal pain, constipation, diarrhea, dyspepsia, nausea or vomiting Genitourinary Genitourinary: Denies dysuria, urinary frequency or urinary urgency Musculoskeletal Musculoskeletal: Denies arthralgias, back pain or myalgias Neurologic Neurologic: Denies dizziness, focal weakness or headache(s) Physical Exam Const alert, oriented x3 and no apparent distress Constitutional Narrative: frail, weak General Appearance: cooperative and comfortable HEENT normocephalic, head/scalp atraumatic, hearing grossly normal bilaterally and nasal mucous membranes and turbinates normal Eyes PERRL, EOMs intact bilaterally and conjunctivae normal Neck full ROM, no lymphadenopathy and supple Lymph Lymphatic: no lymphadenopathy noted and no lymphedema noted Chest inspection of chest normal Resp normal respiratory effort, normal air movement, no use of accessory muscles and clear to auscultation bilaterally Cardio regular rate, regular rhythm, S1 normal heart sound, S2 normal heart sound, no murmurs and peripheral pulses 2+ throughout GI normal to inspection, nondistended, normoactive bowel sounds, soft to palpation, non-tender and non-distended Back/Spine normal ROM Extremity normal to inspection, normal capillary refill, no clubbing, cyanosis or edema, no calf tenderness and no pedal edema General Extremity: no tenderness to palpation of joints or extremities Skin no rashes or lesions noted General Skin Exam: no breakdown Neuro CN's II-XII intact bilaterally, moves all extremities and no focal motor deficits Speech: speech normal Motor Exam: strength 5/5 throughout and general weakness Psych mental status grossly normal, thought process normal and cooperative Psych Narrative: Flat affect. Appearance: appropriate Lab / Micro Data 07/12/24 06:00 07/12/24 06:00 Labs: Laboratory Results - last 24 hr 07/12/24 06:00: WBC 3.0 L, RBC 3.82 L, Hgb 11.6 L, Hct 36.3 L, MCV 95.0, MCH 30.4, MCHC 32.0, RDW Std Deviation 51.5 H, RDW Coeff of Van 14.7 H, Plt Count 168, MPV 10.3, Immature Gran % (Auto) 0.300, Neut % (Auto) 60.4, Lymph % (Auto) 25.5, [place] % (Auto) 10.1 H, Eos % (Auto) 3.0, Baso % (Auto) 0.7, Absolute Neuts (auto) 1.8 L, Absolute Lymphs (auto) 0.76 L, Nucleated RBC % 0, Sodium 142, P otassium 3.4 L, Chloride 110 H, Carbon Dioxide 25.0, Anion Gap 7, BUN 12, Creatinine 0.66, Estim Creat Clear Calc 52.02, Est GFR (MDRD) Af Amer 111, Est GFR (MDRD) Non-Af 92, BUN/Creatinine Ratio 18.2, Glucose 90, Calcium 9.1 Rhythm Strip Rhythm Strip: Sinus Rhythm Rate: 66 Ectopy: None Assessment & Plan Assessment/Plan (1) Hypokalemia: (2) Weakness: (3) Acute UTI: (4) MAGALI (acute kidney injury): PLAN: Plan 78-year-old with history of small cell carcinoma of the lung status post chemotherapy and radiation Progressive dysphagia and weight loss. She is at risk for radiation-induced esophagitis resulting in stricture, odynophagia and dysphagia along with worsening gastroesophageal reflux disease due to poor clearance caused by decreased motility of the esophagus due to radiation. She should undergo an upper endoscopy to evaluate upper GI tract. She was explained alternatives, risk, benefits include not withstanding bleeding, infection, sepsis, perforation, need for emergent urgent . She will have an ASA of 3. Charges/Coding Visit Charges Inpatient E&M: 66809 Init Hosp L3
[2024-07-12 20:37] VITALS: BP 124/86; PULSE 71; RESP 18; TEMP 36.9; O2SAT 96
[2024-07-12] MEDS: Mirtazapine 15 MG Tablet PO (20:48)
[2024-07-12] MEDS: Atorvastatin Calcium 40 MG Tablet PO (20:48)
[2024-07-12] MEDS: Acetaminophen 325 MG Tablet 650 MG PO (20:50)
[2024-07-12] MEDS: MELATONIN 3 MG TABLET PO (20:50)
[2024-07-13] VITALS (12 sets, daily range): BP systolic 97–151; BP diastolic 65–75; PULSE 66–75; RESP 14–20; TEMP 36.4–37; O2SAT 3–98; BMI 27.0
--- NOTE | 2024-07-13 04:20 | CASEMGMT ---
Social Work- Acceptance has been obtained.? Physician updated and pt is ready for discharge today.? SW met with pt and they are agreeable to discharge plan to [facility].? Bedside nurse, Tomeka, notified of discharge time. Green sheet and transportation forms on chart. JUDITH Mcghee
[2024-07-13 07:21] LABS: Absolute Lymphocyte Count 0.77 X10^3/uL (0.83-4.51); Absolute Neutrophil Count 1.6 X10^3/uL (2.0-7.7); Basophil# 0.02 X10^3/uL; Basophil% 0.7 % (0-1); Eosinophil# 0.08 X10^3/uL; Eosinophils% 2.9 % (0-5); Hematocrit 38.2 % (37-47); Hemoglobin 11.9 g/dL (12.0-15.0); Lymphocyte # 0.77 X10^3/ul (0.83-4.51); Lymphocyte % 28.3 % (19-41); Mean Corp Hgb Conc 31.2 g/dL (32-36); Mean Corpuscular Hgb 30.4 pg (27.0-32.0); Mean Corpuscular Volume 97.7 fL (81-99); Mean Platelet Vol. 10.9 fl (6.2-12.0); Monocyte# 0.22 X10^3/uL; Monocyte% 8.1 % (0-10); NRBC Flagged by Analyzer 0 % (0-5); Neutrophil # 1.62 X10^3/uL (2.7-7.7); Neutrophil % 59.6 % (47-70); Platelet Count 169 K/mm3 (150-450); RBC Distribution Width CV 14.7 % (11.6-14.6); Red Blood Count 3.91 M/mm3 (4.2-5.4); White Blood Count 2.7 K/mm3 (4.4-11.0)
[2024-07-13 08:31] LABS: International Normalized Ratio 1.4; Prothrombin Time (Protime)PT. 17.3 SECONDS (11.7-14.9)
[2024-07-13 08:32] LABS: Partial Thromboplast Time 29.3 Seconds (24.1-36.2)
[2024-07-13] MEDS: Atenolol 25 MG Tablet PO (10:26)
[2024-07-13] MEDS: amLODIPine 10 MG Tablet PO (10:26)
[2024-07-13] MEDS: Pantoprazole Sodium 20 MG Tablet PO (10:27)
[2024-07-13] MEDS: Losartan Potassium 100 MG Tablet PO (10:27)
[2024-07-13 10:48] LABS: Anion Gap 8 (5-15); BUN 17 mg/dL (7-18); BUN/Creat Ratio 21.4 RATIO (10-20); Chloride 110 mmol/L (98-107); Creatinine, Serum 0.79 mg/dL (0.55-1.02); EST Glomerular Filtration Rate 74 mL/min (>60); Est Glom Filt Rate - Afr Amer 90 mL/min (>60); Estimated Creatinine Clearance 52.02 ml/min; Glucose 91 mg/dL (74-106); Potassium 3.9 mmol/L (3.5-5.1); Sodium Level 140 mmol/L (136-145)
--- NOTE | 2024-07-13 15:32 | PCM.PRE.AN2 ---
ASA Classification* ASA Classification ASA Classification: 3 Assessment & Plan Anesthesia* Anesthesia Assessment Anesthesia Assessment: Discussed sedation and/or anesthesia options, risks, benefits, and alternatives with patient/parents/legal guardian/POA. Questions invited. The patient/parents/legal guardian/POA seems to understand and agrees to proceed with anesthesia plan. Reviewed the physical assessment, medical history, allergy history and patient home medications list prior to surgery/procedure/anesthetic and documented any changes. Performed airway and anesthesia risk assessments. Anesthesia Type Anesthesia Type: MAC History Source History Obtained from:: Patient and Significant Other (Patient's ) Anesthesia Focused Assessment* Temperature: 98.6 F Pulse Rate: 67 Blood Pressure: 143/75 Respiratory Rate: 14 Pulse Ox: 93 Oxygen Delivery Method: Room Air Airway Assessment Mouth opens: >3 cm Mallampati Score: II Teeth Condition: Missing Neck Range of motion (ROM): Full ROM Focused Labs Anesthesia Preop lab: CBC WBC 2.7 K/mm3 (4.4-11.0) L 07/13/24 06:21 RBC 3.91 M/mm3 (4.2-5.4) L 07/13/24 06:21 Hgb 11.9 g/dL (12.0-15.0) L 07/13/24 06:21 Hct 38.2 % (37-47) 07/13/24 06:21 Plt Count 169 K/mm3 (150-450) 07/13/24 06:21 CHEMISTRY Potassium 3.9 mmol/L (3.5-5.1) 07/13/24 06:21 Sodium 140 mmol/L (136-145) 07/13/24 06:21 Magnesium 2.1 mg/dL (1.6-2.6) 07/09/24 06:06 Phosphorus 4.2 mg/dL (2.5-4.9) 07/08/24 13:29 BUN 17 mg/dL (7-18) 07/13/24 06:21 Creatinine 0.79 mg/dL (0.55-1.02) 07/13/24 06:21 Glucose 91 mg/dL (74-106) 07/13/24 06:21 POC Glucose 117 mg/dL (74-106) H 10/10/23 18:54 TSH 1.770 uIU/mL (0.358-3.740) 07/13/24 06:21 COAG PT 17.3 SECONDS (11.7-14.9) H 07/13/24 06:21 Pre-Assessment Diagnosis/Proposed Procedure Planned Operative Procedure(s): EGD with esophageal dilation. 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 When Was Last Pacemaker Check QUESTION #4 FULL TEXT: You/Your Family Experience fever (hyperthermia) with Anesthesia Last Oral Intake Last Oral intake: Last Oral Intake NPO since 00:00 07/13/24 11:37 Meds taken in AM with sips of Yes 07/13/24 11:37 water? Meds patient instructed to See MAR 07/13/24 11:37 take am of surgery PONV PONV - knurling machine operator: PONV - knurling machine operator Female HX of Motion Sickness HX of N/V After Surgery Non-Smoker Duration of Surgery greater than 60 minutes Number of Risk Factors PONV Score Height & Weight Height & Weight: Anesthesia: Height & Weight Height 5 ft 2 in 07/13/24 11:37 Weight: 67 kg 07/13/24 11:37 Body Mass Index (BMI) 27.0 07/13/24 11:37 Respiratory Assessment Respiratory Assessment - knurling machine operator: Respiratory Tract Infection Hx - knurling machine operator Hx Respiratory Tract Infection No 07/13/24 04:22 STOP Sleep Apnea STOP Sleep Apnea - knurling machine operator: STOP Sleep Apnea - knurling machine operator Hx Hypertension Yes 07/09/24 14:21 Hx Sleep Apnea Yes 07/08/24 17:41 CPAP No 07/08/24 17:41 BIPAP Yes 07/08/24 17:41 Do you snore loudly (louder than talking or can be heard Do you often feel tired/ fatigued/ sleepy during daytime? Has anyone observed you stop breathing during sleep? STOP Results Positive 07/08/24 17:41 QUESTION #5 FULL TEXT : Do you snore loudly (louder than talking or can be heard through closed doors)? Tobacco Use History Tobacco Use History - knurling machine operator: Tobacco Use History - knurling machine operator Tobacco Use Smoking Status Never smoker 07/08/24 17:41 Hx Tobacco Use No 07/08/24 17:41 Years Smoking Packs Smoked per Day Smoking Cessation Date was within the last 15 years Hx Smoking Cessation Date Hx Smoking Cessation Counseling Hematologic Medial History Hematologic Hx - knurling machine operator: Hematologic Medical Hx - netsuite developer Hx of Blood Transfusion Yes 07/08/24 17:41 Hx of Transfusion in last 3 No 07/08/24 17:41 Months Date of Last Transfusion (if within last 3 months) Ever experience any problems No 07/08/24 17:41 with transfusion(s)? Specify any problems Hx of Preganancy in last 3 N/A 07/08/24 17:41 Months Nurse Filling Out Transfusion JDIAL 07/08/24 17:41 & Questions: Date: 07/08/24 07/08/24 17:41 Time: 17:59 07/08/24 17:41 Patient unable to answer at this time (ie. confused, unrespo /Reproduction History /Reproductive History - knurling machine operator: /Reproductive Hx- knurling machine operator Hx Now No 07/13/24 04:22 Gestational Age (in weeks): EDC: Hx Hx Para Hx Section SAB No 07/13/24 04:22 Active Medications Active Medications: Current Medications Generic Name Dose Route Start Last Admin Trade Name Freq PRN Reason Stop Dose Admin Acetaminophen 650 mg 07/08/24 17:39 07/12/24 20:50 Acetaminophen 325 Mg Tablet PO 650 mg Q6H PRN PRN Administration Pain 1-10 Or Fever>100.7 Amlodipine Besylate 10 mg 07/09/24 10:00 07/13/24 10:26 Amlodipine 10 Mg Tablet PO 10 mg DAILY RIMA Administration Protocol Aspirin 81 mg 07/09/24 08:00 07/13/24 10:23 Aspirin E.C. 81 Mg [facility] Atenolol 25 mg 07/09/24 10:00 07/13/24 10:26 Atenolol 25 Mg Tablet PO 25 mg DAILY RIMA Administration Protocol Atorvastatin Calcium 40 mg 07/08/24 22:00 07/12/24 20:48 Atorvastatin Calcium 40 Mg Tablet PO 40 mg QHS RIMA Administration Cyanocobalamin 1,000 mcg 07/09/24 10:00 07/13/24 10:26 Cyanocobalamin 500 Mcg Tablet PO Not Given DAILY RIMA Ferrous Sulfate 325 mg 07/09/24 08:00 07/13/24 10:23 Ferrous Sulfate 325 Mg Tablet [facility] Hydralazine HCl 10 mg 07/11/24 10:58 Hydralazine 20 Mg/Ml Vial IV Q6H PRN PRN Blood Pressure >160/110 Protocol Hydrochlorothiazide 12.5 mg 07/11/24 10:00 07/13/24 10:24 Hydrochlorothiazide 12.5mg PO Not Given DAILY RIMA Protocol Sodium Chloride 250 mls @ 15 mls/hr 07/09/24 08:39 IV .[id number] PRN Additional IVPB Infusion Sodium Chloride 250 mls @ 15 mls/hr 07/09/24 08:39 IV .[id number] PRN Saline Flush Levothyroxine Sodium 100 mcg 07/10/24 06:00 07/13/24 06:18 Levothyroxine 100 Mcg Tablet PO Not Given [id number] RIMA Levothyroxine Sodium 88 mcg 07/09/24 06:00 07/12/24 05:22 Levothyroxine 88 Mcg Tablet PO 88 mcg [email or web address] RIMA Administration Losartan Potassium 100 mg 07/11/24 10:00 07/13/24 10:27 Losartan Potassium 100 Mg Tablet PO 100 mg DAILY RIMA Administration Protocol Melatonin 3 mg 07/08/24 17:39 07/12/24 20:50 Melatonin 3 Mg Tablet PO 3 mg QHS PRN PRN Administration INSOMNIA Mirtazapine 15 mg 07/08/24 22:00 07/12/24 20:48 Mirtazapine 15 Mg Tablet PO 15 mg QHS RIMA Administration Nutritional Formula (Lactose Free) 120 ml 07/09/24 18:00 07/13/24 13:44 Ensure Plus High Protein 120 Ml Liquid PO Not Given 4X/DAY RIMA Ondansetron HCl 4 mg 07/08/24 17:39 Ondansetron 4 Mg/2 Ml Vial IV Q8H PRN PRN NAUSEA/VOMITING Pantoprazole Sodium 20 mg 07/09/24 10:00 07/13/24 10:27 Pantoprazole Sodium 20 Mg Tablet PO 20 mg DAILY RIMA Administration Polyethylene Glycol 17 gm 07/11/24 10:00 07/13/24 10:24 Polyethylene Glycol 3350 17 Gm Packet PO Not Given DAILY RIMA Potassium Chloride 10 meq 07/09/24 08:00 07/13/24 10:23 Potassium Chloride Oral Tablet 10 Meq PO Not Given DAILYCM RIMA Rivaroxaban 20 mg 07/08/24 21:00 07/11/24 18:05 Rivaroxaban 20 Mg Tablet PO 20 mg DINNER RIMA Administration Sodium Chloride 10 - 40 ml 07/08/24 18:29 07/09/24 02:31 0.9% Saline Lock 10 Ml Syringe IV 10 ml UD PRN Administration SALINE FLUSH Sodium Chloride 10 - 40 ml 07/09/24 08:39 0.9% Saline Lock 10 Ml Syringe IV UD PRN SALINE FLUSH [facility] Medical History Small cell lung cancer GERD (gastroesophageal reflux disease) Hypothyroid HTN (hypertension) CAD (coronary artery disease) Home Medications ?Medication ?Instructions ?Recorded ?Last Taken ?Type amlodipine 10 mg tablet 10 mg PO DAILY blood pressure 10/10/23 Unknown History aspirin 81 mg tablet,delayed 81 mg PO DAILY heart health 10/10/23 Unknown History release atenolol 25 mg tablet 25 mg PO DAILY blood pressure 10/10/23 Unknown History atorvastatin 40 mg tablet 40 mg PO DAILY cholesterol 10/10/23 Unknown History ergocalciferol (vitamin D2) 1,250 50,000 unit PO QWEEK supplement 10/10/23 Unknown History mcg (50,000 unit) capsule levothyroxine 100 mcg tablet 100 mcg PO MOWEFR thryoid 10/10/23 Unknown History levothyroxine 88 mcg tablet 88 mcg PO SUTUTHSA thyroid 10/10/23 Unknown History omeprazole 20 mg capsule,delayed 20 mg PO DAILY stomach 10/10/23 Unknown History release hydrochlorothiazide 12.5 mg capsule 12.5 mg PO DAILY 02/05/24 Unknown History losartan 100 mg tablet (Cozaar) 100 mg PO DAILY 02/05/24 Unknown History potassium chloride 10 mEq 10 meq PO DAILY 02/05/24 Unknown History tablet,extended release (Klor-Con) rivaroxaban 20 mg tablet (Xarelto) 20 mg PO QPM 07/08/24 Unknown History Allergy/AdvReac Type Severity Reaction Status Date / Time meperidine (From Demerol) Allergy Vomiting Verified 07/08/24 12:14 morphine Allergy Vomiting Verified 07/08/24 12:14 Surgical History H/O heart artery stent Hx of CABG Social History household members: spouse housing: house Smoking Status: Never smoker Review of Systems (Anesthesia) ROS Narrative System reviewed and no additional complaints, except as documented.
--- NOTE | 2024-07-13 15:50 | DS.PCM_ITS ---
Providers Date of Admission: 07/09/24 Date of Discharge: 07/13/24 Primary Care Physician: Dr. Ailyn Will, DO Consultations 07/12/24 09:58 Consult: Gastroenterology Routine Consulting Provider: [facility] Reason for Consult: dysphagia EMERGENT Consult: No MD Notified: Yes Date Notified: 07/12/24 Time Notified: 09:58 Method of Notification: Text Reason For Visit: ACUTE ON CHRONIC DEBILITY Diagnosis Discharge Diagnosis (1) Hypokalemia: Status: Acute Code(s): E87.6 - Hypokalemia (2) Weakness: Status: Acute Code(s): R53.1 - Weakness (3) Acute UTI: Status: Acute Code(s): N39.0 - Urinary tract infection, site not specified (4) MAGALI (acute kidney injury): Status: Acute Code(s): N17.9 - Acute kidney failure, unspecified Medications at Discharge Home Medications amlodipine 10 mg tablet 10 mg PO DAILY blood pressure 10/10/23 aspirin 81 mg tablet,delayed release 81 mg PO DAILY heart health 10/10/23 atenolol 25 mg tablet 25 mg PO DAILY blood pressure 10/10/23 atorvastatin 40 mg tablet 40 mg PO DAILY cholesterol 10/10/23 ergocalciferol (vitamin D2) 1,250 mcg (50,000 unit) capsule 50,000 unit PO QWEEK supplement 10/10/23 levothyroxine 100 mcg tablet 100 mcg PO MOWEFR thryoid 10/10/23 levothyroxine 88 mcg tablet 88 mcg PO SUTUTHSA thyroid 10/10/23 omeprazole 20 mg capsule,delayed release 20 mg PO DAILY stomach 10/10/23 hydrochlorothiazide 12.5 mg capsule 12.5 mg PO DAILY 02/05/24 losartan 100 mg tablet (Cozaar) 100 mg PO DAILY 02/05/24 potassium chloride 10 mEq tablet,extended release (Klor-Con) 10 meq PO DAILY 02/05/24 rivaroxaban 20 mg tablet (Xarelto) 20 mg PO QPM 07/08/24 food supplemt, lactose-reduced 0.08 gram-1.5 kcal/mL oral liquid (Ensure Plus High Protein) 120 ml PO 4X/DAY #0 mL 07/13/24 melatonin 3 mg tablet 3 mg PO QHS PRN PRN Insomnia #0 tabs 07/13/24 mirtazapine 15 mg tablet 15 mg PO QHS #0 tabs 07/13/24 Hospital Course Procedures EGD, EKG and - (CT brain/chest x-ray) Summary of Care Provided Minutes Spent on Discharge: 38 Hospital Course: Mrs. Brown is a 78-year-old white female who presented to the emergency department at [facility] on 07/08/2024 with worsening debility. She was diagnosed with small cell lung cancer in December of this year and follows as an outpatient with Dr. Parekh for oncology. She was seen in the office that day prior to presentation. She was diagnosed with limited stage small cell lung CA and PET scan performed prior to treatment showed no metastatic disease. She completed carboplatin and etoposide chemotherapy in March and then had approximately 40 sessions of radiation therapy to the chest along with 10 sessions of whole brain radiation which ended at the end of April. She did well with both therapies however since the ending of her chemo and radiation she has had progressively worsening debility. She has lost weight of about 20 pounds since beginning of April and reports minimal appetite with decreased and altered taste. She states nothing seems to be appetizing. She also reported difficulty swallowing some foods and the sensation of gagging. Family has had difficulty caring for her at home so they brought her to the emergency department for further evaluation. Her vital signs were overtly unremarkable on presentation. Notable labs included mild serum creatinine elevation and hypokalemia on presentation both of which have resolved. UA was notable for leuk esterase, negative for nitrites but had 3+ bacteria and white cells and given her worsening weakness and debility she was started on antibiotics and admitted to the hospital. She was placed on ceftriaxone and cultures were sent prior to antibiotic initiation. She was given IV fluids for her creatinine elevation which has resolved. Given the concern for swallowing difficulty GI was consulted and an EGD was done on 07/13/2024 which demonstrated abnormal esophageal motility and is suspicious for achalasia which was dilated and biopsied, normal stomach and normal to the first portion of the duodenum. With regards to her diet soft diet with supplements recommended and advance as tolerated.. Physical and Occupational Therapy evaluated the patient and recommend ongoing therapy services. Speech therapy has also been following during her hospitalization due to her swallowing difficulties. With regards to her urinary tract infection culture showed mixed gram-positive organisms antibiotics were discontinued prior to discharge. She was started on mirtazapine for assistance with appetite stimulant and was placed on supplements to help address her weight loss and nutritional status. She was discharged in stable condition [facility] 07/13/[facility]. I have asked her to follow-up with Dr. Izabella russo as she was previously instructed and her primary care physician within 1 week after discharge from rehab. She was also instructed to follow-up with Dr. Heck's office within the next 2 weeks for follow-up on her biopsy and her suspected achalasia. Discharge diagnoses: Acute on chronic debility Abnormal UA-UTI ruled out Small cell lung cancer Abnormal esophageal motility Severe malnutrition MAGALI-resolved Hypokalemia-resolved Dysphagia Dysgeusia secondary to chemotherapy CAD status post CABG Hypertension Hyperlipidemia History of TIA History of carotid artery stenosis status post endarterectomy History of multinodular goiter status post thyroidectomy Paroxysmal atrial fibrillation GERD Chronic anticoagulation Physical Exam Const alert, oriented x3, no apparent distress, average body habitus and no limitations; Negative for healthy appearing or well nourished Constitutional Narrative: Older, middle-aged, white female, lying in bed, soft-spoken, at bedside, currently appears comfortable and nontoxic General Appearance: cooperative, comfortable, well kempt and well developed Orientation / Consciousness: awake Exam Limitations: no limitations HEENT normocephalic, head/scalp atraumatic, hearing grossly normal bilaterally and moist oral mucous membranes HEENT Narrative: Alopecia secondary to chemo, Mallampati 3, no thrush Eyes PERRL, EOMs intact bilaterally and conjunctivae normal Eyes Narrative: No scleral icterus Neck no lymphadenopathy and supple Neck Narrative: Trachea midline Resp normal respiratory effort, no retractions, no use of accessory muscles and clear to auscultation bilaterally Auscultation: Negative for rales, rhonchi or wheezes Cardio regular rate, regular rhythm, S1 normal heart sound, S2 normal heart sound, no murmurs, no rub, no gallops and no clicks GI normal to inspection, nondistended, normoactive bowel sounds, soft to palpation and non-tender Extremity no clubbing, cyanosis or edema Extremity Narrative: Pedal pulses are 2+ Skin no wounds, skin turgor normal and no jaundice Skin Narrative: Pale, few scattered ecchymosis on arms related to IV sticks Neuro oriented x3 and moves all extremities Neuro Narrative: Significant generalized weakness noted with no focal deficits appreciated, soft- spoken Speech: speech normal Psych affect normal Psych Narrative: Very pleasant, interacts appropriately Weight / BMI Weight Weight: 67 kg Body Mass Index (BMI) 27.0 ABG / Lab / Microbiology Data 07/13/24 06:21 07/13/24 06:21 Laboratory: Laboratory Results - last 24 hr 07/13/24 06:21: WBC 2.7 L, RBC 3.91 L, Hgb 11.9 L, Hct 38.2, MCV 97.7, MCH 30.4, MCHC 31.2 L, RDW Std Deviation 53.0 H, RDW Coeff of Van 14.7 H, Plt Count 169, MPV 10.9, Immature Gran % (Auto) 0.400, Neut % (Auto) 59.6, Lymph % (Auto) 28.3, [place] % (Auto) 8.1, Eos % (Auto) 2.9, Baso % (Auto) 0.7, Absolute Neuts (auto) 1.6 L, Absolute Lymphs (auto) 0.77 L, Nucleated RBC % 0, PT 17.3 H, INR 1.4, APTT 29.3, Sodium 140, Potassium 3.9, Chloride 110 H, Carbon Dioxide 22.0, Anion Gap 8, BUN 17, Creatinine 0.79, Estim Creat Clear Calc 52.02, Est GFR (MDRD) Af Amer 90, Est GFR (MDRD) Non-Af 74, BUN/Creatinine Ratio 21.4 H, Glucose 91, Calcium 9.0, TSH 1.770 Microbiology: Microbiology 07/08/24 15:42 Urine, Clean Catch Urine Culture - Final Mixed Gram Positive Organisms 07/08/24 14:17 Mucosa - Nose SARS-CoV-2, Influenza & RSV (PCR) - Final D/C Instructions Discharge Diet: Soft diet Meaningful Use Info Meaningful Use Meaningful Use Diagnoses (Choose all that apply): None applicable Ischemic Stroke Statin Dosing Therapy Reference: STATIN DOSE THERAPY REFERENCE: * Patients > 75 years receive moderate or high dose statin therapy. * Patients 75 years or YOUNGER should receive HIGH intensity statin dose unless contraindicated. You will be required to document reason for non-treatment if statin daily dose does not meet guidelines. HIGH DOSE STATIN THERAPY DAILY Atorvastatin > than or = to 40 mg Rosuvastatin > than or = to 20 mg Amlodipine + Atorvastatin > than or = to 2.5/40 mg Ezetimibe + Simvastatin 10/80 mg Simvastatin 80mg Discharge Plan Admission Admit Date/Time: 07/09/24 16:09 Primary Reason for Your Visit: Generalized weakness/Decreased appetite Attending Provider: Violeta Ang Primary Care Provider: Ailyn Will Consulting Providers: Matt Mendieta; Nelia Childress Discharge Orders/Prescriptions Prescriptions: New melatonin 3 mg Tablet 3 mg PO QHS PRN PRN (Reason: Insomnia) Qty: 0 0RF mirtazapine 15 mg Tablet 15 mg PO QHS Qty: 0 0RF Ensure Plus High Protein 0.08 gram-1.5 kcal/mL Liquid 120 ml PO 4X/DAY Qty: 0 0RF Continued atenolol 25 mg tablet 25 mg PO DAILY Patient Comments: TAKE 1 TABLET BY MOUTH EVERY DAY omeprazole 20 mg capsule,delayed release(DR/EC) 20 mg PO DAILY Patient Comments: TAKE 1 CAPSULE BY MOUTH EVERY DAY amlodipine 10 mg tablet 10 mg PO DAILY Patient Comments: TAKE 1 TABLET BY MOUTH EVERY DAY IN THE MORNING atorvastatin 40 mg tablet 40 mg PO DAILY Patient Comments: TAKE 1 TABLET BY MOUTH EVERY DAY ergocalciferol (vitamin D2) 1,250 mcg (50,000 unit) capsule 50,000 unit PO QWEEK Patient Comments: TAKE 1 CAPSULE BY MOUTH ON THURSDAYS levothyroxine 100 mcg tablet 100 mcg PO Patient Comments: TAKE 1 TABLET ON MONDAYS, WEDNESDAYS, AND FRIDAYS, ALTERNATE WITH 88 MCG ON OTHER DAY levothyroxine 88 mcg tablet 88 mcg PO SUTUTHSA Patient Comments: PLEASE SEE ATTACHED FOR DETAILED DIRECTIONS aspirin 81 mg tablet,delayed release (DR/EC) 81 mg PO DAILY Patient Comments: TAKE 1 TABLET BY MOUTH EVERY DAY Xarelto 20 mg tablet 20 mg PO QPM hydrochlorothiazide 12.5 mg capsule 12.5 mg PO DAILY potassium chloride [Klor-Con 10] 10 mEq tablet extended release 10 meq PO DAILY losartan [Cozaar] 100 mg tablet 100 mg PO DAILY Referrals / Follow Up: Ailyn Will DO [Primary Care Provider] - Within 1 Week (After discharge from skilled facility) Jimenez Parekh DO [Med Staff - Active Staff] - See Referral Note Friend,DO Rufus [Med Staff - Active Staff] - Within 2 Weeks (Hospital f/u for bx results and further outpt testing) Disposition Disposition (needs filled in before D/C Order can be placed): [facility] Facility Charges/Coding Visit Charges Inpatient E&M: 05464 SNF Disch >30 Min
--- NOTE | 2024-07-13 16:00 | EGD_PTH ---
PATIENT: CORNELIO VERMA LOC: MS3 U#:[id number] AGE/SX: 78/F [place] [facility] [place]: Dr. Violeta Ang DO : 1945 BED: 1 DIS: 07/13/2024 SPEC #: [id number] RECD: 07/14/24 09:21 STATUS: DWIGHT REMackenzie #: [id number] ANA: 07/13/24 16:[address]: Rufus Heck DEPT: SURGICAL PATHOLOGY RECD BY: Delores Overton ENTERED: 07/14/24 10:59 SP TYPE: EGD BIOPSY OTHR DR: Dr. Matt Mendieta, DO Dr. Deloris Reilly, DO Dr. Violeta Ang, DO Dr. Ailyn Will, DO Dr. Nelia Childress MD Tissues: Esophagus, NOS Procedures: Surgery Specimen Level IV Comments: @ Ordering doctor for JONATHAN edited from to @ jose LIU at 07/14/24 1134 @ Submitting doctor edited from to @ jose LIU at 07/14/24 1134 HEADER OPERATION: EGD PRE-OP DIAGNOSIS: Dysphagia TISSUE SUBMITTED: Random esophagus MICROSCOPIC DIAGNOSIS Esophagus, random biopsy: Fragments of benign squamous epithelium. See comment. 07/15/2024 COMMENT Correlation with clinical, endoscopic findings and appropriate follow up are necessary. MICROSCOPIC DESCRIPTION Slides are reviewed. GROSS DESCRIPTION Received in fixative is one container labeled with the patient's name and designated Random esophagus biopsy. The specimen consists of two irregular fragments of light king soft tissue that in aggregate measure 0.7 x 0.3 x 0.1 cm. The specimen is totally submitted in one cassette. AM/ 07/14/2024 TC:5 CPT:04336
--- NOTE | 2024-07-13 16:20 | CASEMGMT ---
Social Work- Acceptance has been obtained.? Physician updated and pt is ready for discharge today.? SW met with pt and they are agreeable to discharge plan to [facility].? Bedside nurse, Tomeka, notified of discharge time. Green sheet and transportation forms on chart. JUDITH Mcghee
--- NOTE | 2024-07-13 17:04 | PCM.POST.ANE ---
Anesthesia: Postop Eval I Current Vital Signs Temperature: 97.6 F Pulse Rate: 68 Blood Pressure: 97/66 Respiratory Rate: 18 Pulse Ox: 95 Assessment Airway patent: Yes Spontaneous unlabored respirations: Yes nausea: No Vomiting: No Anesthesia Complication: No Fluid Hydration Crystalloid volume administer (ml): 5 Total IV fluid infused: 5 Progress Note Anesthesia document: Postop Eval 1 completed: Yes
--- NOTE | 2024-07-13 17:21 | OP.EGD_ITS ---
Patient Name: Marcia Lomeli Procedure Date: 07/13/2024 3:59 PM Date of : 1945 Age: 78 Procedure: Upper GI endoscopy Indications: Dysphagia Providers: Rufus Heck DO Referring MD: Deloris Reilly Do Medicines: Monitored Anesthesia Care Patient Profile: This is a 78 year old female. Refer to note in patient chart for documentation of history and physical. Patient has symptoms of dysphagia with both liquids and solids. Complications: No immediate complications. Procedure: Pre-Anesthesia Assessment: - Prior to the procedure, a History and Physical was performed, and patient medications and allergies were reviewed. The patient is competent. The risks and benefits of the procedure and the sedation options and risks were discussed with the patient. All questions were answered and informed consent was obtained. Patient identification and proposed procedure were verified. Mental Status Examination: alert and oriented. Airway Examination: normal oropharyngeal airway and neck mobility. Respiratory Examination: clear to auscultation. CV Examination: normal. Prophylactic Antibiotics: The patient does not require prophylactic antibiotics. Prior Anticoagulants: The patient has taken no anticoagulant or antiplatelet agents. ASA Grade Assessment: IV - A patient with severe systemic disease that is a constant threat to life. After reviewing the risks and benefits, the patient was deemed in satisfactory condition to undergo the procedure. The anesthesia plan was to use monitored anesthesia care (MAC). Immediately prior to administration of medications, the patient was re-assessed for adequacy to receive sedatives. The heart rate, respiratory rate, oxygen saturations, blood pressure, adequacy of pulmonary ventilation, and response to care were monitored throughout the procedure. The physical status of the patient was re-assessed after the procedure. After obtaining informed consent, the endoscope was passed under direct vision. Throughout the procedure, the patient's blood pressure, pulse, and oxygen saturations were monitored continuously. The Endoscope was introduced through the mouth, and advanced to the second part of duodenum. The upper GI endoscopy was accomplished without difficulty. The patient tolerated the procedure well. Scope In: 4:53:02 PM Scope Out: 4:58:34 PM Total Procedure Duration Time 0 hours 5 minutes 32 seconds Findings: Abnormal motility was noted in the esophagus. The cricopharyngeus was abnormal. There is a decrease in motility of the esophageal body. The distal esophagus/lower esophageal sphincter is spastic, but gives up passage to the endoscope. Secondary peristaltic waves are noted. A guidewire was placed and the scope was withdrawn. Dilation was performed with a Savary dilator with no resistance at 54 Fr. The dilation site was examined and showed moderate mucosal disruption. Estimated blood loss was minimal. Biopsies were taken with a cold forceps for histology. Verification of patient identification for the specimen was done. Estimated blood loss was minimal. The entire examined stomach was normal. The first portion of the duodenum was normal. Impression: - Abnormal esophageal motility, suspicious for achalasia. Dilated. Biopsied. - Normal stomach. - Normal first portion of the duodenum. Recommendation: - Return patient to [facility] for [facility] care. - Resume previous diet. - Continue present medications. Procedure Code(s): --- Professional --- 82058, Esophagogastroduodenoscopy, flexible, transoral; with insertion of guide wire followed by passage of dilator(s) through esophagus over guide wire 87313, 59,51, Esophagogastroduodenoscopy, flexible, transoral; with biopsy, single or multiple CPT copyright 2021 [employer]. All rights reserved. The codes documented in this report are preliminary and upon steam fitter review may be revised to meet current compliance requirements. Rufus Heck DO 07/13/2024 5:20:48 PM This report has been signed electronically. Number of Addenda: 0 Note Initiated On: 07/13/2024 3:59 PM
--- NOTE | 2024-07-13 17:21 | OP.CCLET_ITS ---
07/13/2024 Ailyn Cardona Do Re : Upper GI endoscopy procedure for Marcia Lomeli Dear Dulce This procedure was performed on Saturday, July 13, 2024. My impressions and recommendations are as follows: Impressions : - Abnormal esophageal motility, suspicious for achalasia. Dilated. Biopsied. - Normal stomach. - Normal first portion of the duodenum. Recommendations : - Return patient to [facility] for ongoing care. - Resume previous diet. - Continue present medications. My findings are described in the full procedure note, which is enclosed. If I can be of further assistance, please feel free to contact me at . Sincerely, Rufus Heck, 07/13/2024 5:20:48 PM This report has been signed electronically.
--- NOTE | 2024-07-13 17:49 | PCM.TXEXTCAR ---
Diet Diet Order/Speech Therapy: 07/13/24 00:01 Diet: Soft foods and advance to regular as tolerated with slow progression Type of Dietary Supplement:: 8oz Ensure 4 times daily Diet Comments: Extra sauce/gravy, alternate bites/sips, distant supervision; magic cup w/L Routine Orders/Code Status O2 Frequency: PRN Keep PO Greater than or Equal to (%): 89 Routine Lab Work: CBC (7 days) and BMP (7 days) Code Status: Full Code Suggestions for Active Care Change Position every (hours): 2 Hours to sit in a chair: 2 Times a day to sit in chair: 3 Therapies Weight Bearing: Full weight bearing Physical Therapy: Eval and Treat Occupational Therapy: Eval and Treat Speech Therapy: Eval and Treat Problem/Diagnosis (1) Hypokalemia: Status: Acute Code(s): E87.6 - Hypokalemia (2) Weakness: Status: Acute Code(s): R53.1 - Weakness (3) Acute UTI: Status: Acute Code(s): N39.0 - Urinary tract infection, site not specified (4) MAGALI (acute kidney injury): Status: Acute Code(s): N17.9 - Acute kidney failure, unspecified Allergies/Procedures Done in Hospital Allergies meperidine (From Demerol) Allergy (Verified 07/08/24 12:14) Vomiting morphine Allergy (Verified 07/08/24 12:14) Vomiting Procedures: EGD, EKG and - (CT brain/chest x-ray) Type of Care/Length of Stay Estimated LOS: Convalescent Care Less Than 30 days Type of Care Needed: Skilled Rehab Potential: Good Prognosis: Good Additional Orders/Day of Discharge Day of Discharge: 07/13/24 Dietary and Speech Recommendations Dietitian Recommendations/Changes: Continue liberalized regular diet with consistency/texture as per INSURANCE INSPECTOR. Will add 120mL ensure plus HP 4 times per day w/ medpass. Will add magic cup w/ lunch. Adjust ONS as needed to pt preference to optimize PO and promote weight gain. Follow Up Care Please Follow Up With: Rufus Heck DO When: 2 weeks Discharge Plan Admission Admit Date/Time: 07/09/24 16:09 Primary Reason for Your Visit: Generalized weakness/Decreased appetite Attending Provider: Violeta Ang Primary Care Provider: Ailyn Will Consulting Providers: Matt Mendieta; Nelia Childress Discharge Orders/Prescriptions Prescriptions: New melatonin 3 mg Tablet 3 mg PO QHS PRN PRN (Reason: Insomnia) Qty: 0 0RF mirtazapine 15 mg Tablet 15 mg PO QHS Qty: 0 0RF Ensure Plus High Protein 0.08 gram-1.5 kcal/mL Liquid 120 ml PO 4X/DAY Qty: 0 0RF Continued atenolol 25 mg tablet 25 mg PO DAILY Patient Comments: TAKE 1 TABLET BY MOUTH EVERY DAY omeprazole 20 mg capsule,delayed release(DR/EC) 20 mg PO DAILY Patient Comments: TAKE 1 CAPSULE BY MOUTH EVERY DAY amlodipine 10 mg tablet 10 mg PO DAILY Patient Comments: TAKE 1 TABLET BY MOUTH EVERY DAY IN THE MORNING atorvastatin 40 mg tablet 40 mg PO DAILY Patient Comments: TAKE 1 TABLET BY MOUTH EVERY DAY ergocalciferol (vitamin D2) 1,250 mcg (50,000 unit) capsule 50,000 unit PO QWEEK Patient Comments: TAKE 1 CAPSULE BY MOUTH ON THURSDAYS levothyroxine 100 mcg tablet 100 mcg PO Patient Comments: TAKE 1 TABLET ON MONDAYS, WEDNESDAYS, AND FRIDAYS, ALTERNATE WITH 88 MCG ON OTHER DAY levothyroxine 88 mcg tablet [facility] Patient Comments: PLEASE SEE ATTACHED FOR DETAILED DIRECTIONS aspirin 81 mg tablet,delayed release (DR/EC) 81 mg PO DAILY Patient Comments: TAKE 1 TABLET BY MOUTH EVERY DAY Xarelto 20 mg tablet 20 mg PO QPM hydrochlorothiazide 12.5 mg capsule 12.5 mg PO DAILY potassium chloride [Klor-Con 10] 10 mEq tablet extended release 10 meq PO DAILY losartan [Cozaar] 100 mg tablet 100 mg PO DAILY Referrals / Follow Up: Ailyn Will DO [Primary Care Provider] - Within 1 Week (After discharge from skilled facility) Jimenez Parekh DO [Med Staff - Active Staff] - See Referral Note Disposition Disposition (needs filled in before D/C Order can be placed): [facility]
--- NOTE | 2024-07-13 18:24 | NURSING ---
Attempted to give report to [facility] and no answer.
[2024-07-13] MEDS: Ensure Plus High Protein 120 ML LIQUID PO (18:45)
--- NOTE | 2024-07-13 18:56 | POSTOPAN2_ITS ---
Anesthesia Postop Eval I Sum Postop Eval Completion status Anesthesia document: Postop Eval 1 completed: Yes Anesthesia Postop Eval I Summary Anesthesia Postop Eval I Summary: Anesthesia Postop Eval I: Assessment Summary Airway patent Yes 07/13/24 17:04 HR PAYROLL COORDINATOR.CSIR Spontaneous unlabored Yes 07/13/24 17:04 HR PAYROLL COORDINATOR.CSIR respirations Mental status nausea No 07/13/24 17:04 HR PAYROLL COORDINATOR.CSIR Vomiting No 07/13/24 17:04 HR PAYROLL COORDINATOR.CSIR Anesthesia Postop Eval I: Fluid Summary Crystalloid volume administer 5 07/13/24 17:04 HR PAYROLL COORDINATOR.CSIR (ml) Colloids volume administered ( ml) Blood Product volume administered (ml) Total IV fluid infused 5 07/13/24 17:04 HR PAYROLL COORDINATOR.CSIR Anesthesia Postop Eval I: Summary Notes Anesthesia Complication No 07/13/24 17:04 HR PAYROLL COORDINATOR.CSIR Anesthesia Complication Comment: Post-operative progress note Anesthesia: Postop Eval II Evaluation Mental status: Awake and Calm Pain Level: 0 nausea: No Vomiting: No
--- NOTE | 2024-07-13 18:56 | PCM.POSTANE2 ---
Anesthesia Postop Eval I Sum Postop Eval Completion status Anesthesia document: Postop Eval 1 completed: Yes Anesthesia Postop Eval I Summary Anesthesia Postop Eval I Summary: Anesthesia Postop Eval I: Assessment Summary Airway patent Yes 07/13/24 17:04 DIRECTOR OF [email or web address] Spontaneous unlabored Yes 07/13/24 17:04 DIRECTOR OF [email or web address] respirations Mental status nausea No 07/13/24 17:04 DIRECTOR OF [email or web address].CSIR Vomiting No 07/13/24 17:04 DIRECTOR OF [email or web address].CSIR Anesthesia Postop Eval I: Fluid Summary Crystalloid volume administer 5 07/13/24 17:04 DIRECTOR OF [email or web address].CSIR (ml) Colloids volume administered ( ml) Blood Product volume administered (ml) Total IV fluid infused 5 07/13/24 17:04 DIRECTOR OF [email or web address].CSIR Anesthesia Postop Eval I: Summary Notes Anesthesia Complication No 07/13/24 17:04 DIRECTOR OF [email or web address] Anesthesia Complication Comment: Post-operative progress note Anesthesia: Postop Eval II Evaluation Mental status: Awake and Calm Pain Level: 0 nausea: No Vomiting: No
[2024-07-13] MEDS: Atorvastatin Calcium 40 MG Tablet PO (20:03)
[2024-07-13] MEDS: Mirtazapine 15 MG Tablet PO (20:03)
[2024-07-13] MEDS: MELATONIN 3 MG TABLET PO (20:07)
--- NOTE | 2024-07-13 20:20 | NURSING ---
attempt to call report [phone]. this rn was only able to leave a voicemail asking them to return call to get report. per report dayshift rn attempted to call report as well.
== END 2024-07-13 21:00 | disposition skilled nursing facility (03) | DRG 640 ==
LOC: ED 16:28 → MS3 16:34
PROVIDERS: Anesthesiology; Internal Medicine Gastroenterology; Student in an Organized Health Care Education/Training Program; Admitting Provider Hospitalist; Emergency Provider Emergency Medicine; PCP Family Medicine; Referring Provider Emergency Medicine; Visit Provider Internal Medicine
PROC: 0DJ08ZZ Inspection of Upper Intestinal Tract, Via Natural or Artificial Opening Endoscopic (ICD-10-PCS; CPT 43235; principal; 2024-07-13 15:55)
DX: R62.7 Adult failure to thrive (principal); E43 Unspecified severe protein-calorie malnutrition; N17.9 Acute kidney failure, unspecified; C34.11 Malignant neoplasm of upper lobe, right bronchus or lung; K22.0 Achalasia of cardia; I10 Essential (primary) hypertension; I48.0 Paroxysmal atrial fibrillation; E87.6 Hypokalemia; I25.10 Atherosclerotic heart disease of native coronary artery without angina pectoris; K21.9 Gastro-esophageal reflux disease without esophagitis; E66.3 Overweight; T45.1X5A Adverse effect of antineoplastic and immunosuppressive drugs, initial encounter; R13.10 Dysphagia, unspecified; Z79.899 Other long term (current) drug therapy; Z79.82 Long term (current) use of aspirin; Z79.01 Long term (current) use of anticoagulants; Z87.891 Personal history of nicotine dependence; Z95.5 Presence of coronary angioplasty implant and graft; Z95.1 Presence of aortocoronary bypass graft; Z68.29 Body mass index [BMI] 29.0-29.9, adult; Z92.21 Personal history of antineoplastic chemotherapy; Z92.3 Personal history of irradiation
CPT/HCPCS: 36415; 70450; 71046; 80048; 80053; 81001; 82306; 83735; 84100; 84439; 84443; 85025; 85027; 85610; 85730; 87086; 87088; 87631; 88305; 90662; 92526; 92610; 93005; 94668; 97110; 97116; 97162; 97167; 97530; 97535; 97802; 99285; J7030; J7120; A4216; C1769; J2405